=== PATIENT | female | born 1955 | race Caucasian/White ===

== ENCOUNTER 2016-04-05 05:42 | Day surgery (SDC) | payer OTHER ==
[2016-04-01 12:16] VITALS: BMI 16.2
[2016-04-05] MEDS ORDERED: KETAMINE HCL 500 MG/10 ML VIAL ONE (08:21)
[2016-04-05] MEDS ORDERED: LACTATED RINGERS SOLUTION 1,000 ML IV SCH (08:45)
[2016-04-05 09:28] VITALS: TEMP 98.8
[2016-04-05 10:01] VITALS: BP 121/76; PULSE 90
== END 2016-04-05 10:20 | disposition home or self-care (01) ==
LOC: FECT 05:42
PROVIDERS: ATTEND Psychiatry & Neurology Psychiatry
PROC: GZB4ZZZ Other Electroconvulsive Therapy (ICD-10-PCS; principal; 2016-04-05 08:30)
DX: F33.2 Major depressive disorder, recurrent severe without psychotic features (principal)
CPT/HCPCS: 90870; 94760

== ENCOUNTER 2016-04-08 05:47 | Day surgery (SDC) | payer OTHER ==
[2016-04-05 09:13] VITALS: BMI 16.2
[2016-04-08] MEDS ORDERED: LACTATED RINGERS SOLUTION 1,000 ML IV SCH (06:30)
[2016-04-08] MEDS ORDERED: KETAMINE HCL 500 MG/10 ML VIAL ONE (08:26)
[2016-04-08 09:40] VITALS: TEMP 98.2
[2016-04-08 10:22] VITALS: BP 116/78; PULSE 80
== END 2016-04-08 10:24 | disposition home or self-care (01) ==
LOC: FECT 05:47
PROVIDERS: ATTEND Psychiatry & Neurology Psychiatry
PROC: GZB4ZZZ Other Electroconvulsive Therapy (ICD-10-PCS; principal; 2016-04-08 08:15)
DX: F33.2 Major depressive disorder, recurrent severe without psychotic features (principal)
CPT/HCPCS: 90870; 94760

== ENCOUNTER 2016-04-12 05:36 | Day surgery (SDC) | payer OTHER ==
[2016-04-07 15:54] VITALS: BMI 16.2
[2016-04-12] MEDS ORDERED: LACTATED RINGERS SOLUTION 1,000 ML IV SCH (07:30)
[2016-04-12] MEDS ORDERED: KETAMINE HCL 500 MG/10 ML VIAL ONE (08:13)
[2016-04-12 09:52] VITALS: TEMP 98.2
[2016-04-12 10:06] VITALS: BP 127/82; PULSE 84
== END 2016-04-12 10:00 | disposition home or self-care (01) ==
LOC: FECT 05:36
PROVIDERS: ATTEND Psychiatry & Neurology Psychiatry
PROC: GZB4ZZZ Other Electroconvulsive Therapy (ICD-10-PCS; principal; 2016-04-12 07:00)
DX: F33.2 Major depressive disorder, recurrent severe without psychotic features (principal)
CPT/HCPCS: 90870; 94760

== ENCOUNTER 2016-04-15 05:44 | Day surgery (SDC) | payer OTHER ==
[2016-04-13 12:48] VITALS: BMI 16.2
[2016-04-15] MEDS ORDERED: KETAMINE HCL 500 MG/10 ML VIAL ONE (08:07)
[2016-04-15 10:00] VITALS: TEMP 97.8
[2016-04-15 10:01] VITALS: BP 101/61; PULSE 84
== END 2016-04-15 10:00 | disposition home or self-care (01) ==
LOC: FECT 05:44
PROVIDERS: ATTEND Psychiatry & Neurology Psychiatry
PROC: GZB4ZZZ Other Electroconvulsive Therapy (ICD-10-PCS; principal; 2016-04-15 07:45)
DX: F33.2 Major depressive disorder, recurrent severe without psychotic features (principal)
CPT/HCPCS: 90870; 94760

== ENCOUNTER 2016-04-18 05:46 | Day surgery (SDC) | payer OTHER ==
[2016-04-18] MEDS ORDERED: ACETAMINOPHEN 325 MG TABLET (FP) PO PRN (07:10)
[2016-04-18] MEDS ORDERED: SUCCINYLCHOLINE CHLORIDE 200 MG/10 ML VIAL ONE (07:21)
[2016-04-18] MEDS ORDERED: PROPOFOL 20 ML ONE (07:21)
[2016-04-18 07:29] VITALS: BMI 16.1
[2016-04-18] MEDS ORDERED: KETAMINE HCL 500 MG/10 ML VIAL ONE (08:17)
[2016-04-18 09:45] VITALS: TEMP 97.6
[2016-04-18 09:58] VITALS: BP 110/81; PULSE 81
== END 2016-04-18 10:35 | disposition home or self-care (01) ==
LOC: FECT 05:46
PROVIDERS: ATTEND Psychiatry & Neurology Psychiatry
PROC: GZB4ZZZ Other Electroconvulsive Therapy (ICD-10-PCS; principal; 2016-04-18 08:45)
DX: F33.2 Major depressive disorder, recurrent severe without psychotic features (principal)
CPT/HCPCS: 90870; 94760

== ENCOUNTER 2016-04-20 05:11 | Day surgery (SDC) | payer OTHER ==
[2016-04-15 16:05] VITALS: BMI 16.1
[2016-04-20] MEDS ORDERED: KETAMINE HCL 500 MG/10 ML VIAL ONE (08:13)
[2016-04-20] MEDS ORDERED: LACTATED RINGERS SOLUTION 1,000 ML IV SCH (08:45)
[2016-04-20 09:21] VITALS: TEMP 98.9
[2016-04-20 10:47] VITALS: BP 100/60; PULSE 80
== END 2016-04-20 10:40 | disposition home or self-care (01) ==
LOC: FECT 05:11
PROVIDERS: ATTEND Psychiatry & Neurology Psychiatry
PROC: GZB4ZZZ Other Electroconvulsive Therapy (ICD-10-PCS; principal; 2016-04-20 08:15)
DX: F33.2 Major depressive disorder, recurrent severe without psychotic features (principal)
CPT/HCPCS: 90870; 94760

== ENCOUNTER 2016-04-22 05:40 | Day surgery (SDC) | payer OTHER ==
[2016-04-18 15:08] VITALS: BMI 19.1
[2016-04-22 07:29] VITALS: TEMP 97.5
[2016-04-22] MEDS ORDERED: KETAMINE HCL 500 MG/10 ML VIAL ONE (09:00)
[2016-04-22 11:49] VITALS: BP 124/74; PULSE 85
[2016-04-22] MEDS ORDERED: LACTATED RINGERS SOLUTION 1,000 ML IV SCH (12:45)
[2016-04-22] MEDS ORDERED: ONDANSETRON 4 MG/2 ML VIAL IVPUSH PRN (13:11)
== END 2016-04-22 11:00 | disposition home or self-care (01) ==
LOC: FECT 05:40
PROVIDERS: ATTEND Psychiatry & Neurology Psychiatry
PROC: GZB4ZZZ Other Electroconvulsive Therapy (ICD-10-PCS; principal; 2016-04-22 08:15)
DX: F33.2 Major depressive disorder, recurrent severe without psychotic features (principal)
CPT/HCPCS: 90870; 94760

== ENCOUNTER → 2016-04-25 | Day surgery (SDC) | payer OTHER ==
[2016-04-19 10:45] VITALS: BMI 16.1
[~2016-04-25] MED LIST: KETAMINE HCL 500 MG/10 ML VIAL ONE
[2016-04-25 08:39] VITALS: TEMP 97.5
[2016-04-25 09:13] VITALS: BP 109/60; PULSE 92
== END | disposition home or self-care (01) ==
LOC: FECT 05:50
PROVIDERS: ATTEND Psychiatry & Neurology Psychiatry
PROC: GZB4ZZZ Other Electroconvulsive Therapy (ICD-10-PCS; principal; 2016-04-25 08:00)
DX: F33.2 Major depressive disorder, recurrent severe without psychotic features (principal)
CPT/HCPCS: 90870; 94760

== ENCOUNTER 2016-04-27 05:37 | Day surgery (SDC) | payer OTHER ==
[2016-04-25 08:46] VITALS: BMI 16.1
[2016-04-27] MEDS ORDERED: ONDANSETRON 4 MG/2 ML VIAL IVPUSH PRN (07:56)
[2016-04-27] MEDS ORDERED: LACTATED RINGERS SOLUTION 1,000 ML IV SCH (08:00)
[2016-04-27 09:10] VITALS: BP 122/82; PULSE 87; TEMP 97.8
== END 2016-04-27 09:30 | disposition home or self-care (01) ==
LOC: FECT 05:37
PROVIDERS: ATTEND Psychiatry & Neurology Psychiatry
PROC: GZB4ZZZ Other Electroconvulsive Therapy (ICD-10-PCS; principal; 2016-04-27 07:30)
DX: F33.2 Major depressive disorder, recurrent severe without psychotic features (principal)
CPT/HCPCS: 90870; 94760

== ENCOUNTER 2016-04-29 05:42 | Day surgery (SDC) | payer OTHER ==
[2016-04-26 12:10] VITALS: BMI 16.1
[2016-04-29] MEDS ORDERED: KETAMINE HCL 500 MG/10 ML VIAL ONE (08:16)
[2016-04-29 09:54] VITALS: TEMP 97.8
[2016-04-29 10:14] VITALS: BP 132/82; PULSE 87
== END 2016-04-29 10:15 | disposition home or self-care (01) ==
LOC: FECT 05:42
PROVIDERS: ATTEND Psychiatry & Neurology Psychiatry
PROC: GZB4ZZZ Other Electroconvulsive Therapy (ICD-10-PCS; principal; 2016-04-29 07:45)
DX: F33.2 Major depressive disorder, recurrent severe without psychotic features (principal)
CPT/HCPCS: 90870; 94760

== ENCOUNTER 2016-05-02 05:37 | Day surgery (SDC) | payer OTHER ==
[2016-04-26 12:13] VITALS: BMI 16.1
--- NOTE | 2016-05-02 07:08 | HP ---
Admitting History and Physical - Admission History of Present Illness: patient is a 60 y/o female, with a past medical history of severe depression and colitis. Patient presents for ECT, her last ECT was 04/29/16. patient reports feeling well. She does reports feeling an improvement in depressive symptoms since starting ECT. Patient denies any suicidal or homicidal ideation. She reports compliance with prescribed medication. 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) - Social History Usual Living Arrangement: Yes: With Child ADL: Independent History of Recent Travel: No Home Medications - Allergies Allergies/Adverse Reactions: Allergies Allergy/AdvReac Type Severity Reaction Status Date / Time No Known Drug Allergies Allergy Verified 04/25/16 06:57 - Home Medications Home Medications: Ambulatory Orders Diazepam 10 mg PO HS 03/30/16 Diazepam 20 mg PO BID 03/30/16 Diphenoxylate 2.5/Atropine.025 [Lomotil -] 0.5 tab PO DAILY 03/30/16 Levomilnacipran HCl [Fetzima] 60 mg PO BID 03/30/16 Loratadine [Claritin] 10 mg PO DAILY 03/30/16 Multivitamins [Multivit ([facility] Formul[facility])] 1 tab PO HS 03/30/16 Pantoprazole Sodium [Protonix] 40 mg PO Q2D 03/30/16 Potassium Citrate [Potassium Citrate ER] 1,080 mg PO HS 03/30/16 Topiramate 50 mg PO DAILY 03/30/16 Topiramate 100 mg PO HS 03/30/16 Ziprasidone [Geodon -] 60 mg PO BID 03/30/16 Bupropion HCl [Wellbutrin Xl -] 450 mg PO DAILY 04/18/16 Family Disease History - Family Disease History Family History: Unremarkable Review of Systems - Review of Systems Constitutional: reports: No Symptoms Eyes: reports: No Symptoms HENT: reports: No Symptoms Neck: reports: No Symptoms Cardiovascular: reports: No Symptoms Respiratory: reports: No Symptoms Gastrointestinal: reports: No Symptoms Genitourinary: reports: No Symptoms Breasts: reports: No Symptoms Reported Musculoskeletal: reports: No Symptoms Integumentary: reports: No Symptoms Neurological: reports: No Symptoms Endocrine: reports: No Symptoms Hematology/Lymphatic: reports: No Symptoms Psychiatric: reports: Depression. denies: Anxiety Physical Examination Constitutional: Yes: No Distress, Calm, Cachectic Eyes: Yes: WNL, Conjunctiva Clear, EOM Intact HENT: Yes: WNL, Atraumatic, Normocephalic Neck: Yes: WNL, Supple, Trachea Midline Cardiovascular: Yes: WNL, Regular Rate and Rhythm, S1, S3 Respiratory: Yes: WNL, Regular, CTA Bilaterally Gastrointestinal: Yes: WNL, Normal Bowel Sounds, Soft ...Rectal Exam: Yes: Deferred Renal/: Yes: WNL. No: CVA Tenderness - Left, CVA Tenderness - Right Breast(s): Yes: WNL Musculoskeletal: Yes: WNL Extremities: Yes: WNL Edema: No Peripheral Pulses WNL: Yes Peripheral Pulses: Left Radial: 4+, Right Radial: 4+, Left Doralis Pedis: 3+, Right Dorsalis Pedis: 3+, Left Femoral: 3+, Right Femoral: 3+ Integumentary: Yes: WNL Neurological: Yes: WNL, Alert, Oriented ...Motor Strength: WNL Psychiatric: Yes: WNL, Alert, Oriented Labs: reviewed 03/18 Imaging - Results EKG: Image Reviewed, Other (nsr) Assessment/Plan pt is a 60 y/o female that presents for ECT, she has received ect in the past and denies any adverse reaction to anesthesia. labs and ekg reviewed low risk for ect. informed consent, risks & benefits to be obtained by Dr Machuca
[2016-05-02] MEDS ORDERED: KETAMINE HCL 500 MG/10 ML VIAL ONE (08:14)
[2016-05-02 09:12] VITALS: TEMP 97.9
[2016-05-02 10:11] VITALS: BP 130/79; PULSE 88
== END 2016-05-02 10:25 | disposition home or self-care (01) ==
LOC: FECT 05:37
PROVIDERS: ATTEND Psychiatry & Neurology Psychiatry
PROC: GZB4ZZZ Other Electroconvulsive Therapy (ICD-10-PCS; principal; 2016-05-02 07:15)
DX: F33.2 Major depressive disorder, recurrent severe without psychotic features (principal)
CPT/HCPCS: 90870; 94760

== ENCOUNTER 2016-05-04 05:39 | Day surgery (SDC) | payer OTHER ==
[2016-05-02 12:03] VITALS: BMI 16.1
[2016-05-04] MEDS ORDERED: ONDANSETRON 4 MG/2 ML VIAL IVPUSH PRN (07:22)
[2016-05-04] MEDS ORDERED: ACETAMINOPHEN 325 MG TABLET (FP) PO PRN (07:22)
[2016-05-04] MEDS ORDERED: LACTATED RINGERS SOLUTION 1,000 ML IV SCH (07:30)
[2016-05-04] MEDS ORDERED: KETAMINE HCL 500 MG/10 ML VIAL ONE (07:42)
[2016-05-04 08:35] VITALS: BP 110/74; TEMP 97.6
[2016-05-04 09:08] VITALS: PULSE 98
== END 2016-05-04 09:10 | disposition home or self-care (01) ==
LOC: FECT 05:39
PROVIDERS: ATTEND Psychiatry & Neurology Psychiatry
PROC: GZB4ZZZ Other Electroconvulsive Therapy (ICD-10-PCS; principal; 2016-05-04 07:45)
DX: F33.2 Major depressive disorder, recurrent severe without psychotic features (principal)
CPT/HCPCS: 90870; 94760

== ENCOUNTER 2016-05-06 05:37 | Day surgery (SDC) | payer OTHER ==
[2016-05-04 11:13] VITALS: BMI 16.1
[2016-05-06] MEDS ORDERED: LACTATED RINGERS SOLUTION 1,000 ML IV SCH (08:45)
[2016-05-06] MEDS ORDERED: KETAMINE HCL 500 MG/10 ML VIAL ONE (09:08)
[2016-05-06] MEDS ORDERED: ONDANSETRON 4 MG/2 ML VIAL IVPUSH PRN (09:12)
[2016-05-06 10:00] VITALS: TEMP 98.8
[2016-05-09 10:21] VITALS: BP 118/70; PULSE 90
== END 2016-05-06 10:30 | disposition home or self-care (01) ==
LOC: FECT 05:37
PROVIDERS: ATTEND Psychiatry & Neurology Psychiatry
PROC: GZB4ZZZ Other Electroconvulsive Therapy (ICD-10-PCS; principal; 2016-05-06 07:30)
DX: F33.2 Major depressive disorder, recurrent severe without psychotic features (principal)
CPT/HCPCS: 90870; 94760

== ENCOUNTER 2016-05-09 05:48 | Day surgery (SDC) | payer OTHER ==
[2016-05-04 11:16] VITALS: BMI 17.0
[2016-05-09 07:26] VITALS: TEMP 97.8
[2016-05-09] MEDS ORDERED: KETAMINE HCL 500 MG/10 ML VIAL ONE (08:13)
[2016-05-09] MEDS ORDERED: LACTATED RINGERS SOLUTION 1,000 ML IV SCH (08:30)
[2016-05-09 09:44] VITALS: PULSE 89
[2016-05-09 09:57] VITALS: BP 110/74
== END 2016-05-09 10:20 | disposition home or self-care (01) ==
LOC: FECT 05:48
PROVIDERS: ATTEND Psychiatry & Neurology Psychiatry
PROC: GZB4ZZZ Other Electroconvulsive Therapy (ICD-10-PCS; principal; 2016-05-09 08:00)
DX: F33.2 Major depressive disorder, recurrent severe without psychotic features (principal)
CPT/HCPCS: 90870; 94760

== ENCOUNTER 2016-05-16 05:45 | Day surgery (SDC) | payer OTHER ==
[2016-05-06 17:00] VITALS: BMI 16.1
[2016-05-16] MEDS ORDERED: ONDANSETRON 4 MG/2 ML VIAL IVPUSH PRN (06:23)
[2016-05-16 07:24] VITALS: TEMP 97.8
[2016-05-16 10:32] VITALS: BP 106/71; PULSE 83
== END 2016-05-16 10:37 | disposition home or self-care (01) ==
LOC: FECT 05:45
PROVIDERS: ATTEND Psychiatry & Neurology Psychiatry
PROC: GZB4ZZZ Other Electroconvulsive Therapy (ICD-10-PCS; principal; 2016-05-16 08:00)
DX: F33.2 Major depressive disorder, recurrent severe without psychotic features (principal)
CPT/HCPCS: 90870; 94760

== ENCOUNTER 2016-05-19 05:27 | Day surgery (SDC) | payer OTHER ==
[2016-05-16 13:31] VITALS: BMI 17.0
[2016-05-19] MEDS ORDERED: KETAMINE HCL 500 MG/10 ML VIAL ONE (07:46)
[2016-05-19] MEDS ORDERED: ONDANSETRON 4 MG/2 ML VIAL IVPUSH PRN (08:36)
[2016-05-19 09:06] VITALS: TEMP 98
[2016-05-19 09:41] VITALS: BP 120/82; PULSE 82
== END 2016-05-19 09:30 | disposition home or self-care (01) ==
LOC: FECT 05:27
PROVIDERS: ATTEND Psychiatry & Neurology Psychiatry
PROC: GZB4ZZZ Other Electroconvulsive Therapy (ICD-10-PCS; principal; 2016-05-19 07:15)
DX: F33.2 Major depressive disorder, recurrent severe without psychotic features (principal)
CPT/HCPCS: 90870; 94760

== ENCOUNTER 2016-05-23 05:43 | Day surgery (SDC) | payer OTHER ==
[2016-05-16 17:10] VITALS: BMI 16.1
[2016-05-23 07:00] VITALS: TEMP 98
[2016-05-23 08:40] VITALS: BP 113/73; PULSE 94
== END 2016-05-23 09:00 | disposition home or self-care (01) ==
LOC: FECT 05:43
PROVIDERS: ATTEND Psychiatry & Neurology Psychiatry
PROC: GZB4ZZZ Other Electroconvulsive Therapy (ICD-10-PCS; principal; 2016-05-23 07:00)
DX: F33.2 Major depressive disorder, recurrent severe without psychotic features (principal)
CPT/HCPCS: 90870; 94760

== ENCOUNTER 2016-05-26 05:38 | Day surgery (SDC) | payer OTHER ==
[2016-05-17 11:08] VITALS: BMI 17.0
[2016-05-26] MEDS ORDERED: ONDANSETRON 4 MG/2 ML VIAL IVPUSH PRN (07:08)
[2016-05-26] MEDS ORDERED: LACTATED RINGERS SOLUTION 1,000 ML IV SCH (07:15)
[2016-05-26] MEDS ORDERED: KETAMINE HCL 500 MG/10 ML VIAL ONE (07:27)
[2016-05-26 08:32] VITALS: TEMP 97.7
[2016-05-26 09:33] VITALS: BP 104/74; PULSE 91
== END 2016-05-26 09:15 | disposition home or self-care (01) ==
LOC: FECT 05:38
PROVIDERS: ATTEND Psychiatry & Neurology Psychiatry
PROC: GZB4ZZZ Other Electroconvulsive Therapy (ICD-10-PCS; principal; 2016-05-26 07:00)
DX: F33.2 Major depressive disorder, recurrent severe without psychotic features (principal)
CPT/HCPCS: 90870; 94760

== ENCOUNTER 2016-05-30 05:35 | Day surgery (SDC) | payer OTHER ==
[2016-05-27 10:44] VITALS: BMI 17.0
[2016-05-30] MEDS ORDERED: ONDANSETRON 4 MG/2 ML VIAL IVPUSH PRN ×2 (07:05→07:53)
--- NOTE | 2016-05-30 07:10 | HP ---
Admitting History and Physical - Admission History of Present Illness: patient is a 60 y/o female with a past medical history of depression and colitis that presents for ect.. Her last ECT was 05/26/16. She reports feeling well and reports an improvement in depressive symptoms since starting ect. she denies any recent medication changes and denies any recent illness or hospitalizations. patient denies any suicidal or homicidal ideation, visual or auditory hallucination. 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) - Social History Usual Living Arrangement: Yes: With Child ADL: Independent History of Recent Travel: No Home Medications - Allergies Allergies/Adverse Reactions: Allergies Allergy/AdvReac Type Severity Reaction Status Date / Time No Known Drug Allergies Allergy Verified 05/02/16 07:32 - Home Medications Home Medications: Ambulatory Orders Diazepam 10 mg PO HS 03/30/16 Diazepam 20 mg PO BID 03/30/16 Diphenoxylate 2.5/Atropine.025 [Lomotil -] 0.5 tab PO TID 03/30/16 Levomilnacipran HCl [Fetzima] 60 mg PO BID 03/30/16 Loratadine [Claritin] 10 mg PO DAILY 03/30/16 Multivitamins [Multivit ([facility] Formul[facility])] 1 tab PO HS 03/30/16 Pantoprazole Sodium [Protonix] 40 mg PO Q2D 03/30/16 Potassium Citrate [Potassium Citrate ER] 1,080 mg PO HS 03/30/16 Topiramate 50 mg PO DAILY 03/30/16 Topiramate 100 mg PO HS 03/30/16 Ziprasidone [Geodon -] 60 mg PO BID 03/30/16 Bupropion HCl [Wellbutrin Xl -] 450 mg PO DAILY 04/18/16 Family Disease History - Family Disease History Family History: Unremarkable Review of Systems - Review of Systems Constitutional: reports: No Symptoms Eyes: reports: No Symptoms HENT: reports: No Symptoms Neck: reports: No Symptoms Cardiovascular: reports: No Symptoms Respiratory: reports: No Symptoms Gastrointestinal: reports: No Symptoms Genitourinary: reports: No Symptoms Musculoskeletal: reports: No Symptoms Integumentary: reports: No Symptoms Neurological: reports: No Symptoms Endocrine: reports: No Symptoms Hematology/Lymphatic: reports: No Symptoms Psychiatric: reports: No Symptoms Physical Examination Constitutional: Yes: Well Nourished, No Distress, Calm, Thin Eyes: Yes: WNL, Conjunctiva Clear, EOM Intact HENT: Yes: WNL, Atraumatic, Normocephalic Neck: Yes: WNL, Supple, Trachea Midline Cardiovascular: Yes: WNL, Regular Rate and Rhythm, S1, S2 Respiratory: Yes: WNL, Regular, CTA Bilaterally Gastrointestinal: Yes: WNL, Normal Bowel Sounds, Soft ...Rectal Exam: Yes: Deferred Renal/: Yes: WNL Breast(s): Yes: WNL Musculoskeletal: Yes: WNL Extremities: Yes: WNL Edema: No Peripheral Pulses WNL: Yes Peripheral Pulses: Left Radial: 4+, Right Radial: 4+, Left Doralis Pedis: 3+, Right Dorsalis Pedis: 3+, Left Femoral: 3+, Right Femoral: 3+ Integumentary: Yes: WNL Neurological: Yes: WNL, Alert, Oriented ...Motor Strength: WNL Psychiatric: Yes: WNL, Alert, Oriented Labs: reviewed 04/01/16 Imaging - Results EKG: Image Reviewed, Other (nsr no ischemic changes) Assessment/Plan pt is a 60 y/o female that presents for ect, pt has received ect in the past denies any adverse reaction to anesthesia labs and ekg reviewed pt is low risk for procedure informed consent, risks/benefits to be obtained by Dr Machuca
[2016-05-30] MEDS ORDERED: KETAMINE HCL 500 MG/10 ML VIAL ONE (07:41)
[2016-05-30] MEDS ORDERED: LACTATED RINGERS SOLUTION 1,000 ML IV SCH (08:00)
[2016-05-30 08:21] VITALS: PULSE 89
[2016-05-30 08:41] VITALS: TEMP 97.7
[2016-05-30] MEDS ORDERED: PROMETHAZINE HCL 25 MG/1 ML VIAL IVPUSH PRN (08:53)
[2016-05-30 08:56] VITALS: BP 95/68
== END 2016-05-30 09:40 | disposition home or self-care (01) ==
LOC: FECT 05:35
PROVIDERS: ATTEND Psychiatry & Neurology Psychiatry
PROC: GZB4ZZZ Other Electroconvulsive Therapy (ICD-10-PCS; principal; 2016-05-30 07:30)
DX: F33.2 Major depressive disorder, recurrent severe without psychotic features (principal)
CPT/HCPCS: 90870; 94760

== ENCOUNTER 2016-06-06 05:35 | Day surgery (SDC) | payer OTHER ==
[2016-05-30 16:52] VITALS: BMI 17.0
[2016-06-06] MEDS ORDERED: KETAMINE HCL 500 MG/10 ML VIAL ONE (07:23)
[2016-06-06 08:58] VITALS: TEMP 97.8
[2016-06-06 09:00] VITALS: BP 121/71; PULSE 66
== END 2016-06-06 09:30 | disposition home or self-care (01) ==
LOC: FECT 05:35
PROVIDERS: ATTEND Psychiatry & Neurology Psychiatry
PROC: GZB4ZZZ Other Electroconvulsive Therapy (ICD-10-PCS; principal; 2016-06-06 07:00)
DX: F33.2 Major depressive disorder, recurrent severe without psychotic features (principal)
CPT/HCPCS: 90870; 94760

== ENCOUNTER 2016-06-22 05:37 | Day surgery (SDC) | payer OTHER ==
[~2016-06-22 05:37] MED LIST changes: -KETAMINE HCL 500 MG/10 ML VIAL ONE; +LACTATED RINGERS SOLUTION 1,000 ML IV SCH
[2016-06-22 07:12] VITALS: BMI 16.0
[2016-06-22] MEDS ORDERED: KETAMINE HCL 500 MG/10 ML VIAL ONE (07:35)
[2016-06-22 15:24] VITALS: BP 132/77; PULSE 67; TEMP 97.9
== END 2016-06-22 09:10 | disposition home or self-care (01) ==
LOC: FECT 05:37
PROVIDERS: ATTEND Psychiatry & Neurology Psychiatry
PROC: GZB4ZZZ Other Electroconvulsive Therapy (ICD-10-PCS; principal; 2016-06-22 07:00)
DX: F33.2 Major depressive disorder, recurrent severe without psychotic features (principal)
CPT/HCPCS: 90870; 94760

== ENCOUNTER 2016-06-27 05:43 | Day surgery (SDC) | payer OTHER ==
[2016-06-24 09:08] VITALS: BMI 16.0
[2016-06-27] MEDS ORDERED: ONDANSETRON 4 MG/2 ML VIAL IVPUSH PRN (06:44)
--- NOTE | 2016-06-27 06:57 | HP ---
Admitting History and Physical - Admission History of Present Illness: patient is a 60 y/o female of depression and colitis that presents for ECT. Her last ECT was 06/22/16. Patient reports feeling well, she denies any recent illness or hospitalizations. Patient does reports an improvment in depressive symptoms since starting ECT. 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) - Social History Usual Living Arrangement: Yes: With Child ADL: Independent History of Recent Travel: No Home Medications - Allergies Allergies/Adverse Reactions: Allergies Allergy/AdvReac Type Severity Reaction Status Date / Time No Known Drug Allergies Allergy Verified 06/24/16 09:00 - Home Medications Home Medications: Ambulatory Orders Diazepam 10 mg PO HS 03/30/16 Diazepam 20 mg PO BID 03/30/16 Levomilnacipran HCl [Fetzima] 60 mg PO BID 03/30/16 Loratadine [Claritin] 10 mg PO DAILY 03/30/16 Multivitamins [Multivit ([facility] Form[facility])] 1 tab PO HS 03/30/16 Pantoprazole Sodium [Protonix] 40 mg PO Q2D 03/30/16 Potassium Citrate [Potassium Citrate ER] 1,080 mg PO HS 03/30/16 Topiramate 50 mg PO DAILY 03/30/16 Topiramate 100 mg PO HS 03/30/16 Ziprasidone [Geodon -] 60 mg PO BID 03/30/16 Bupropion HCl [Wellbutrin Xl -] 450 mg PO DAILY 04/18/16 Budesonide [Uceris (Nonformulary)] 9 mg PO DAILY 06/13/16 Amoxicillin - [Amoxicillin 875mg Tablet -] 875 mg PO BID 06/22/16 Ibuprofen 800 mg PO Q8H PRN 06/22/16 Family Disease History - Family Disease History Family History: Unremarkable Review of Systems - Review of Systems Constitutional: reports: No Symptoms Eyes: reports: No Symptoms HENT: reports: No Symptoms Neck: reports: No Symptoms Cardiovascular: reports: No Symptoms Respiratory: reports: No Symptoms Gastrointestinal: reports: No Symptoms Genitourinary: reports: No Symptoms Breasts: reports: No Symptoms Reported Musculoskeletal: reports: No Symptoms Integumentary: reports: No Symptoms Neurological: reports: No Symptoms Endocrine: reports: No Symptoms Hematology/Lymphatic: reports: No Symptoms Psychiatric: reports: No Symptoms Physical Examination Constitutional: Yes: Well Nourished, No Distress, Calm Eyes: Yes: WNL, Conjunctiva Clear, EOM Intact HENT: Yes: WNL, Atraumatic, Normocephalic Neck: Yes: WNL, Supple, Trachea Midline Cardiovascular: Yes: WNL, Regular Rate and Rhythm, S1, S2 Respiratory: Yes: WNL, Regular, CTA Bilaterally Gastrointestinal: Yes: WNL, Normal Bowel Sounds, Soft ...Rectal Exam: Yes: Deferred Renal/: Yes: WNL Musculoskeletal: Yes: WNL Extremities: Yes: WNL Edema: No Peripheral Pulses WNL: Yes Peripheral Pulses: Left Radial: 4+, Right Radial: 4+, Left Doralis Pedis: 3+, Right Dorsalis Pedis: 3+, Left Femoral: 3+, Right Femoral: 3+ Integumentary: Yes: WNL Neurological: Yes: WNL, Alert, Oriented ...Motor Strength: WNL Psychiatric: Yes: WNL, Alert, Oriented Labs: reviewed 04/01/16 Imaging - Results EKG: Report Reviewed, Image Reviewed, Other (nsr no ischemic changes) Assessment/Plan patient is a 60 y/o female that presents for ECT, pt has received ect in the past and denies any adverse reaction to anesthesia labs and ekg reviewed pt is low risk for procedure informed consent, risk/benefits to be obtained by Dr Machuca
[2016-06-27] MEDS ORDERED: KETAMINE HCL 500 MG/10 ML VIAL ONE (07:41)
[2016-06-27 11:23] VITALS: TEMP 98.2
[2016-06-27 11:26] VITALS: BP 95/65; PULSE 92
== END 2016-06-27 09:30 | disposition home or self-care (01) ==
LOC: FECT 05:43
PROVIDERS: ATTEND Psychiatry & Neurology Psychiatry
PROC: GZB4ZZZ Other Electroconvulsive Therapy (ICD-10-PCS; principal; 2016-06-27 07:30)
DX: F33.2 Major depressive disorder, recurrent severe without psychotic features (principal)
CPT/HCPCS: 90870; 94760

== ENCOUNTER 2016-07-06 05:47 | Day surgery (SDC) | payer OTHER ==
[2016-07-05 10:49] VITALS: BMI 16.0
[2016-07-06] MEDS ORDERED: KETAMINE HCL 500 MG/10 ML VIAL ONE (07:47)
[2016-07-06] MEDS ORDERED: ONDANSETRON 4 MG/2 ML VIAL IVPUSH PRN (08:50)
[2016-07-06 09:18] VITALS: TEMP 97.7
[2016-07-06 09:19] VITALS: BP 104/74; PULSE 79
== END 2016-07-06 09:20 | disposition home or self-care (01) ==
LOC: FECT 05:47
PROVIDERS: ATTEND Psychiatry & Neurology Psychiatry
PROC: GZB4ZZZ Other Electroconvulsive Therapy (ICD-10-PCS; principal; 2016-07-06 07:45)
DX: F33.2 Major depressive disorder, recurrent severe without psychotic features (principal)
CPT/HCPCS: 90870; 94760

== ENCOUNTER 2016-07-18 05:48 | Day surgery (SDC) | payer OTHER ==
[2016-07-12 10:34] VITALS: BMI 16.0
[2016-07-18] MEDS ORDERED: KETAMINE HCL 500 MG/10 ML VIAL ONE (08:55)
[2016-07-18] MEDS ORDERED: AMPICILLIN NA/SULBACTAM NA 1.5 GM VIAL ONE (09:53)
[2016-07-18] MEDS ORDERED: SODIUM CHLORIDE 0.9% P/F 10 ML VIAL IJ ONE (09:53)
[2016-07-18 11:07] VITALS: TEMP 97.7
[2016-07-18 11:11] VITALS: BP 104/74; PULSE 88
== END 2016-07-18 11:00 | disposition home or self-care (01) ==
LOC: FECT 05:48
PROVIDERS: ATTEND Psychiatry & Neurology Psychiatry
PROC: GZB4ZZZ Other Electroconvulsive Therapy (ICD-10-PCS; principal; 2016-07-18 08:30)
DX: F33.2 Major depressive disorder, recurrent severe without psychotic features (principal)
CPT/HCPCS: 90870; 94760

== ENCOUNTER 2016-07-29 05:43 | Day surgery (SDC) | payer OTHER ==
--- NOTE | 2016-07-29 07:16 | HP ---
Admitting History and Physical - Admission History of Present Illness: patient is a 60 y/o female with a past medical history of depression. patient presents for ECT, her last ECT was 07/23/16. patient reports feeling well, she reports an increase in [place]. She reports compliance with prescribed medications. She reports an improvement in depressive symptoms since starting ECT. She denies any suicidal or homicidal ideation or visual or auditory hallucinations. 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) - Social History Usual Living Arrangement: Yes: Other (with son) ADL: Independent History of Recent Travel: No Home Medications - Allergies Allergies/Adverse Reactions: Allergies Allergy/AdvReac Type Severity Reaction Status Date / Time No Known Drug Allergies Allergy Verified 06/24/16 09:00 - Home Medications Home Medications: Ambulatory Orders Diazepam 10 mg PO HS 03/30/16 Diazepam 20 mg PO BID 03/30/16 Levomilnacipran HCl [Fetzima] 60 mg PO BID 03/30/16 Loratadine [Claritin] 10 mg PO DAILY 03/30/16 Multivitamins [Multivit ([facility] Formul[facility])] 1 tab PO HS 03/30/16 Pantoprazole Sodium [Protonix] 40 mg PO Q2D 03/30/16 Potassium Citrate [Potassium Citrate ER] 1,080 mg PO HS 03/30/16 Topiramate 50 mg PO DAILY 03/30/16 Topiramate 100 mg PO HS 03/30/16 Ziprasidone [Geodon -] 60 mg PO BID 03/30/16 Bupropion HCl [Wellbutrin Xl -] 450 mg PO DAILY 04/18/16 Budesonide [Uceris (Nonformulary)] 9 mg PO DAILY 06/13/16 Ibuprofen 800 mg PO Q8H PRN 06/22/16 Family Disease History - Family Disease History Family History: Unremarkable Review of Systems - Review of Systems Constitutional: reports: No Symptoms Eyes: reports: No Symptoms HENT: reports: No Symptoms Neck: reports: No Symptoms Cardiovascular: reports: No Symptoms Respiratory: reports: No Symptoms Gastrointestinal: reports: No Symptoms Genitourinary: reports: No Symptoms Musculoskeletal: reports: No Symptoms Integumentary: reports: No Symptoms Neurological: reports: No Symptoms Endocrine: reports: No Symptoms Hematology/Lymphatic: reports: No Symptoms Psychiatric: reports: No Symptoms Physical Examination Constitutional: Yes: Well Nourished, No Distress, Calm, Thin Eyes: Yes: WNL, Conjunctiva Clear, EOM Intact HENT: Yes: WNL, Atraumatic, Normocephalic Neck: Yes: WNL, Supple, Trachea Midline Cardiovascular: Yes: WNL, Regular Rate and Rhythm Respiratory: Yes: WNL, Regular, CTA Bilaterally Gastrointestinal: Yes: WNL, Normal Bowel Sounds, Soft ...Rectal Exam: Yes: Deferred Renal/: Yes: WNL Breast(s): Yes: WNL Musculoskeletal: Yes: WNL Extremities: Yes: WNL Edema: No Peripheral Pulses WNL: Yes Peripheral Pulses: Left Radial: 4+, Right Radial: 4+, Left Doralis Pedis: 3+, Right Dorsalis Pedis: 3+, Left Femoral: 3+, Right Femoral: 3+ Integumentary: Yes: WNL Neurological: Yes: WNL, Alert, Oriented ...Motor Strength: WNL Psychiatric: Yes: WNL, Alert, Oriented Labs: reviewed 03/18 Imaging - Results EKG: Image Reviewed (nsr no ischemic changes) Assessment/Plan pt is 60 y/o female that presents for ECT pt has received ect in the past and denies any adverse reaction to anesthesia labs and ekg reviewed informed consent and risks/benefits to be obtained by Dr Machuca
[2016-07-29 07:24] VITALS: BMI 16.0
[2016-07-29] MEDS ORDERED: KETAMINE HCL 500 MG/10 ML VIAL ONE (08:14)
[2016-07-29] MEDS ORDERED: ONDANSETRON 4 MG/2 ML VIAL IVPUSH PRN (08:44)
[2016-07-29] MEDS ORDERED: LACTATED RINGERS SOLUTION 1,000 ML IV SCH (08:45)
[2016-07-29 10:50] VITALS: TEMP 98
[2016-07-29 10:52] VITALS: PULSE 87
[2016-07-29 10:59] VITALS: BP 102/66
== END 2016-07-29 10:00 | disposition home or self-care (01) ==
LOC: FECT 05:43
PROVIDERS: ATTEND Psychiatry & Neurology Psychiatry
PROC: GZB4ZZZ Other Electroconvulsive Therapy (ICD-10-PCS; principal; 2016-07-29 08:00)
DX: F33.2 Major depressive disorder, recurrent severe without psychotic features (principal)
CPT/HCPCS: 90870; 94760

== ENCOUNTER 2016-08-15 05:43 | Day surgery (SDC) | payer OTHER ==
[2016-08-09 11:10] VITALS: BMI 16.0
[2016-08-15] MEDS ORDERED: KETAMINE HCL 500 MG/10 ML VIAL ONE (08:25)
[2016-08-15 09:43] VITALS: TEMP 97.7
[2016-08-15 10:27] VITALS: BP 102/72; PULSE 66
== END 2016-08-15 10:55 | disposition home or self-care (01) ==
LOC: FECT 05:43
PROVIDERS: ATTEND Psychiatry & Neurology Psychiatry
PROC: GZB4ZZZ Other Electroconvulsive Therapy (ICD-10-PCS; principal; 2016-08-15 07:45)
DX: F33.2 Major depressive disorder, recurrent severe without psychotic features (principal)
CPT/HCPCS: 90870; 94760

== ENCOUNTER 2016-08-30 05:45 | Day surgery (SDC) | payer OTHER ==
--- NOTE | 2016-08-30 06:59 | HP ---
Admitting History and Physical - Admission History of Present Illness: patient is a 61 y/o female with a past medical history of depression, patient presents for ECT, her last ECT was 08/15/16. She reports feeling well. Patient reports an improvement in depressive symptoms since starting ect. Patient reports tapering her bud[place]ide. Patient denies any recent illness or hosptializations. She reports compliance with prescribed medications. . patient denies any suicidal or homicidal ideation, visual or auditory hallucinations. 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) - Social History Usual Living Arrangement: Yes: Other (with son) ADL: Independent History of Recent Travel: No Home Medications - Allergies Allergies/Adverse Reactions: Allergies Allergy/AdvReac Type Severity Reaction Status Date / Time No Known Drug Allergies Allergy Verified 08/15/16 07:52 - Home Medications Home Medications: Ambulatory Orders Diazepam 10 mg PO HS 03/30/16 Diazepam 20 mg PO BID 03/30/16 Levomilnacipran HCl [Fetzima] 60 mg PO BID 03/30/16 Loratadine [Claritin] 10 mg PO DAILY 03/30/16 Multivitamins [Multivit ([facility] Formul[facility])] 1 tab PO HS 03/30/16 Pantoprazole Sodium [Protonix] 40 mg PO Q2D 03/30/16 Potassium Citrate [Potassium Citrate ER] 1,080 mg PO HS 03/30/16 Topiramate 50 mg PO DAILY 03/30/16 Topiramate 100 mg PO HS 03/30/16 Ziprasidone [Geodon -] 80 mg PO BID 03/30/16 Bupropion HCl [Wellbutrin Xl -] 450 mg PO DAILY 04/18/16 Budesonide [Uceris (Nonformulary)] 9 mg PO DAILY 06/13/16 Family Disease History - Family Disease History Family History: Unremarkable Review of Systems - Review of Systems Constitutional: reports: No Symptoms Eyes: reports: No Symptoms HENT: reports: No Symptoms Neck: reports: No Symptoms Cardiovascular: reports: No Symptoms Respiratory: reports: No Symptoms Gastrointestinal: reports: No Symptoms Genitourinary: reports: No Symptoms Musculoskeletal: reports: No Symptoms Integumentary: reports: No Symptoms Neurological: reports: No Symptoms Endocrine: reports: No Symptoms Hematology/Lymphatic: reports: No Symptoms Psychiatric: reports: No Symptoms Physical Examination Constitutional: Yes: Well Nourished, No Distress, Calm Eyes: Yes: WNL, Conjunctiva Clear, EOM Intact HENT: Yes: WNL, Atraumatic, Normocephalic Neck: Yes: WNL, Supple, Trachea Midline Cardiovascular: Yes: WNL, Regular Rate and Rhythm, S1, S2 Respiratory: Yes: WNL, Regular, CTA Bilaterally Gastrointestinal: Yes: WNL, Normal Bowel Sounds, Soft ...Rectal Exam: Yes: Deferred Renal/: Yes: WNL Breast(s): Yes: WNL Musculoskeletal: Yes: WNL Extremities: Yes: WNL Edema: No Peripheral Pulses WNL: Yes Peripheral Pulses: Left Radial: 4+, Right Radial: 4+, Left Doralis Pedis: 3+, Right Dorsalis Pedis: 3+, Left Femoral: 3+, Right Femoral: 3+ Integumentary: Yes: WNL Neurological: Yes: WNL, Alert, Oriented ...Motor Strength: WNL Psychiatric: Yes: WNL, Alert, Oriented Labs: reviewed 03/18 Imaging - Results EKG: Image Reviewed, Other Assessment/Plan pt is a 61 y/o female that presents for ect, she has received ect in the past and denies any adverse reaction to anesthesia. labs and ekg reviewed pt is low risk for procedure informed consent, risks, benefits to be obtained by Dr Machuca
[2016-08-30 07:21] VITALS: BMI 16.0
[2016-08-30] MEDS ORDERED: ACETAMINOPHEN 325 MG TABLET (FP) PO PRN (07:51)
[2016-08-30] MEDS ORDERED: ONDANSETRON 4 MG/2 ML VIAL IVPUSH PRN (07:51)
[2016-08-30] MEDS ORDERED: KETAMINE HCL 500 MG/10 ML VIAL ONE (08:15)
[2016-08-30 09:27] VITALS: TEMP 98
[2016-08-30 09:42] VITALS: BP 108/73; PULSE 83
== END 2016-08-30 10:25 | disposition home or self-care (01) ==
LOC: FECT 05:45
PROVIDERS: ATTEND Psychiatry & Neurology Psychiatry
PROC: GZB4ZZZ Other Electroconvulsive Therapy (ICD-10-PCS; principal; 2016-08-30 08:00)
DX: F33.2 Major depressive disorder, recurrent severe without psychotic features (principal)
CPT/HCPCS: 90870; 94760

== ENCOUNTER 2016-09-12 05:36 | Day surgery (SDC) | payer OTHER ==
[2016-08-30 12:53] VITALS: BMI 16.0
[2016-09-12] MEDS ORDERED: LACTATED RINGERS SOLUTION 1,000 ML IV SCH (06:30)
[2016-09-12] MEDS ORDERED: KETAMINE HCL 500 MG/10 ML VIAL ONE (08:00)
[2016-09-12] MEDS ORDERED: ACETAMINOPHEN 1000 MG/100 ML VIAL (NON FORMULARY) IVPB PRN (08:24)
[2016-09-12 09:25] VITALS: TEMP 97.5
[2016-09-12 10:15] VITALS: BP 94/68; PULSE 86
== END 2016-09-12 10:30 | disposition home or self-care (01) ==
LOC: FECT 05:36
PROVIDERS: ATTEND Psychiatry & Neurology Psychiatry
PROC: GZB4ZZZ Other Electroconvulsive Therapy (ICD-10-PCS; principal; 2016-09-12 07:00)
DX: F33.2 Major depressive disorder, recurrent severe without psychotic features (principal)
CPT/HCPCS: 90870; 94760

== ENCOUNTER 2016-09-26 05:37 | Day surgery (SDC) | payer OTHER ==
[2016-09-26] MEDS ORDERED: KETAMINE HCL 500 MG/10 ML VIAL ONE (08:53)
[2016-09-26] MEDS ORDERED: LACTATED RINGERS SOLUTION 1,000 ML IV SCH (09:30)
[2016-09-26 10:37] VITALS: PULSE 84; TEMP 97.5
[2016-09-26 10:40] VITALS: BP 112/70
== END 2016-09-26 10:55 | disposition home or self-care (01) ==
LOC: FECT 05:37
PROVIDERS: ATTEND Psychiatry & Neurology Psychiatry
PROC: GZB4ZZZ Other Electroconvulsive Therapy (ICD-10-PCS; principal; 2016-09-26 07:00)
DX: F33.2 Major depressive disorder, recurrent severe without psychotic features (principal)
CPT/HCPCS: 90870; 94760

== ENCOUNTER 2016-10-10 05:40 | Day surgery (SDC) | payer OTHER ==
--- NOTE | 2016-10-10 06:58 | HP ---
Admitting History and Physical - Admission History of Present Illness: Patient is a 61 y/o female with a past medical history of depression and colitis. Patient presents for ect, her last ect was 09/28/16. Patient reports feeling well, she denies any changes in medications. Patient denies any recent illness or hospitalizations. She denies any suicidal or homicidal ideation, visual or auditory hallucinations. 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) - Social History Usual Living Arrangement: Yes: With Child ADL: Independent History of Recent Travel: No Home Medications - Allergies Allergies/Adverse Reactions: Allergies Allergy/AdvReac Type Severity Reaction Status Date / Time No Known Drug Allergies Allergy Verified 08/15/16 07:52 - Home Medications Home Medications: Ambulatory Orders Diazepam 10 mg PO HS 03/30/16 Diazepam 20 mg PO BID 03/30/16 Levomilnacipran HCl [Fetzima] 60 mg PO BID 03/30/16 Multivitamins [Multivit ([facility] Formul[facility])] 1 tab PO HS 03/30/16 Pantoprazole Sodium [Protonix] 40 mg PO Q2D 03/30/16 Potassium Citrate [Potassium Citrate ER] 1,080 mg PO HS 03/30/16 Topiramate 50 mg PO DAILY 03/30/16 Topiramate 100 mg PO HS 03/30/16 Ziprasidone [Geodon -] 80 mg PO BID 03/30/16 Bupropion HCl [Wellbutrin Xl -] 450 mg PO DAILY 04/18/16 Loratadine [Claritin] 10 mg PO DAILY 09/26/16 Family Disease History - Family Disease History Family History: Unremarkable Review of Systems - Review of Systems Constitutional: reports: No Symptoms Eyes: reports: No Symptoms HENT: reports: No Symptoms Neck: reports: No Symptoms Cardiovascular: reports: No Symptoms Respiratory: reports: No Symptoms Gastrointestinal: reports: No Symptoms Genitourinary: reports: No Symptoms Musculoskeletal: reports: No Symptoms Integumentary: reports: No Symptoms Neurological: reports: No Symptoms Endocrine: reports: No Symptoms Hematology/Lymphatic: reports: No Symptoms Psychiatric: reports: No Symptoms Physical Examination Constitutional: Yes: Well Nourished, No Distress, Calm Eyes: Yes: WNL, Conjunctiva Clear, EOM Intact HENT: Yes: WNL, Atraumatic, Normocephalic Neck: Yes: WNL, Supple, Trachea Midline Cardiovascular: Yes: WNL, Regular Rate and Rhythm, S1, S2 Respiratory: Yes: WNL, Regular, CTA Bilaterally Gastrointestinal: Yes: WNL, Normal Bowel Sounds, Soft ...Rectal Exam: Yes: Deferred Renal/: Yes: WNL Breast(s): Yes: WNL Musculoskeletal: Yes: WNL Extremities: Yes: WNL Edema: No Peripheral Pulses WNL: Yes Peripheral Pulses: Left Radial: 4+, Right Radial: 4+, Left Doralis Pedis: 3+, Right Dorsalis Pedis: 3+, Left Femoral: 3+, Right Femoral: 3+ Integumentary: Yes: WNL Neurological: Yes: WNL, Alert, Oriented ...Motor Strength: WNL Psychiatric: Yes: WNL, Alert, Oriented Labs: CBC WBC 6.7 K/mm3 (4.0-10.8) 10/10/16 07:18 RBC 4.25 M/mm3 (3.60-5.2) 10/10/16 07:18 Hgb 14.4 GM/dl (10.7-15.3) 10/10/16 07:18 Hct 41.9 % (32.4-45.2) 10/10/16 07:18 MCV 98.6 fl (80-96) H 10/10/16 07:18 MCH 34.0 pg (25.7-33.7) H 10/10/16 07:18 MCHC 34.4 g/dl (32.0-36.0) 10/10/16 07:18 RDW 12.4 % (11.6-15.6) 10/10/16 07:18 Plt Count 265 K/MM3 (134-434) 10/10/16 07:18 MPV 7.3 fl (7.5-11.1) L D 10/10/16 07:18 Neutrophils % 66.7 % (42.8-82.8) 10/10/16 07:18 Lymphocytes % 22.9 % (8-40) D 10/10/16 07:18 Monocytes % 7.9 % (3.8-10.2) 10/10/16 07:18 Eosinophils % 2.1 % (0-4.5) 10/10/16 07:18 Basophils % 0.4 % (0-2.0) 10/10/16 07:18 CMP Sodium 135 mmol/L (136-145) L 10/10/16 07:18 Potassium 4.3 mmol/L (3.5-5.1) 10/10/16 07:18 Chloride 105 mmol/L (98-107) 10/10/16 07:18 Carbon Dioxide 26 mmol/L (22-28) 10/10/16 07:18 Anion Gap 4 (8-16) L 10/10/16 07:18 BUN 40 mg/dl (7-18) H D 10/10/16 07:18 Creatinine 1.2 mg/dl (0.6-1.3) 10/10/16 07:18 Creat Clearance w eGFR 45.98 (>60) 10/10/16 07:18 Random Glucose 95 mg/dl (74-106) 10/10/16 07:18 Calcium 9.9 mg/dl (8.4-10.2) 10/10/16 07:18 AST 78 U/L (10-42) H D 10/10/16 07:18 ALT 144 U/L (10-40) H D 10/10/16 07:18 Alkaline Phosphatase 66 U/L (32-92) D 10/10/16 07:18 Total Protein 6.4 g/dl (6.4-8.3) 10/10/16 07:18 Albumin 4.4 g/dl (3.5-5.0) 10/10/16 07:18 Imaging - Results EKG: Image Reviewed, Other (nsr no ischemic changes) Problem List - Problems (1) Depression Code(s): F32.9 - MAJOR DEPRESSIVE DISORDER, SINGLE EPISODE, UNSPECIFIED Qualifiers: Depression Type: major depressive disorder (2) Colitis Code(s): K52.9 - NONINFECTIVE GASTROENTERITIS AND COLITIS, UNSPECIFIED Assessment/Plan patient is a 61 y/o female that presents for ect, pt has received ect in the past and denies any past adverse reaction to anesthesia lab and ekg reviewed pt is low risk for procedure.
[2016-10-10 07:32] VITALS: BMI 17.0
[2016-10-10] MEDS ORDERED: KETAMINE HCL 500 MG/10 ML VIAL ONE (08:25)
[2016-10-10 08:38] LABS: BASOPHIL 0.4 % (0-2.0); EOSINOPHIL 2.1 % (0-4.5); MCHC 34.4 g/dl (32.0-36.0); MEAN CELL VOLUME 98.6 fl (80-96); MEAN PLT VOLUME 7.3 fl (7.5-11.1); NEUTROPHILS 66.7 % (42.8-82.8); PLATELET COUNT 265 K/MM3 (134-434); RDW 12.4 % (11.6-15.6); WHITE BLOOD COUNT 6.7 K/mm3 (4.0-10.8)
[2016-10-10 09:13] LABS: ALBUMIN 4.4 g/dl (3.5-5.0); ALK PHOS 66 U/L (32-92); ANION GAP 4 (8-16); CALCIUM 9.9 mg/dl (8.4-10.2); CO2 26 mmol/L (22-28); CREATININE 1.2 mg/dl (0.6-1.3); GLUCOSE,RANDOM 95 mg/dl (74-106); SGOT/AST 78 U/L (10-42); SGPT/ALT 144 U/L (10-40); TOT PROT 6.4 g/dl (6.4-8.3)
[2016-10-10 09:27] LABS: BILIRUBIN,TOTAL 0.4 mg/dl (0.2-1.0)
[2016-10-10 09:48] VITALS: TEMP 97.6
[2016-10-10 09:50] VITALS: BP 110/77; PULSE 77
--- NOTE | 2016-10-10 18:21 | EKG ---
Test Reason : Blood Pressure : / mmHG Vent. Rate : 081 BPM Atrial Rate : 081 BPM P-R Int : 156 ms QRS Dur : 066 ms QT Int : 370 ms P-R-T Axes : 081 087 084 degrees QTc Int : 429 ms POOR DATA QUALITY, INTERPRETATION MAY BE ADVERSELY AFFECTED NORMAL SINUS RHYTHM SEPTAL INFARCT , AGE UNDETERMINED NO PREVIOUS ECGS AVAILABLE Confirmed by MD PEREA MARJORY ([id number]) on 10/10/2016 6:20:50 PM Referred By: Kieran Machuca Confirmed By:DULCE MARIA PEREA MD
== END 2016-10-10 10:00 | disposition home or self-care (01) ==
LOC: FECT 05:40
PROVIDERS: ATTEND Psychiatry & Neurology Psychiatry
PROC: GZB4ZZZ Other Electroconvulsive Therapy (ICD-10-PCS; principal; 2016-10-10 07:00)
DX: F33.2 Major depressive disorder, recurrent severe without psychotic features (principal)
CPT/HCPCS: 36415; 80053; 85025; 90870; 93005; 94760

== ENCOUNTER 2016-10-24 05:39 | Day surgery (SDC) | payer OTHER ==
[2016-10-24 07:12] VITALS: BMI 16.7
[2016-10-24] MEDS ORDERED: KETAMINE HCL 500 MG/10 ML VIAL ONE (07:32)
[2016-10-24] MEDS ORDERED: LACTATED RINGERS SOLUTION 1,000 ML IV SCH (07:45)
[2016-10-24] MEDS ORDERED: oxyCODONE HCL 5 MG TABLET PO PRN (08:42)
[2016-10-24] MEDS ORDERED: ONDANSETRON 4 MG/2 ML VIAL IVPUSH PRN (08:42)
[2016-10-24 09:28] VITALS: BP 110/71; PULSE 87; TEMP 97.4
== END 2016-10-24 09:30 | disposition home or self-care (01) ==
LOC: FECT 05:39
PROVIDERS: ATTEND Psychiatry & Neurology Psychiatry
PROC: GZB4ZZZ Other Electroconvulsive Therapy (ICD-10-PCS; principal; 2016-10-24 07:15)
DX: F33.2 Major depressive disorder, recurrent severe without psychotic features (principal)
CPT/HCPCS: 90870; 94760

== ENCOUNTER 2016-11-07 05:40 | Day surgery (SDC) | payer OTHER ==
[2016-11-02 07:50] VITALS: BMI 16.2
[2016-11-07 07:26] VITALS: TEMP 97.8
[2016-11-07] MEDS ORDERED: KETAMINE HCL 500 MG/10 ML VIAL ONE (08:08)
[2016-11-07] MEDS ORDERED: ONDANSETRON 4 MG/2 ML VIAL IVPUSH PRN (08:59)
[2016-11-07] MEDS ORDERED: ONDANSETRON *ODT* 4 MG TABLET ONE (09:47)
[2016-11-07 10:26] VITALS: BP 114/76; PULSE 84
== END 2016-11-07 10:20 | disposition home or self-care (01) ==
LOC: FECT 05:40
PROVIDERS: ATTEND Psychiatry & Neurology Psychiatry
PROC: GZB4ZZZ Other Electroconvulsive Therapy (ICD-10-PCS; principal; 2016-11-07 07:30)
DX: F33.2 Major depressive disorder, recurrent severe without psychotic features (principal)
CPT/HCPCS: 90870; 94760

== ENCOUNTER 2016-11-21 05:44 | Day surgery (SDC) | payer OTHER ==
--- NOTE | 2016-11-21 07:02 | CONSULT ---
Consultation: REQUESTING PROVIDER: Judith CONSULT REQUEST: We have been asked to medically evaluate this patient for medical clearance for electroconvulsive therapy. HISTORY OF PRESENT ILLNESS: This is a 61 yo woman with PMH of colitis, MDD, anxiety and ETOH abuse who presents /today for ECT treatment. Her last ECT treatment was 11/07/16. Pt states she has been feeling well and denies recent hospitalizations. She denies suicidal ideation, homicidal ideation, paranoid ideation, auditory, visual or tactile hallucinations since last treatment. Home Medications Medication Instructions Recorded Diazepam 10 mg PO HS 03/30/16 Diazepam 20 mg PO BID 03/30/16 Levomilnacipran HCl [Fetzima] 60 mg PO BID 03/30/16 Multivitamins [Multivit ([facility] 1 tab PO HS 03/30/16 Formulary)] Pantoprazole Sodium [Protonix] 40 mg PO Q2D 03/30/16 Potassium Citrate [Potassium 1,080 mg PO HS 03/30/16 Citrate ER] Topiramate 50 mg PO DAILY 03/30/16 Topiramate 100 mg PO HS 03/30/16 Ziprasidone [Geodon -] 80 mg PO BID 03/30/16 Bupropion HCl [Wellbutrin Xl -] 450 mg PO DAILY 04/18/16 REVIEW OF SYSTEMS: CONSTITUTIONAL: Absent: fever, chills, diaphoresis, generalized weakness, malaise, loss of appetite, weight change HEENT: Absent: rhinorrhea, nasal congestion, throat pain, throat swelling, difficulty swallowing, mouth swelling, ear pain, eye pain, visual changes CARDIOVASCULAR: Absent: chest pain, syncope, palpitations, irregular heart rate, lightheadedness , peripheral edema RESPIRATORY: Absent: cough, shortness of breath, dyspnea with exertion, orthopnea, wheezing, stridor, hemoptysis GASTROINTESTINAL: Absent: abdominal pain, abdominal distension, nausea, vomiting, diarrhea, constipation, melena, hematochezia GENITOURINARY: Absent: dysuria, frequency, urgency, hesitancy, hematuria, flank pain, genital pain MUSCULOSKELETAL: Absent: myalgia, arthralgia, joint swelling, back pain, neck pain SKIN: Absent: rash, itching, pallor HEMATOLOGIC/IMMUNOLOGIC: Absent: easy bleeding, easy bruising, lymphadenopathy, frequent infections ENDOCRINE: Absent: unexplained weight gain, unexplained weight loss, heat intolerance, cold intolerance NEUROLOGIC: Absent: headache, focal weakness or paresthesias, dizziness, unsteady gait, seizure, mental status changes, bladder or bowel incontinence PSYCHIATRIC: Absent: anxiety, depression, suicidal or homicidal ideation, hallucinations. PHYSICAL EXAMINATION Vital Signs Temperature Pulse Rate 83 11/21/16 06:59 Respiratory Rate 16 11/21/16 06:59 Blood Pressure 100/72 11/21/16 06:59 O2 Sat by Pulse Oximetry (%) 95 11/21/16 06:59 GENERAL: Awake, alert, and fully oriented, in no acute distress. HEAD: Normal with no signs of trauma. EYES: Pupils equal, round and reactive to light, extraocular movements intact, sclera anicteric, conjunctiva clear. No lid lag. EARS, NOSE, THROAT: Ears normal, nares patent, oropharynx clear without exudates. Moist mucous membranes. NECK: Normal range of motion, supple without lymphadenopathy, JVD, or masses. LUNGS: Breath sounds equal, clear to auscultation bilaterally. No wheezes, and no crackles. No accessory muscle use. HEART: Regular rate and rhythm, normal S1 and S2 without murmur, rub or gallop. ABDOMEN: Soft, nontender, not distended, normoactive bowel sounds, no guarding, no rebound, no masses. No hepatomegaly or splenomegaly. MUSCULOSKELETAL: Normal range of motion at all joints. No bony deformities or tenderness. No CVA tenderness. UPPER EXTREMITIES: 2+ pulses, warm, well-perfused. No cyanosis. No clubbing. Cap refill <2 seconds. No peripheral edema. LOWER EXTREMITIES: 2+ pulses, warm, well-perfused. No calf tenderness. No peripheral edema. NEUROLOGICAL: Cranial nerves II-XII intact. Normal speech. Normal gait. PSYCHIATRIC: Cooperative. Good eye contact. Appropriate mood and affect. SKIN: Warm, dry, normal turgor, no rashes or lesions noted. EKG- SR without ectopy. ASSESSMENT/PLAN: A: 61 yo woman with no contraindications for ECT who has tolerated procedure is the past and has never had adverse reaction to anesthesia. Medical stable for treatment. Dispo: We will continue to follow the patient. Thank you for this consultative opportunity. Visit type - Emergency Visit Emergency Visit: No - New Patient This patient is new to me today: Yes Date on this admission: 11/21/16 - Critical Care Critical Care patient: No
[2016-11-21 07:20] VITALS: TEMP 97.5
[2016-11-21] MEDS ORDERED: KETAMINE HCL 500 MG/10 ML VIAL ONE (07:46)
[2016-11-21 08:49] VITALS: BP 121/78; PULSE 78
== END 2016-11-21 10:05 | disposition home or self-care (01) ==
LOC: FECT 05:44
PROVIDERS: ATTEND Psychiatry & Neurology Psychiatry
PROC: GZB4ZZZ Other Electroconvulsive Therapy (ICD-10-PCS; principal; 2016-11-21 08:00)
DX: F33.2 Major depressive disorder, recurrent severe without psychotic features (principal)
CPT/HCPCS: 90870; 94760

== ENCOUNTER 2016-12-02 05:43 | Day surgery (SDC) | payer OTHER ==
[2016-12-02 08:14] VITALS: BMI 16.7
[2016-12-02] MEDS ORDERED: KETAMINE HCL 500 MG/10 ML VIAL ONE (08:45)
[2016-12-02 10:16] VITALS: TEMP 97.7
[2016-12-02 10:59] VITALS: BP 101/81; PULSE 88
== END 2016-12-02 11:05 | disposition home or self-care (01) ==
LOC: FECT 05:43
PROVIDERS: ATTEND Psychiatry & Neurology Psychiatry
PROC: GZB4ZZZ Other Electroconvulsive Therapy (ICD-10-PCS; principal; 2016-12-02 07:30)
DX: F33.2 Major depressive disorder, recurrent severe without psychotic features (principal)
CPT/HCPCS: 90870; 94760

== ENCOUNTER 2016-12-19 05:38 | Day surgery (SDC) | payer OTHER ==
[2016-12-13 07:52] VITALS: BMI 16.7
[2016-12-19] MEDS ORDERED: LACTATED RINGERS SOLUTION 1,000 ML IV SCH (08:00)
[2016-12-19] MEDS ORDERED: KETAMINE HCL 500 MG/10 ML VIAL ONE (08:39)
[2016-12-19 10:35] VITALS: TEMP 97.8
[2016-12-19 10:37] VITALS: BP 111/77; PULSE 69
== END 2016-12-19 11:00 | disposition home or self-care (01) ==
LOC: FECT 05:38
PROVIDERS: ATTEND Psychiatry & Neurology Psychiatry
PROC: GZB4ZZZ Other Electroconvulsive Therapy (ICD-10-PCS; principal; 2016-12-19 07:30)
DX: F33.2 Major depressive disorder, recurrent severe without psychotic features (principal)
CPT/HCPCS: 90870; 94760

== ENCOUNTER 2017-01-02 05:37 | Day surgery (SDC) | payer OTHER ==
[2017-01-02 07:16] VITALS: TEMP 97.5; BMI 16.2
--- NOTE | 2017-01-02 07:35 | HP ---
CHIEF COMPLAINT: PCP: HISTORY OF PRESENT ILLNESS: 61 year-old woman with a PMH of colitis, MDD, anxiety and ETOH abuse who presents today for ECT treatment. Her last ECT treatment was on 12/19/16. HOME MEDICATIONS: Home Medications Medication Instructions Recorded Diazepam 10 mg PO HS 03/30/16 Diazepam 20 mg PO BID 03/30/16 Multivitamins [Multivit ([facility] 1 tab PO HS 03/30/16 Formulary)] Pantoprazole Sodium [Protonix] 40 mg PO Q2D 03/30/16 Potassium Citrate [Potassium 1,080 mg PO HS 03/30/16 Citrate ER] Topiramate 50 mg PO DAILY 03/30/16 Topiramate 100 mg PO HS 03/30/16 Ziprasidone [Geodon -] 80 mg PO BID 03/30/16 Bupropion HCl [Wellbutrin Xl -] 450 mg PO DAILY 04/18/16 Vortioxetine Hydrobromide 20 mg PO DAILY 12/02/16 [Trintellix] REVIEW OF SYSTEMS CONSTITUTIONAL: Absent: fever, chills, diaphoresis, generalized weakness, malaise, loss of appetite, weight change HEENT: Absent: rhinorrhea, nasal congestion, throat pain, throat swelling, difficulty swallowing, mouth swelling, ear pain, eye pain, visual changes CARDIOVASCULAR: Absent: chest pain, syncope, palpitations, irregular heart rate, lightheadedness , peripheral edema RESPIRATORY: Absent: cough, shortness of breath, dyspnea with exertion, orthopnea, wheezing, stridor, hemoptysis GASTROINTESTINAL: Absent: abdominal pain, abdominal distension, nausea, vomiting, diarrhea, constipation, melena, hematochezia GENITOURINARY: Absent: dysuria, frequency, urgency, hesitancy, hematuria, flank pain, genital pain MUSCULOSKELETAL: Absent: myalgia, arthralgia, joint swelling, back pain, neck pain SKIN: Absent: rash, itching, pallor HEMATOLOGIC/IMMUNOLOGIC: Absent: easy bleeding, easy bruising, lymphadenopathy, frequent infections ENDOCRINE: Absent: unexplained weight gain, unexplained weight loss, heat intolerance, cold intolerance NEUROLOGIC: Absent: headache, focal weakness or paresthesias, dizziness, unsteady gait, seizure, mental status changes, bladder or bowel incontinence PSYCHIATRIC: Absent: anxiety, depression, suicidal or homicidal ideation, hallucinations. PHYSICAL EXAMINATION Vital Signs - 24 hr 10/02/17 06:56 Temperature 97.5 F L Pulse Rate 81 Respiratory 18 Rate Blood Pressure 90/65 O2 Sat by Pulse 100 Oximetry (%) GENERAL: Awake, alert, and fully oriented, in no acute distress. HEAD: Normal with no signs of trauma. EYES: Pupils equal, round and reactive to light, extraocular movements intact, sclera anicteric, conjunctiva clear. No lid lag. EARS, NOSE, THROAT: Ears normal, nares patent, oropharynx clear without exudates. Moist mucous membranes. NECK: Normal range of motion, supple without lymphadenopathy, JVD, or masses. LUNGS: Breath sounds equal, clear to auscultation bilaterally. No wheezes, and no crackles. No accessory muscle use. HEART: Regular rate and rhythm, normal S1 and S2 without murmur, rub or gallop. ABDOMEN: Soft, nontender, not distended, normoactive bowel sounds, no guarding, no rebound, no masses. No hepatomegaly or splenomegaly. MUSCULOSKELETAL: Normal range of motion at all joints. No bony deformities or tenderness. No CVA tenderness. UPPER EXTREMITIES: 2+ pulses, warm, well-perfused. No cyanosis. No clubbing. No peripheral edema. LOWER EXTREMITIES: 2+ pulses, warm, well-perfused. No calf tenderness. No peripheral edema. NEUROLOGICAL: Cranial nerves II-XII intact. Normal speech. Normal gait. PSYCHIATRIC: Cooperative. Good eye contact. Appropriate mood and affect. SKIN: Warm, dry, normal turgor, no rashes or lesions noted, normal capillary refill. ASSESSMENT/PLAN: 61 year-old female with a PMH significant for colitis, MDD, anxiety and ETOH abuse who presents today for ECT treatment. Her last ECT treatment was on . She has tolerated the procedure well. She is medically stable for treatment. Visit type - Emergency Visit Emergency Visit: No - New Patient This patient is new to me today: Yes Date on this admission: 01/02/17 - Critical Care Critical Care patient: No
[2017-01-02] MEDS ORDERED: KETAMINE HCL 500 MG/10 ML VIAL ONE (07:54)
[2017-01-02 09:21] VITALS: PULSE 80
[2017-01-02 10:25] VITALS: BP 96/67
== END 2017-01-02 10:10 | disposition home or self-care (01) ==
LOC: FECT 05:37
PROVIDERS: ATTEND Psychiatry & Neurology Psychiatry
PROC: GZB4ZZZ Other Electroconvulsive Therapy (ICD-10-PCS; principal; 2017-01-02 07:00)
DX: F33.2 Major depressive disorder, recurrent severe without psychotic features (principal)
CPT/HCPCS: 90870; 94760

== ENCOUNTER 2017-01-16 05:41 | Day surgery (SDC) | payer OTHER ==
[2017-01-16] MEDS ORDERED: KETAMINE HCL 500 MG/10 ML VIAL ONE (08:18)
[2017-01-16 09:56] VITALS: TEMP 97.6
[2017-01-16 11:10] VITALS: BP 114/76; PULSE 78
== END 2017-01-16 10:45 | disposition home or self-care (01) ==
LOC: FECT 05:41
PROVIDERS: ATTEND Psychiatry & Neurology Psychiatry
PROC: GZB4ZZZ Other Electroconvulsive Therapy (ICD-10-PCS; principal; 2017-01-16 07:15)
DX: F33.2 Major depressive disorder, recurrent severe without psychotic features (principal)
CPT/HCPCS: 90870; 94760

== ENCOUNTER 2017-01-30 05:41 | Day surgery (SDC) | payer OTHER ==
[2017-01-30 06:56] VITALS: TEMP 97.5; BMI 16.4
[2017-01-30] MEDS ORDERED: KETAMINE HCL 500 MG/10 ML VIAL ONE (07:34)
[2017-01-30 08:51] VITALS: PULSE 73
[2017-01-30 10:06] VITALS: BP 104/70
== END 2017-01-30 09:45 | disposition home or self-care (01) ==
LOC: FECT 05:41
PROVIDERS: ATTEND Psychiatry & Neurology Psychiatry
PROC: GZB4ZZZ Other Electroconvulsive Therapy (ICD-10-PCS; principal; 2017-01-30 07:00)
DX: F33.2 Major depressive disorder, recurrent severe without psychotic features (principal)
CPT/HCPCS: 90870; 94760

== ENCOUNTER 2017-02-14 05:37 | Day surgery (SDC) | payer OTHER ==
[2017-02-08 17:54] VITALS: BMI 16.4
--- NOTE | 2017-02-14 07:16 | HP ---
Admitting History and Physical - Admission History of Present Illness: patient is a 61 y/o female with a past medical history of anxiety, depression, collits, mdd, and etoh abuse. Patient presents for ect, her last ect was . Patient reports feeling well, she denies any recent illnesses or hospitalizations within the past month. She denies any recent changes in medications. patient denies any suicidal or homicidal ideation, visual or auditory hallucinations. 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) History of Substance Use: reports: None - Social History Usual Living Arrangement: Yes: Other (with son) ADL: Independent History of Recent Travel: No Home Medications - Allergies Allergies/Adverse Reactions: Allergies Allergy/AdvReac Type Severity Reaction Status Date / Time No Known Drug Allergies Allergy Verified 12/19/16 07:44 - Home Medications Home Medications: Ambulatory Orders Diazepam 10 mg PO HS 03/30/16 Diazepam 20 mg PO BID 03/30/16 Multivitamins [Multivit ([facility] Formulary)] 1 tab PO HS 03/30/16 Pantoprazole Sodium [Protonix] 40 mg PO Q2D 03/30/16 Potassium Citrate [Potassium Citrate ER] 1,080 mg PO HS 03/30/16 Topiramate 50 mg PO DAILY 03/30/16 Topiramate 100 mg PO HS 03/30/16 Ziprasidone [Geodon -] 80 mg PO BID 03/30/16 Bupropion HCl [Wellbutrin Xl -] 450 mg PO DAILY 04/18/16 Vortioxetine Hydrobromide [Trintellix] 20 mg PO DAILY 12/02/16 Loratadine [Claritin] 10 mg PO DAILY 01/30/17 Family Disease History - Family Disease History Family History: Denies Review of Systems - Review of Systems Constitutional: reports: No Symptoms Eyes: reports: No Symptoms HENT: reports: No Symptoms Neck: reports: No Symptoms Cardiovascular: reports: No Symptoms Respiratory: reports: No Symptoms Gastrointestinal: reports: No Symptoms Genitourinary: reports: No Symptoms Musculoskeletal: reports: No Symptoms Integumentary: reports: No Symptoms Neurological: reports: No Symptoms Endocrine: reports: No Symptoms Hematology/Lymphatic: reports: No Symptoms Psychiatric: reports: No Symptoms Physical Examination Constitutional: Yes: Well Nourished, No Distress, Calm Eyes: Yes: WNL, Conjunctiva Clear, EOM Intact HENT: Yes: WNL, Atraumatic, Normocephalic Neck: Yes: WNL, Supple, Trachea Midline Cardiovascular: Yes: WNL, Regular Rate and Rhythm, S1, S2 Respiratory: Yes: WNL, Regular, CTA Bilaterally Gastrointestinal: Yes: WNL, Normal Bowel Sounds, Soft ...Rectal Exam: Yes: Deferred Renal/: Yes: WNL Breast(s): Yes: WNL Musculoskeletal: Yes: WNL Extremities: Yes: WNL Edema: No Peripheral Pulses WNL: Yes Peripheral Pulses: Left Radial: 4+, Right Radial: 4+, Left Doralis Pedis: 3+, Right Dorsalis Pedis: 3+, Left Femoral: 3+, Right Femoral: 3+ Integumentary: Yes: WNL Neurological: Yes: WNL, Alert, Oriented ...Motor Strength: WNL Psychiatric: Yes: WNL, Alert, Oriented Labs: labs reviewed 10/17 Imaging - Results EKG: Other (nsr) Assessment/Plan patient is a 61 y/o female that presents for ect, labs and ekg reviewed patient is medically optimized for procedure informed consent, risks/benefits to be obtained by Dr Machuca
[2017-02-14] MEDS ORDERED: KETAMINE HCL 500 MG/10 ML VIAL ONE (08:36)
[2017-02-14 09:45] VITALS: TEMP 97.8
[2017-02-14 09:55] VITALS: BP 101/74; PULSE 79
== END 2017-02-14 10:15 | disposition home or self-care (01) ==
LOC: FECT 05:37
PROVIDERS: ATTEND Psychiatry & Neurology Psychiatry
PROC: GZB4ZZZ Other Electroconvulsive Therapy (ICD-10-PCS; principal; 2017-02-14 07:15)
DX: F33.2 Major depressive disorder, recurrent severe without psychotic features (principal)
CPT/HCPCS: 90870; 94760

== ENCOUNTER 2017-02-28 05:40 | Day surgery (SDC) | payer OTHER ==
[2017-02-28 07:48] VITALS: BMI 16.7
[2017-02-28] MEDS ORDERED: KETAMINE HCL 500 MG/10 ML VIAL ONE (08:48)
[2017-02-28 10:46] VITALS: TEMP 98
[2017-02-28 11:31] VITALS: BP 107/68; PULSE 80
== END 2017-02-28 11:25 | disposition home or self-care (01) ==
LOC: FECT 05:40
PROVIDERS: ATTEND Psychiatry & Neurology Psychiatry
PROC: GZB4ZZZ Other Electroconvulsive Therapy (ICD-10-PCS; principal; 2017-02-28 07:00)
DX: F33.2 Major depressive disorder, recurrent severe without psychotic features (principal)
CPT/HCPCS: 90870; 94760

== ENCOUNTER 2017-03-13 06:28 | Day surgery (SDC) | payer OTHER ==
[2017-03-13 07:34] VITALS: BMI 16.7
[2017-03-13] MEDS ORDERED: KETAMINE HCL 500 MG/10 ML VIAL ONE (08:17)
[2017-03-13 09:35] VITALS: TEMP 97.7
[2017-03-13] MEDS ORDERED: ONDANSETRON 4 MG/2 ML VIAL IVPUSH PRN (09:45)
[2017-03-13 09:49] VITALS: BP 108/68; PULSE 74
== END 2017-03-13 10:15 | disposition home or self-care (01) ==
LOC: FECT 06:28
PROVIDERS: ATTEND Psychiatry & Neurology Psychiatry
PROC: GZB4ZZZ Other Electroconvulsive Therapy (ICD-10-PCS; principal; 2017-03-13 07:30)
DX: F33.2 Major depressive disorder, recurrent severe without psychotic features (principal)
CPT/HCPCS: 90870; 94760

== ENCOUNTER 2017-03-22 06:55 | Day surgery (SDC) | payer OTHER ==
--- NOTE | 2017-03-22 06:59 | HP ---
Admitting History and Physical - Admission History of Present Illness: patient is a 61 y/o female with a past medical history of anxiety, depression, colitis, and etoh abuse. Patient presents for ect, her last ect was 03/13/17. patient reports feeling well, she reports an improvement in depressive symptom since starting ECT. She denies any recent changes to medications. She denies any recent illnesses or hospitalizations. patient denies any suicidal or homicidal ideation, visual or auditory hallucinations. 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) History of Substance Use: reports: None - Social History Usual Living Arrangement: Yes: With Child ADL: Independent History of Recent Travel: No Home Medications - Allergies Allergies/Adverse Reactions: Allergies Allergy/AdvReac Type Severity Reaction Status Date / Time No Known Drug Allergies Allergy Verified 12/19/16 07:44 - Home Medications Home Medications: Ambulatory Orders Diazepam 10 mg PO HS 03/30/16 Diazepam 20 mg PO BID 03/30/16 Multivitamins [Multivit ([facility] Formulary)] 1 tab PO HS 03/30/16 Pantoprazole Sodium [Protonix] 40 mg PO Q2D 03/30/16 Potassium Citrate [Potassium Citrate ER] 1,080 mg PO HS 03/30/16 Topiramate 50 mg PO DAILY 03/30/16 Topiramate 100 mg PO HS 03/30/16 Ziprasidone [Geodon -] 80 mg PO BID 03/30/16 Bupropion HCl [Wellbutrin Xl -] 450 mg PO DAILY 04/18/16 Vortioxetine Hydrobromide [Trintellix] 20 mg PO HS 12/02/16 Loratadine [Claritin] 10 mg PO DAILY 01/30/17 Family Disease History - Family Disease History Family History: Denies Review of Systems - Review of Systems Constitutional: reports: No Symptoms Eyes: reports: No Symptoms HENT: reports: No Symptoms Neck: reports: No Symptoms Cardiovascular: reports: No Symptoms Respiratory: reports: No Symptoms Gastrointestinal: reports: No Symptoms Genitourinary: reports: No Symptoms Musculoskeletal: reports: No Symptoms Integumentary: reports: No Symptoms Neurological: reports: No Symptoms Endocrine: reports: No Symptoms Hematology/Lymphatic: reports: No Symptoms Psychiatric: reports: No Symptoms Physical Examination Constitutional: Yes: Well Nourished, No Distress, Calm, Thin Eyes: Yes: WNL, Conjunctiva Clear, EOM Intact HENT: Yes: WNL, Atraumatic, Normocephalic Neck: Yes: WNL, Supple, Trachea Midline Cardiovascular: Yes: WNL, Regular Rate and Rhythm, S1, S2 Respiratory: Yes: WNL, Regular, CTA Bilaterally Gastrointestinal: Yes: WNL, Normal Bowel Sounds, Soft ...Rectal Exam: Yes: Deferred Renal/: Yes: WNL Breast(s): Yes: WNL Musculoskeletal: Yes: WNL Extremities: Yes: WNL Edema: No Peripheral Pulses WNL: Yes Peripheral Pulses: Left Radial: 4+, Right Radial: 4+, Left Doralis Pedis: 3+, Right Dorsalis Pedis: 3+, Left Femoral: 3+, Right Femoral: 3+ Integumentary: Yes: WNL Neurological: Yes: WNL, Alert, Oriented ...Motor Strength: WNL Psychiatric: Yes: WNL, Alert, Oriented Labs: reviewed 10/17 Imaging - Results EKG: Report Reviewed, Image Reviewed, Other (nsr) Assessment/Plan patient is a 61 y/o female that presents for ect, labs and ekg reviewed, patient is medically optimized for procedure informed consent, risks/benefits to be obtained by Dr Machuca
[2017-03-22 07:18] VITALS: BMI 16.2
[2017-03-22] MEDS ORDERED: KETAMINE HCL 500 MG/10 ML VIAL ONE (07:30)
[2017-03-22] MEDS ORDERED: LACTATED RINGERS SOLUTION 1,000 ML IV SCH (08:00)
[2017-03-22 08:37] VITALS: TEMP 97.4
[2017-03-22 10:00] VITALS: BP 101/64; PULSE 77
== END 2017-03-22 09:40 | disposition home or self-care (01) ==
LOC: FECT 06:55
PROVIDERS: ATTEND Psychiatry & Neurology Psychiatry
PROC: GZB4ZZZ Other Electroconvulsive Therapy (ICD-10-PCS; principal; 2017-03-22 07:45)
DX: F33.2 Major depressive disorder, recurrent severe without psychotic features (principal)
CPT/HCPCS: 90870; 94760

== ENCOUNTER 2017-04-12 05:45 | Day surgery (SDC) | payer OTHER ==
[2017-04-12 07:09] VITALS: BMI 16.2
[2017-04-12] MEDS ORDERED: KETAMINE HCL 500 MG/10 ML VIAL ONE (07:27)
[2017-04-12 08:43] VITALS: TEMP 97.6
[2017-04-12 09:16] VITALS: BP 120/70; PULSE 70
== END 2017-04-12 09:50 | disposition home or self-care (01) ==
LOC: FECT 05:45
PROVIDERS: ATTEND Psychiatry & Neurology Psychiatry
PROC: GZB4ZZZ Other Electroconvulsive Therapy (ICD-10-PCS; principal; 2017-04-12 08:00)
DX: F33.2 Major depressive disorder, recurrent severe without psychotic features (principal)
CPT/HCPCS: 90870; 94760

== ENCOUNTER 2017-04-24 05:44 | Day surgery (SDC) | payer OTHER ==
--- NOTE | 2017-04-24 07:15 | HP ---
Admitting History and Physical - Admission History of Present Illness: patient is s 61 y/o female with a past medical history of anxiety, depression, colitis, and etoh abuse. patient presents for ect, her last ect was 04/12/17. Patient reports no significant change in depressive symptoms since starting ect. She denies any changes in medications, recent illnesses or hospitalizations. Patient denies any suicidal or homicidal ideation, visual or auditory hallucinations. 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) History of Substance Use: reports: None - Social History Usual Living Arrangement: Yes: With Child ADL: Independent History of Recent Travel: No Home Medications - Allergies Allergies/Adverse Reactions: Allergies Allergy/AdvReac Type Severity Reaction Status Date / Time No Known Drug Allergies Allergy Verified 12/19/16 07:44 - Home Medications Home Medications: Ambulatory Orders Diazepam 10 mg PO HS 03/30/16 Diazepam 20 mg PO BID 03/30/16 Multivitamins [Multivit ([facility] Formulary)] 1 tab PO HS 03/30/16 Pantoprazole Sodium [Protonix] 40 mg PO Q2D 03/30/16 Potassium Citrate [Potassium Citrate ER] 1,080 mg PO HS 03/30/16 Topiramate 50 mg PO DAILY 03/30/16 Topiramate 100 mg PO HS 03/30/16 Ziprasidone [Geodon -] 80 mg PO BID 03/30/16 Bupropion HCl [Wellbutrin Xl -] 450 mg PO DAILY 04/18/16 Vortioxetine Hydrobromide [Trintellix] 20 mg PO HS 12/02/16 Loratadine [Claritin] 10 mg PO DAILY 01/30/17 Family Disease History - Family Disease History Family History: Denies Review of Systems - Review of Systems Constitutional: reports: No Symptoms Eyes: reports: No Symptoms HENT: reports: No Symptoms Neck: reports: No Symptoms Cardiovascular: reports: No Symptoms Respiratory: reports: No Symptoms Gastrointestinal: reports: No Symptoms Genitourinary: reports: No Symptoms Musculoskeletal: reports: No Symptoms Integumentary: reports: No Symptoms Neurological: reports: No Symptoms Endocrine: reports: No Symptoms Hematology/Lymphatic: reports: No Symptoms Psychiatric: reports: Depression Physical Examination Vital Signs: Vital Signs 04/24/17 07:37 Temperature 98.5 F Pulse Rate 72 Respiratory 18 Rate Blood Pressure 100/68 O2 Sat by Pulse 97 Oximetry (%) Constitutional: Yes: Well Nourished, No Distress, Calm, Cachectic, Thin Eyes: Yes: WNL, Conjunctiva Clear, EOM Intact HENT: Yes: WNL, Atraumatic, Normocephalic Neck: Yes: WNL, Supple, Trachea Midline Cardiovascular: Yes: WNL, Regular Rate and Rhythm, S1, S2 Respiratory: Yes: WNL, Regular, CTA Bilaterally Gastrointestinal: Yes: WNL, Normal Bowel Sounds, Soft ...Rectal Exam: Yes: Deferred Renal/: Yes: WNL Musculoskeletal: Yes: WNL Extremities: Yes: WNL Edema: No Peripheral Pulses WNL: Yes Peripheral Pulses: Left Radial: 4+, Right Radial: 4+, Left Doralis Pedis: 3+, Right Dorsalis Pedis: 3+, Left Femoral: 3+, Right Femoral: 3+ Integumentary: Yes: WNL Neurological: Yes: WNL, Alert, Oriented ...Motor Strength: WNL Psychiatric: Yes: WNL, Alert, Oriented Labs: CBC WBC 5.4 K/mm3 (4.0-10.8) 04/24/17 07:00 RBC 4.41 M/mm3 (3.60-5.2) 04/24/17 07:00 Hgb 14.5 GM/dl (10.7-15.3) 04/24/17 07:00 Hct 43.8 % (32.4-45.2) 04/24/17 07:00 MCV 99.4 fl (80-96) H 04/24/17 07:00 MCH 32.9 pg (25.7-33.7) 04/24/17 07:00 MCHC 33.1 g/dl (32.0-36.0) 04/24/17 07:00 RDW 12.1 % (11.6-15.6) 04/24/17 07:00 Plt Count 260 K/MM3 (134-434) 04/24/17 07:00 MPV 8.0 fl (7.5-11.1) 04/24/17 07:00
[2017-04-24 07:49] VITALS: BMI 16.4
[2017-04-24] MEDS ORDERED: KETAMINE HCL 500 MG/10 ML VIAL ONE (08:08)
[2017-04-24 08:17] LABS: HEMATOCRIT 43.8 % (32.4-45.2); HEMOGLOBIN 14.5 GM/dl (10.7-15.3); MCH 32.9 pg (25.7-33.7); MCHC 33.1 g/dl (32.0-36.0); MEAN CELL VOLUME 99.4 fl (80-96); PLATELET COUNT 260 K/MM3 (134-434); RBC 4.41 M/mm3 (3.60-5.2); RDW 12.1 % (11.6-15.6); WHITE BLOOD COUNT 5.4 K/mm3 (4.0-10.8)
[2017-04-24 08:47] LABS: ALBUMIN 4.2 g/dl (3.5-5.0); ALK PHOS 57 U/L (32-92); ANION GAP 8 (8-16); BLOOD UREA NITROGEN 21 mg/dl (7-18); CALCIUM 9.6 mg/dl (8.4-10.2); CHLORIDE 102 mmol/L (98-107); CO2 28 mmol/L (22-28); CREATININE 1.3 mg/dl (0.6-1.3); GLUCOSE,RANDOM 97 mg/dl (74-106); POTASSIUM 3.8 mmol/L (3.5-5.1); SGOT/AST 37 U/L (10-42); SGPT/ALT 50 U/L (10-40); SODIUM 138 mmol/L (136-145); TOT PROT 6.3 g/dl (6.4-8.3)
[2017-04-24 08:57] LABS: BILIRUBIN,TOTAL 0.3 mg/dl (0.2-1.0)
[2017-04-24 09:56] VITALS: TEMP 97.5
[2017-04-24 13:57] VITALS: BP 120/72; PULSE 76
--- NOTE | 2017-04-24 16:58 | EKG ---
Test Reason : Blood Pressure : / mmHG Vent. Rate : 077 BPM Atrial Rate : 077 BPM P-R Int : 162 ms QRS Dur : 078 ms QT Int : 382 ms P-R-T Axes : 078 082 083 degrees QTc Int : 432 ms NORMAL SINUS RHYTHM NORMAL ECG WHEN COMPARED WITH ECG OF 10-OCT-2016 07:38, NO SIGNIFICANT CHANGE WAS FOUND Confirmed by RISSA SIERRA MD ([id number]) on 04/24/2017 4:57:59 PM Referred By: Kieran Machuca Confirmed By:RISSA SIERRA MD
== END 2017-04-24 10:30 | disposition home or self-care (01) ==
LOC: FECT 05:44
PROVIDERS: ATTEND Psychiatry & Neurology Psychiatry
PROC: GZB4ZZZ Other Electroconvulsive Therapy (ICD-10-PCS; principal; 2017-04-24 07:15)
DX: F33.2 Major depressive disorder, recurrent severe without psychotic features (principal)
CPT/HCPCS: 36415; 80053; 85027; 90870; 93005; 94760

== ENCOUNTER 2017-05-08 05:46 | Day surgery (SDC) | payer OTHER ==
[2017-05-08 07:35] VITALS: BMI 16.2
[2017-05-08] MEDS ORDERED: ONDANSETRON 4 MG/2 ML VIAL IVPUSH PRN (08:04)
[2017-05-08] MEDS ORDERED: KETAMINE HCL 500 MG/10 ML VIAL ONE (08:04)
[2017-05-08] MEDS ORDERED: oxyCODONE HCL 5 MG TABLET PO PRN (08:04)
[2017-05-08] MEDS ORDERED: LACTATED RINGERS SOLUTION 1,000 ML IV SCH (08:15)
[2017-05-08 09:32] VITALS: PULSE 82; TEMP 98.6
[2017-05-08 10:50] VITALS: BP 112/74
== END 2017-05-08 10:52 | disposition home or self-care (01) ==
LOC: FECT 05:46
PROVIDERS: ATTEND Psychiatry & Neurology Psychiatry
PROC: GZB4ZZZ Other Electroconvulsive Therapy (ICD-10-PCS; principal; 2017-05-08 07:45)
DX: F33.2 Major depressive disorder, recurrent severe without psychotic features (principal)
CPT/HCPCS: 90870; 94760

== ENCOUNTER 2017-05-22 05:44 | Day surgery (SDC) | payer OTHER ==
[2017-05-22 07:48] VITALS: BMI 16.2
[2017-05-22] MEDS ORDERED: KETAMINE HCL 500 MG/10 ML VIAL ONE (08:35)
[2017-05-22] MEDS ORDERED: oxyCODONE HCL 5 MG TABLET PO PRN (09:50)
[2017-05-22] MEDS ORDERED: ONDANSETRON 4 MG/2 ML VIAL IVPUSH PRN (09:50)
[2017-05-22] MEDS ORDERED: LACTATED RINGERS SOLUTION 1,000 ML IV SCH (10:00)
[2017-05-22 11:34] VITALS: BP 103/74; PULSE 96; TEMP 97.8
== END 2017-05-22 11:34 | disposition home or self-care (01) ==
LOC: FECT 05:44
PROVIDERS: ATTEND Psychiatry & Neurology Psychiatry
PROC: GZB4ZZZ Other Electroconvulsive Therapy (ICD-10-PCS; principal; 2017-05-22 07:15)
DX: F33.2 Major depressive disorder, recurrent severe without psychotic features (principal)

== ENCOUNTER 2017-06-09 05:40 | Day surgery (SDC) | payer OTHER ==
[2017-06-06 14:29] VITALS: BMI 16.2
--- NOTE | 2017-06-09 07:52 | HP ---
Admitting History and Physical - Admission History of Present Illness: Patient is a 61 y/o female with a past medical history of anxiety, depression, colitis and etoh abuse. Patient presents for ect, her last ect was 06/05/17. Patient reports feeling well, she denies any recent illnesses or hosptializations. Patient denies any changes to medication. Patient denies any suicidal or homicidal ideation, visual or auditory hallucinations. 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) History of Substance Use: reports: None - Social History Usual Living Arrangement: Yes: With Child ADL: Independent History of Recent Travel: No Home Medications - Allergies Allergies/Adverse Reactions: Allergies Allergy/AdvReac Type Severity Reaction Status Date / Time No Known Drug Allergies Allergy Verified 12/19/16 07:44 - Home Medications Home Medications: Ambulatory Orders Diazepam 10 mg PO HS 03/30/16 Diazepam 20 mg PO BID 03/30/16 Multivitamins [Multivit ([facility] Formulary)] 1 tab PO HS 03/30/16 Pantoprazole Sodium [Protonix] 40 mg PO Q2D 03/30/16 Potassium Citrate [Potassium Citrate ER] 1,080 mg PO HS 03/30/16 Topiramate 50 mg PO DAILY 03/30/16 Topiramate 100 mg PO HS 03/30/16 Ziprasidone [Geodon -] 80 mg PO BID 03/30/16 Bupropion HCl [Wellbutrin Xl -] 450 mg PO DAILY 04/18/16 Vortioxetine Hydrobromide [Trintellix] 20 mg PO HS 12/02/16 Loratadine [Claritin] 10 mg PO DAILY 01/30/17 Family Disease History - Family Disease History Family History: Denies Review of Systems - Review of Systems Constitutional: reports: No Symptoms Eyes: reports: No Symptoms HENT: reports: No Symptoms Neck: reports: No Symptoms Cardiovascular: reports: No Symptoms Respiratory: reports: No Symptoms Gastrointestinal: reports: No Symptoms Genitourinary: reports: No Symptoms Musculoskeletal: reports: No Symptoms Integumentary: reports: No Symptoms Neurological: reports: No Symptoms Endocrine: reports: No Symptoms Hematology/Lymphatic: reports: No Symptoms Psychiatric: reports: No Symptoms Physical Examination Constitutional: Yes: Calm, Cachectic Eyes: Yes: WNL, Conjunctiva Clear, EOM Intact HENT: Yes: WNL, Atraumatic, Normocephalic Neck: Yes: WNL, Supple, Trachea Midline Cardiovascular: Yes: WNL, Regular Rate and Rhythm, S1, S2 Respiratory: Yes: WNL, Regular, CTA Bilaterally Gastrointestinal: Yes: WNL, Normal Bowel Sounds, Soft ...Rectal Exam: Yes: Deferred Renal/: Yes: WNL Breast(s): Yes: WNL Musculoskeletal: Yes: WNL Extremities: Yes: WNL Edema: No Peripheral Pulses WNL: Yes Peripheral Pulses: Left Radial: 4+, Right Radial: 4+, Left Doralis Pedis: 3+, Right Dorsalis Pedis: 3+, Left Femoral: 3+, Right Femoral: 3+ Integumentary: Yes: WNL Neurological: Yes: WNL, Alert, Oriented ...Motor Strength: WNL Psychiatric: Yes: WNL, Alert, Oriented Labs: reviewed 04/24/17 Imaging - Results EKG: Report Reviewed, Image Reviewed, Other (nsr) Assessment/Plan Patient is a 61 y/o female that presents for ect, labs and ekg reviewed patient is medically optimized for procedure informed consent, risks/benefits to be obtained by Dr Machuca
[2017-06-09] MEDS ORDERED: KETAMINE HCL 500 MG/10 ML VIAL ONE (08:34)
[2017-06-09 10:11] VITALS: TEMP 98.1
[2017-06-09 10:44] VITALS: BP 110/66; PULSE 84
[2017-06-09] MEDS ORDERED: ONDANSETRON 4 MG/2 ML VIAL IVPUSH PRN (11:59)
[2017-06-09] MEDS ORDERED: LACTATED RINGERS SOLUTION 1,000 ML IV SCH (12:00)
== END 2017-06-09 10:50 | disposition home or self-care (01) ==
LOC: FECT 05:40
PROVIDERS: ATTEND Psychiatry & Neurology Psychiatry
PROC: GZB4ZZZ Other Electroconvulsive Therapy (ICD-10-PCS; principal; 2017-06-09 08:00)
DX: F33.2 Major depressive disorder, recurrent severe without psychotic features (principal)
CPT/HCPCS: 90870; 94760

== ENCOUNTER 2017-07-03 05:45 | Day surgery (SDC) | payer OTHER ==
[2017-07-03 07:33] VITALS: BMI 15.6
[2017-07-03] MEDS ORDERED: KETAMINE HCL 500 MG/10 ML VIAL ONE (07:47)
[2017-07-03 09:37] VITALS: TEMP 97.7
[2017-07-03 10:08] VITALS: BP 100/62; PULSE 84
== END 2017-07-03 10:27 | disposition home or self-care (01) ==
LOC: FECT 05:45
PROVIDERS: ATTEND Psychiatry & Neurology Psychiatry
PROC: GZB4ZZZ Other Electroconvulsive Therapy (ICD-10-PCS; principal; 2017-07-03 07:15)
DX: F33.2 Major depressive disorder, recurrent severe without psychotic features (principal)
CPT/HCPCS: 90870; 94760

== ENCOUNTER 2017-07-31 07:35 | Day surgery (SDC) | payer OTHER ==
[2017-07-31 08:13] VITALS: BMI 16.0
[2017-07-31] MEDS ORDERED: KETAMINE HCL 500 MG/10 ML VIAL ONE (08:29)
[2017-07-31 10:48] VITALS: TEMP 97.8
[2017-07-31 11:51] VITALS: BP 110/70; PULSE 81
== END 2017-07-31 11:30 | disposition home or self-care (01) ==
LOC: FECT 07:35
PROVIDERS: ATTEND Psychiatry & Neurology Psychiatry
PROC: GZB4ZZZ Other Electroconvulsive Therapy (ICD-10-PCS; principal; 2017-07-31 07:45)
DX: F33.2 Major depressive disorder, recurrent severe without psychotic features (principal)
CPT/HCPCS: 90870; 94760

== ENCOUNTER 2017-08-14 05:44 | Day surgery (SDC) | payer OTHER ==
[2017-08-14] MEDS ORDERED: ONDANSETRON 4 MG/2 ML VIAL IVPUSH PRN (07:40)
[2017-08-14] MEDS ORDERED: ACETAMINOPHEN 325 MG TABLET (FP) PO PRN (07:40)
[2017-08-14 07:41] VITALS: TEMP 97.6; BMI 16.6
[2017-08-14] MEDS ORDERED: KETAMINE HCL 500 MG/10 ML VIAL ONE (08:06)
[2017-08-14 10:17] VITALS: PULSE 78
[2017-08-14 11:32] VITALS: BP 102/66
== END 2017-08-14 11:15 | disposition home or self-care (01) ==
LOC: FECT 05:44
PROVIDERS: ATTEND Psychiatry & Neurology Psychiatry
PROC: GZB4ZZZ Other Electroconvulsive Therapy (ICD-10-PCS; principal; 2017-08-14 07:45)
DX: F33.2 Major depressive disorder, recurrent severe without psychotic features (principal)
CPT/HCPCS: 90870; 94760

== ENCOUNTER 2017-08-29 05:42 | Day surgery (SDC) | payer OTHER ==
[2017-08-16 12:46] VITALS: BMI 16.5
--- NOTE | 2017-08-29 07:40 | HP ---
Admitting History and Physical - Admission History of Present Illness: Patient is a 62 y/o female with a past medical history of anxiety, depression, colitis and etoh abuse. Patient presents for ect, her last ect was 08/14/17. patient reports minimal improvement of her depressive symptoms since starting ect. patient denies any changes to her medications. She reports compliance with her prescribed medications. patient denies any illnesses or hospitalizations. Patient denies any suicidal or homicidal ideation, visual or auditory hallucinations. 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) History of Substance Use: reports: None - Social History Usual Living Arrangement: Yes: With Child ADL: Independent History of Recent Travel: No Home Medications - Allergies Allergies/Adverse Reactions: Allergies Allergy/AdvReac Type Severity Reaction Status Date / Time No Known Drug Allergies Allergy Verified 12/19/16 07:44 - Home Medications Home Medications: Ambulatory Orders Diazepam 10 mg PO HS 03/30/16 Diazepam 20 mg PO BID 03/30/16 Multivitamins [Multivit ([facility] Formulary)] 1 tab PO HS 03/30/16 Pantoprazole Sodium [Protonix] 40 mg PO Q2D 03/30/16 Potassium Citrate [Potassium Citrate ER] 1,080 mg PO HS 03/30/16 Topiramate 50 mg PO DAILY 03/30/16 Topiramate 100 mg PO HS 03/30/16 Ziprasidone [Geodon -] 80 mg PO BID 03/30/16 Bupropion HCl [Wellbutrin Xl -] 450 mg PO DAILY 04/18/16 Vortioxetine Hydrobromide [Trintellix] 20 mg PO HS 12/02/16 Loratadine [Claritin] 10 mg PO DAILY 01/30/17 Family Disease History - Family Disease History Family History: Denies Review of Systems - Review of Systems Constitutional: reports: No Symptoms Eyes: reports: No Symptoms HENT: reports: No Symptoms Neck: reports: No Symptoms Cardiovascular: reports: No Symptoms Respiratory: reports: No Symptoms Gastrointestinal: reports: No Symptoms Genitourinary: reports: No Symptoms Musculoskeletal: reports: No Symptoms Integumentary: reports: No Symptoms Neurological: reports: No Symptoms Endocrine: reports: No Symptoms Hematology/Lymphatic: reports: No Symptoms Psychiatric: reports: No Symptoms Physical Examination Constitutional: Yes: Well Nourished, No Distress, Cachectic Eyes: Yes: WNL, Conjunctiva Clear, EOM Intact HENT: Yes: WNL, Atraumatic, Normocephalic Neck: Yes: WNL, Supple, Trachea Midline Cardiovascular: Yes: WNL, Regular Rate and Rhythm, S1, S2 Respiratory: Yes: WNL, Regular Gastrointestinal: Yes: WNL, Normal Bowel Sounds, Soft ...Rectal Exam: Yes: Deferred Renal/: Yes: WNL Breast(s): Yes: WNL Musculoskeletal: Yes: WNL Extremities: Yes: WNL Edema: No Peripheral Pulses WNL: Yes Peripheral Pulses: Left Radial: 4+, Right Radial: 4+, Left Doralis Pedis: 3+, Right Dorsalis Pedis: 3+, Left Femoral: 3+, Right Femoral: 3+ Integumentary: Yes: WNL Neurological: Yes: WNL, Alert, Oriented ...Motor Strength: WNL Psychiatric: Yes: WNL, Alert, Oriented Labs: reviewed 04/20 Imaging - Results EKG: Image Reviewed, Other (nsr, normal axis) Assessment/Plan Patient is a 62 y/o female that presents for ect, labs and ekg reviewed patient is medically optimized for procedure informed consent, risks/benefits to be obtained by Dr Machuca
[2017-08-29 08:04] VITALS: TEMP 97.8
[2017-08-29] MEDS ORDERED: KETAMINE HCL 500 MG/10 ML VIAL ONE (08:40)
[2017-08-29 12:45] VITALS: BP 120/78; PULSE 76
== END 2017-08-29 11:45 | disposition home or self-care (01) ==
LOC: FECT 05:42
PROVIDERS: ATTEND Psychiatry & Neurology Psychiatry
PROC: GZB4ZZZ Other Electroconvulsive Therapy (ICD-10-PCS; principal; 2017-08-29 07:15)
DX: F33.2 Major depressive disorder, recurrent severe without psychotic features (principal)
CPT/HCPCS: 90870; 94760

== ENCOUNTER 2017-09-21 05:40 | Day surgery (SDC) | payer OTHER ==
[2017-09-21] MEDS ORDERED: ACETAMINOPHEN 325 MG TABLET (FP) PO PRN (07:46)
[2017-09-21 07:48] VITALS: BMI 16.5
[2017-09-21] MEDS ORDERED: KETAMINE HCL 500 MG/10 ML VIAL ONE (07:57)
[2017-09-21] MEDS ORDERED: ONDANSETRON 4 MG/2 ML VIAL ONE (09:12)
[2017-09-21] MEDS ORDERED: ONDANSETRON 4 MG/2 ML VIAL IVPUSH ONE (09:15)
[2017-09-21] MEDS ORDERED: FAMOTIDINE 20 MG/50 ML IVPB 20 MG/50 ML MG IVPB ONE (09:24)
[2017-09-21] MEDS ORDERED: FAMOTIDINE 20 MG PREMIXED IVPB IVPB ONE (09:29)
[2017-09-21 11:27] VITALS: BP 100/77; PULSE 64; TEMP 98
== END 2017-09-21 11:20 | disposition home or self-care (01) ==
LOC: FECT 05:40
PROVIDERS: ATTEND Psychiatry & Neurology Psychiatry
PROC: GZB4ZZZ Other Electroconvulsive Therapy (ICD-10-PCS; principal; 2017-09-21 07:45)
DX: F33.2 Major depressive disorder, recurrent severe without psychotic features (principal)
CPT/HCPCS: 90870; 94760

== ENCOUNTER 2017-11-06 05:37 | Day surgery (SDC) | payer OTHER ==
[2017-11-06 06:59] VITALS: TEMP 97.8; BMI 15.7
[2017-11-06] MEDS ORDERED: KETAMINE HCL 500 MG/10 ML VIAL ONE (07:18)
[2017-11-06 09:36] VITALS: BP 115/76; PULSE 77
== END 2017-11-06 10:20 | disposition home or self-care (01) ==
LOC: FECT 05:37
PROVIDERS: ATTEND Psychiatry & Neurology Psychiatry
PROC: GZB4ZZZ Other Electroconvulsive Therapy (ICD-10-PCS; principal; 2017-11-06 07:30)
DX: F33.2 Major depressive disorder, recurrent severe without psychotic features (principal)
CPT/HCPCS: 90870; 94760

== ENCOUNTER 2017-11-20 05:42 | Day surgery (SDC) | payer OTHER ==
--- NOTE | 2017-11-20 07:05 | HP ---
Admitting History and Physical - Admission History of Present Illness: Patient is a 62 year old female with a past medical history of anxiety, depression, colitis and ETOH abuse. Patient presents to [facility] for a scheduled ECT. She has been undergoing ECTs since 2017. Her last ECT was on 11/06/2017. She reports feeling well, reports some improvement in depressive symptoms since starting ECTs. She reports compliance with prescribed medications. She denies any changes to medications. Patient denies any recent illnesses or hospitalizations. Patient denies any suicidal or homicidal ideation, visual or auditory hallucinations. She denies chest pain or shortness of breath. Patient reports a mechanical fall over 1.5 weeks ago where she slipped and fell on a rug and landed on her left side. She has intermittent left thigh pain and discomfort which she takes Tylenol 500mg prn for. Last dose of Tylenol was yesterday at 11:30 p.m. No bruising noted on left thigh. Patient ambulatory, denies severe pain. Patient has a recent EKG dated 10/23/2017 a as a routine follow up and was found to have possible atrial enlargement and anteroseptal infarct on EKG. She was seen by her digital project coordinator at [facility] (Dr. Marco Yost MD) on for this reported EKG change and was cleared for continuation of ECT therapy. As per cardiology note, change in EKG was likely secondary to abnormal lead placements. History Source: Patient, Family Member Limitations to Obtaining History: No Limitations - Past Medical History Pulmonary: Yes: Other Gastrointestinal: Yes: Other (colitis) ...: No Psych: Yes: Anxiety, Depression - Past Surgical History Past Surgical History: Yes: None - Smoking History Smoking history: Current every day smoker Have you smoked in the past 12 months: Yes Aproximately how many cigarettes per day: 20 - Alcohol/Substance Use Hx Alcohol Use: No (RECOVERING ALCOHOLIC,SOBER 35 YRS) History of Substance Use: reports: None - Social History Usual Living Arrangement: Yes: With Child ADL: Independent History of Recent Travel: No Home Medications - Allergies Allergies/Adverse Reactions: Allergies Allergy/AdvReac Type Severity Reaction Status Date / Time No Known Drug Allergies Allergy Verified 11/20/17 07:34 - Home Medications Home Medications: Ambulatory Orders Diazepam 10 mg PO HS 03/30/16 Diazepam 20 mg PO BID 03/30/16 Multivitamins [Multivit ([facility] Formulary)] 1 tab PO HS 03/30/16 Pantoprazole Sodium [Protonix] 40 mg PO Q2D 03/30/16 Potassium Citrate [Potassium Citrate ER] 1,080 mg PO HS 03/30/16 Topiramate 50 mg PO DAILY 03/30/16 Topiramate 100 mg PO HS 03/30/16 Ziprasidone [Geodon -] 80 mg PO BID 03/30/16 Bupropion HCl [Wellbutrin Xl -] 450 mg PO DAILY 04/18/16 Vortioxetine Hydrobromide [Trintellix] 20 mg PO HS 12/02/16 Loratadine [Claritin] 10 mg PO DAILY 01/30/17 Review of Systems - Review of Systems Constitutional: reports: No Symptoms Eyes: reports: No Symptoms HENT: reports: No Symptoms Neck: reports: No Symptoms Cardiovascular: reports: No Symptoms Respiratory: reports: No Symptoms Gastrointestinal: reports: No Symptoms Genitourinary: reports: No Symptoms Breasts: reports: No Symptoms Reported Musculoskeletal: reports: Muscle Pain, Other Integumentary: reports: No Symptoms Neurological: reports: No Symptoms Endocrine: reports: No Symptoms Hematology/Lymphatic: reports: No Symptoms Psychiatric: reports: No Symptoms (pt reports mechanical fall 1.5 week ago with a bruise to her left thigh, no difficulty with amubulation, takes tylenol for muscular pain) Physical Examination Constitutional: Yes: Calm, Cachectic Eyes: Yes: WNL HENT: Yes: WNL Neck: Yes: WNL Cardiovascular: Yes: WNL Respiratory: Yes: Diminished Gastrointestinal: Yes: WNL ...Rectal Exam: Yes: Deferred Renal/: Yes: WNL Breast(s): Yes: WNL Musculoskeletal: Yes: Muscle Pain Extremities: Yes: WNL Integumentary: Yes: WNL Neurological: Yes: WNL ...Motor Strength: WNL Imaging - Results EKG: Report Reviewed Assessment/Plan Patient is a 62 year old female that presents today for scheduled ECT. Her labs , ekg reviewed. Patient is medically optimized for procedure and her recent EKG changes have been reviewed and cleared by her digital project coordinator. Informed consent, risk, benefits of scheduled ECT to be obtained by Dr. Machuca
[2017-11-20 07:41] VITALS: BMI 15.5
[2017-11-20 10:11] VITALS: TEMP 97.9
[2017-11-20] MEDS ORDERED: ONDANSETRON *ODT* 4 MG TABLET ONE (11:36)
[2017-11-20 11:43] VITALS: BP 111/72; PULSE 76
[2017-11-20] MEDS ORDERED: ONDANSETRON *ODT* 4 MG TABLET SL ONE (12:24)
== END 2017-11-20 11:56 | disposition home or self-care (01) ==
LOC: FECT 05:42
PROVIDERS: ATTEND Psychiatry & Neurology Psychiatry
PROC: GZB4ZZZ Other Electroconvulsive Therapy (ICD-10-PCS; principal; 2017-11-20 07:00)
DX: F33.2 Major depressive disorder, recurrent severe without psychotic features (principal)
CPT/HCPCS: 90870; 94760; Q0162

== ENCOUNTER 2017-12-05 05:38 | Day surgery (SDC) | payer OTHER ==
[2017-12-05 07:40] VITALS: BMI 15.6
[2017-12-05] MEDS ORDERED: ONDANSETRON *ODT* 4 MG TABLET SL ONE ×2 (12:00→19:15)
[2017-12-05 12:23] VITALS: BP 102/70; PULSE 74; TEMP 97.6
== END 2017-12-05 12:46 | disposition home or self-care (01) ==
LOC: FECT 05:38
PROVIDERS: ATTEND Psychiatry & Neurology Psychiatry
PROC: GZB4ZZZ Other Electroconvulsive Therapy (ICD-10-PCS; principal; 2017-12-05 07:15)
DX: F33.2 Major depressive disorder, recurrent severe without psychotic features (principal)
CPT/HCPCS: 90870; 94760; Q0162

== ENCOUNTER 2017-12-18 06:40 | Day surgery (SDC) | payer OTHER ==
[2017-12-18 07:25] VITALS: TEMP 97.5; BMI 15.6
[2017-12-18] MEDS ORDERED: ACETAMINOPHEN 325 MG TABLET (FP) PO PRN (08:15)
[2017-12-18 10:17] VITALS: BP 108/77; PULSE 64
== END 2017-12-18 10:20 | disposition home or self-care (01) ==
LOC: FECT 06:40
PROVIDERS: ATTEND Psychiatry & Neurology Psychiatry
PROC: GZB4ZZZ Other Electroconvulsive Therapy (ICD-10-PCS; principal; 2017-12-18 07:00)
DX: F33.2 Major depressive disorder, recurrent severe without psychotic features (principal)
CPT/HCPCS: 90870; 94760

== ENCOUNTER 2018-01-01 05:38 | Day surgery (SDC) | payer OTHER ==
[2018-01-01 07:16] VITALS: BMI 15.9
--- NOTE | 2018-01-01 07:21 | HP ---
Admitting History and Physical - Admission History of Present Illness: Patient is a 62-year-old female, with a past medical history of anxiety, depression, colitis, and EtOH abuse. Patient presents for ECT patient has been undergoing ECT since 2017. Last ECT was 12/18/2017 patient reports feeling well. Patient recently started Chantix 12/02/2017. She reports no adverse reaction to the medication and her last cigarette was 12/12/2017. Patient denies any suicidal or homicidal ideation, visual or auditory hallucinations. History Source: Patient Limitations to Obtaining History: No Limitations - Past Medical History Pulmonary: Yes: Other Gastrointestinal: Yes: Other (colitis) Psych: Yes: Anxiety, Depression - Past Surgical History Past Surgical History: Yes: None - Smoking History Smoking history: Current every day smoker Have you smoked in the past 12 months: Yes Aproximately how many cigarettes per day: 20 - Alcohol/Substance Use Hx Alcohol Use: No (RECOVERING ALCOHOLIC,SOBER 35 YRS) History of Substance Use: reports: None - Social History Usual Living Arrangement: Yes: With Child ADL: Independent History of Recent Travel: No Home Medications - Allergies Allergies/Adverse Reactions: Allergies Allergy/AdvReac Type Severity Reaction Status Date / Time No Known Drug Allergies Allergy Verified 12/18/17 07:26 - Home Medications Home Medications: Ambulatory Orders Diazepam 10 mg PO HS 03/30/16 Diazepam 20 mg PO BID 03/30/16 Multivitamins [Multivit ([facility] Formulary)] 1 tab PO HS 03/30/16 Pantoprazole Sodium [Protonix] 40 mg PO Q2D 03/30/16 Potassium Citrate [Potassium Citrate ER] 1,080 mg PO HS 03/30/16 Topiramate 50 mg PO DAILY 03/30/16 Topiramate 100 mg PO HS 03/30/16 Ziprasidone [Geodon -] 80 mg PO BID 03/30/16 Bupropion HCl [Wellbutrin Xl -] 450 mg PO DAILY 04/18/16 Vortioxetine Hydrobromide [Trintellix] 20 mg PO HS 12/02/16 Loratadine [Claritin] 10 mg PO DAILY 01/30/17 Varenicline Tartrate [Chantix] 1 mg PO BID 12/05/17 Amoxicillin - [Amoxicillin 500mg Capsule -] 500 mg PO QID 12/18/17 Family Disease History - Family Disease History Family History: Denies Review of Systems - Review of Systems Constitutional: reports: No Symptoms Eyes: reports: No Symptoms HENT: reports: No Symptoms Neck: reports: No Symptoms Cardiovascular: reports: No Symptoms Respiratory: reports: No Symptoms Gastrointestinal: reports: No Symptoms Genitourinary: reports: No Symptoms Musculoskeletal: reports: No Symptoms Integumentary: reports: No Symptoms Neurological: reports: No Symptoms Endocrine: reports: No Symptoms Hematology/Lymphatic: reports: No Symptoms Psychiatric: reports: No Symptoms Physical Examination Constitutional: Yes: No Distress, Calm, Cachectic, Thin Eyes: Yes: WNL, Conjunctiva Clear, EOM Intact HENT: Yes: WNL, Atraumatic, Normocephalic Neck: Yes: WNL, Supple, Trachea Midline Cardiovascular: Yes: WNL, Regular Rate and Rhythm, S1, S2 Respiratory: Yes: WNL, Regular, CTA Bilaterally Gastrointestinal: Yes: WNL, Normal Bowel Sounds, Soft ...Rectal Exam: Yes: Deferred Renal/: Yes: WNL Musculoskeletal: Yes: WNL Extremities: Yes: WNL Edema: No Peripheral Pulses WNL: Yes Peripheral Pulses: Left Radial: 4+, Right Radial: 4+, Left Doralis Pedis: 3+, Right Dorsalis Pedis: 3+, Left Femoral: 3+, Right Femoral: 3+ Integumentary: Yes: WNL Neurological: Yes: WNL, Alert, Oriented ...Motor Strength: WNL Psychiatric: Yes: WNL, Alert, Oriented Labs: reviewed 10/23/17 Imaging - Results EKG: Other (nsr, anterior septal infarct) Assessment/Plan Patient is 62 y/o female that presents for ECT, labs and EKG reviewed Patient is medically optimized for procedure. informed consent, risks/benefits to be obtained by Dr Luna
[2018-01-01 09:29] VITALS: TEMP 97.6
[2018-01-01 11:09] VITALS: BP 100/62; PULSE 71
== END 2018-01-01 11:00 | disposition home or self-care (01) ==
LOC: FECT 05:38
PROVIDERS: ATTEND Psychiatry & Neurology Psychiatry
PROC: GZB4ZZZ Other Electroconvulsive Therapy (ICD-10-PCS; principal; 2018-01-01 07:00)
DX: F33.2 Major depressive disorder, recurrent severe without psychotic features (principal)
CPT/HCPCS: 90870; 94760

== ENCOUNTER 2018-01-15 05:40 | Day surgery (SDC) | payer OTHER ==
[2018-01-05 10:23] VITALS: BMI 15.7
[2018-01-15 07:57] VITALS: TEMP 97.8
[2018-01-15 10:31] VITALS: BP 105/75; PULSE 72
== END 2018-01-15 10:55 | disposition home or self-care (01) ==
LOC: FECT 05:40
PROVIDERS: ATTEND Psychiatry & Neurology Psychiatry
PROC: GZB4ZZZ Other Electroconvulsive Therapy (ICD-10-PCS; principal; 2018-01-15 07:15)
DX: F33.2 Major depressive disorder, recurrent severe without psychotic features (principal)
CPT/HCPCS: 90870; 94760

== ENCOUNTER 2018-01-29 05:46 | Day surgery (SDC) | payer OTHER ==
[2018-01-29 08:17] VITALS: BMI 16.1
[2018-01-29] MEDS ORDERED: KETAMINE HCL 500 MG/10 ML VIAL ONE (08:46)
[2018-01-29 10:01] VITALS: TEMP 98.1
[2018-01-29 10:22] VITALS: BP 104/65; PULSE 71
== END 2018-01-29 10:45 | disposition home or self-care (01) ==
LOC: FECT 05:46
PROVIDERS: ATTEND Psychiatry & Neurology Psychiatry
PROC: GZB4ZZZ Other Electroconvulsive Therapy (ICD-10-PCS; principal; 2018-01-29 07:30)
DX: F33.2 Major depressive disorder, recurrent severe without psychotic features (principal)
CPT/HCPCS: 90870; 94760

== ENCOUNTER 2018-02-12 05:50 | Day surgery (SDC) | payer OTHER ==
[2018-02-12 08:03] VITALS: BMI 16.0
--- NOTE | 2018-02-12 08:25 | HP ---
PCP: None Primary Psychiatrist: Dr. Stewart ECT Psychiatrist: Dr. Wong HISTORY OF PRESENT ILLNESS: 62 year-old female with a PMH significant for major depressive disorder, began ECT in 2016. She presents today for ECT. Notable 30 day events * started Chantix, last cigarette 12/11/17 * no change in meds * no recent illnesses PAST MEDICAL HISTORY: Major depressive disorder Collagenous colitis (in remission since October 2016) ETOH abuse (sober 35 years) PAST SURGICAL HISTORY: None reported Social History: Smoking: quit 12/11/17, on Chantix Alcohol: denies Drugs: denies Family History: Allergies No Known Drug Allergies Allergy (Verified 12/18/17 07:26) HOME MEDICATIONS: Home Medications Medication Instructions Recorded Diazepam 10 mg PO HS 03/30/16 Diazepam 20 mg PO BID 03/30/16 Multivitamins [Multivit ([facility] 1 tab PO HS 03/30/16 Formulary)] Pantoprazole Sodium [Protonix] 40 mg PO Q2D 03/30/16 Potassium Citrate [Potassium 1,080 mg PO HS 03/30/16 Citrate ER] Topiramate 50 mg PO DAILY 03/30/16 Topiramate 100 mg PO HS 03/30/16 Ziprasidone [Geodon -] 80 mg PO BID 03/30/16 Bupropion HCl [Wellbutrin Xl -] 450 mg PO DAILY 04/18/16 Vortioxetine Hydrobromide 10 mg PO HS 12/02/16 [Trintellix] Loratadine [Claritin] 10 mg PO DAILY 01/30/17 Varenicline Tartrate [Chantix] 1 mg PO BID 12/05/17 Fluoxetine HCl [Prozac -] 10 mg PO DAILY 02/12/18 REVIEW OF SYSTEMS CONSTITUTIONAL: Absent: fever, chills, diaphoresis, generalized weakness, malaise, loss of appetite, weight change HEENT: Absent: rhinorrhea, nasal congestion, throat pain, throat swelling, difficulty swallowing, mouth swelling, ear pain, eye pain, visual changes CARDIOVASCULAR: Absent: chest pain, syncope, palpitations, irregular heart rate, lightheadedness , peripheral edema RESPIRATORY: Absent: cough, shortness of breath, dyspnea with exertion, orthopnea, wheezing, stridor, hemoptysis GASTROINTESTINAL: Absent: abdominal pain, abdominal distension, nausea, vomiting, diarrhea, constipation, melena, hematochezia GENITOURINARY: Absent: dysuria, frequency, urgency, hesitancy, hematuria, flank pain, genital pain MUSCULOSKELETAL: Absent: myalgia, arthralgia, joint swelling, back pain, neck pain SKIN: Absent: rash, itching, pallor HEMATOLOGIC/IMMUNOLOGIC: Absent: easy bleeding, easy bruising, lymphadenopathy, frequent infections ENDOCRINE: Absent: unexplained weight gain, unexplained weight loss, heat intolerance, cold intolerance NEUROLOGIC: Absent: headache, focal weakness or paresthesias, dizziness, unsteady gait, seizure, mental status changes, bladder or bowel incontinence PSYCHIATRIC: Absent: anxiety, depression, suicidal or homicidal ideation, hallucinations. PHYSICAL EXAMINATION Vital Signs - 24 hr 02/12/18 07:57 Temperature 97.4 F L Pulse Rate 80 Respiratory 18 Rate Blood Pressure 103/65 O2 Sat by Pulse 100 Oximetry (%) GENERAL: Awake, alert, and fully oriented, in no acute distress. HEAD: Normal with no signs of trauma. EYES: Pupils equal, round and reactive to light, extraocular movements intact, sclera anicteric, conjunctiva clear. No lid lag. EARS, NOSE, THROAT: Ears normal, nares patent, oropharynx clear without exudates. Moist mucous membranes. NECK: Normal range of motion, supple without lymphadenopathy, JVD, or masses. LUNGS: Breath sounds equal, clear to auscultation bilaterally. No wheezes, and no crackles. No accessory muscle use. HEART: Regular rate and rhythm, normal S1 and S2 without murmur, rub or gallop. ABDOMEN: Soft, nontender, not distended, normoactive bowel sounds, no guarding, no rebound, no masses. No hepatomegaly or splenomegaly. MUSCULOSKELETAL: Normal range of motion at all joints. No bony deformities or tenderness. No CVA tenderness. UPPER EXTREMITIES: 2+ pulses, warm, well-perfused. No cyanosis. No clubbing. No peripheral edema. LOWER EXTREMITIES: 2+ pulses, warm, well-perfused. No calf tenderness. No peripheral edema. NEUROLOGICAL: Cranial nerves II-XII intact. Normal speech. ASSESSMENT/PLAN: 62 year-old female with a PMH significant for major depressive disorder. Patient has no history of cardiac problems. She has had no reported difficulties with anesthesia and has tolerated ECT well in the past. ECT is a low-risk procedure. The relative benefits outweigh the relative risks for this patient. Patient to proceed to PACU for ECT. Visit type - Emergency Visit Emergency Visit: No - New Patient This patient is new to me today: Yes Date on this admission: 02/12/18 - Critical Care Critical Care patient: No
[2018-02-12] MEDS ORDERED: KETAMINE HCL 500 MG/10 ML VIAL ONE (08:39)
[2018-02-12 10:09] VITALS: TEMP 98.2
[2018-02-12 10:49] VITALS: BP 142/86; PULSE 68
== END 2018-02-12 10:51 | disposition home or self-care (01) ==
LOC: FECT 05:50
PROVIDERS: ATTEND Psychiatry & Neurology Psychiatry
PROC: GZB4ZZZ Other Electroconvulsive Therapy (ICD-10-PCS; principal; 2018-02-12 08:15)
DX: F33.2 Major depressive disorder, recurrent severe without psychotic features (principal)
CPT/HCPCS: 90870; 94760

== ENCOUNTER 2018-02-26 05:47 | Day surgery (SDC) | payer OTHER ==
[2018-02-26 08:11] VITALS: BMI 15.9
[2018-02-26] MEDS ORDERED: KETAMINE HCL 500 MG/10 ML VIAL ONE (08:30)
[2018-02-26 09:52] VITALS: TEMP 98.1
[2018-02-26 10:19] VITALS: BP 94/60; PULSE 69
== END 2018-02-26 10:30 | disposition home or self-care (01) ==
LOC: FECT 05:47
PROVIDERS: ATTEND Psychiatry & Neurology Psychiatry
PROC: GZB4ZZZ Other Electroconvulsive Therapy (ICD-10-PCS; principal; 2018-02-26 07:30)
DX: F33.2 Major depressive disorder, recurrent severe without psychotic features (principal)
CPT/HCPCS: 90870; 94760

== ENCOUNTER 2018-03-12 05:43 | Day surgery (SDC) | payer OTHER ==
[2018-03-12 08:01] VITALS: BMI 16.2
[2018-03-12] MEDS ORDERED: KETAMINE HCL 500 MG/10 ML VIAL ONE (08:14)
[2018-03-12 09:35] VITALS: TEMP 98.3
[2018-03-12 11:32] VITALS: BP 122/74; PULSE 76
== END 2018-03-12 10:45 | disposition home or self-care (01) ==
LOC: FECT 05:43
PROVIDERS: ATTEND Psychiatry & Neurology Psychiatry
PROC: GZB4ZZZ Other Electroconvulsive Therapy (ICD-10-PCS; principal; 2018-03-12 07:30)
DX: F33.2 Major depressive disorder, recurrent severe without psychotic features (principal)
CPT/HCPCS: 90870; 94760

== ENCOUNTER 2018-03-26 05:41 | Day surgery (SDC) | payer OTHER ==
--- NOTE | 2018-03-26 07:34 | HP ---
CHIEF COMPLAINT: Major depressive disorder PCP: None [facility] [place] HISTORY OF PRESENT ILLNESS: 62 year-old female with a PMH significant for major depressive disorder, began ECT in 2016. She presents today for ECT. Recent Events: * Trintellex dc'd * Prozac increased 50mg daily PAST MEDICAL HISTORY: Major depressive disorder Collagenous colitis (in remission since October 2016) ETOH abuse (sober 35 years) PAST SURGICAL HISTORY: None reported Social History: Smoking: quit 12/11/17, on Chantix Alcohol: denies Allergies No Known Drug Allergies Allergy (Verified 12/18/17 07:26) HOME MEDICATIONS: Home Medications Medication Instructions Recorded Diazepam 10 mg PO HS 03/30/16 Diazepam 20 mg PO BID 03/30/16 Multivitamins [Multivit ([facility] 1 tab PO HS 03/30/16 Formulary)] Pantoprazole Sodium [Protonix] 40 mg PO Q2D 03/30/16 Potassium Citrate [Potassium 1,080 mg PO HS 03/30/16 Citrate ER] Topiramate 50 mg PO DAILY 03/30/16 Topiramate 100 mg PO HS 03/30/16 Ziprasidone [Geodon -] 80 mg PO BID 03/30/16 Bupropion HCl [Wellbutrin Xl -] 450 mg PO DAILY 04/18/16 Loratadine [Claritin] 10 mg PO DAILY 01/30/17 Varenicline Tartrate [Chantix] 1 mg PO BID 12/05/17 Fluoxetine HCl [Prozac -] 40 mg PO DAILY 02/12/18 REVIEW OF SYSTEMS CONSTITUTIONAL: Absent: fever, chills, diaphoresis, generalized weakness, malaise, loss of appetite, weight change HEENT: Absent: rhinorrhea, nasal congestion, throat pain, throat swelling, difficulty swallowing, mouth swelling, ear pain, eye pain, visual changes CARDIOVASCULAR: Absent: chest pain, syncope, palpitations, irregular heart rate, lightheadedness , peripheral edema RESPIRATORY: Absent: cough, shortness of breath, dyspnea with exertion, orthopnea, wheezing, stridor, hemoptysis GASTROINTESTINAL: Absent: abdominal pain, abdominal distension, nausea, vomiting, diarrhea, constipation, melena, hematochezia GENITOURINARY: Absent: dysuria, frequency, urgency, hesitancy, hematuria, flank pain, genital pain MUSCULOSKELETAL: Absent: myalgia, arthralgia, joint swelling, back pain, neck pain SKIN: Absent: rash, itching, pallor HEMATOLOGIC/IMMUNOLOGIC: Absent: easy bleeding, easy bruising, lymphadenopathy, frequent infections ENDOCRINE: Absent: unexplained weight gain, unexplained weight loss, heat intolerance, cold intolerance NEUROLOGIC: Absent: headache, focal weakness or paresthesias, dizziness, unsteady gait, seizure, mental status changes, bladder or bowel incontinence PHYSICAL EXAMINATION GENERAL: Awake, alert, and fully oriented, in no acute distress. HEAD: Normal with no signs of trauma. EYES: Pupils equal, round and reactive to light, sclera anicteric, conjunctiva clear. LUNGS: Breath sounds equal, clear to auscultation bilaterally. No wheezes, and no crackles. No accessory muscle use. HEART: Regular rate and rhythm, normal S1 and S2 ABDOMEN: Soft, nontender, not distended MUSCULOSKELETAL: Normal range of motion at all joints. No bony deformities or tenderness. No CVA tenderness. UPPER EXTREMITIES: 2+ pulses, warm, well-perfused. No cyanosis. No clubbing. No peripheral edema. LOWER EXTREMITIES: 2+ pulses, warm, well-perfused. No calf tenderness. No peripheral edema. NEUROLOGICAL: Cranial nerves II-XII intact. Normal speech. ASSESSMENT/PLAN: Cardiac --no cardiac history --Revised Cardiac Risk Index for Pre-Operative Risk: 0 points, 0.4% risk of major cardiac event Pulmonary --no pulmonary history Neurological --no neurological or neurosurgical history; no history of trauma Anesthesia --no reported problems with anesthesia ECT is a low risk procedure. The relative benefits of the planned procedure outweigh the relative risks for this patient at this time. Visit type - Emergency Visit Emergency Visit: No - New Patient This patient is new to me today: Yes Date on this admission: 03/26/18 - Critical Care Critical Care patient: No
[2018-03-26 07:38] VITALS: BMI 16.4
[2018-03-26] MEDS ORDERED: KETAMINE HCL 500 MG/10 ML VIAL ONE (08:44)
[2018-03-26 10:12] VITALS: TEMP 98.6
[2018-03-26 11:48] VITALS: BP 105/62; PULSE 64
== END 2018-03-26 11:35 | disposition home or self-care (01) ==
LOC: FECT 05:41
PROVIDERS: ATTEND Psychiatry & Neurology Psychiatry
PROC: GZB4ZZZ Other Electroconvulsive Therapy (ICD-10-PCS; principal; 2018-03-26 07:00)
DX: F33.2 Major depressive disorder, recurrent severe without psychotic features (principal)
CPT/HCPCS: 90870; 94760

== ENCOUNTER 2018-04-09 05:42 | Day surgery (SDC) | payer OTHER ==
[2018-04-09 08:24] VITALS: TEMP 97.8; BMI 16.4
[2018-04-09] MEDS ORDERED: KETAMINE HCL 500 MG/10 ML VIAL ONE (09:28)
[2018-04-09] MEDS ORDERED: ACETAMINOPHEN 325 MG TABLET (FP) PO PRN (10:16)
[2018-04-09] MEDS ORDERED: ONDANSETRON 4 MG/2 ML VIAL IVPUSH PRN (10:16)
[2018-04-09] MEDS ORDERED: LACTATED RINGERS SOLUTION 1,000 ML IV SCH (10:30)
[2018-04-09 11:33] VITALS: BP 121/71; PULSE 72
== END 2018-04-09 12:03 | disposition home or self-care (01) ==
LOC: FECT 05:42
PROVIDERS: ATTEND Psychiatry & Neurology Psychiatry
PROC: GZB4ZZZ Other Electroconvulsive Therapy (ICD-10-PCS; principal; 2018-04-09 07:15)
DX: F33.2 Major depressive disorder, recurrent severe without psychotic features (principal)
CPT/HCPCS: 90870; 94760

== ENCOUNTER 2018-04-25 05:43 | Day surgery (SDC) | payer OTHER ==
[2018-04-25 07:04] VITALS: BMI 16.7
[2018-04-25] MEDS ORDERED: KETAMINE HCL SYRINGES 150 MG/3 ML VIAL ONE (07:27)
[2018-04-25] MEDS ORDERED: ACETAMINOPHEN 325 MG TABLET (FP) PO PRN (07:56)
[2018-04-25] MEDS ORDERED: PROMETHAZINE HCL 25 MG/1 ML VIAL IVPUSH PRN (07:56)
[2018-04-25] MEDS ORDERED: LACTATED RINGERS SOLUTION 1,000 ML IV SCH (08:00)
[2018-04-25 09:37] VITALS: TEMP 97.9
[2018-04-25 09:50] VITALS: BP 115/73; PULSE 73
== END 2018-04-25 10:33 | disposition home or self-care (01) ==
LOC: FECT 05:43
PROVIDERS: ATTEND Psychiatry & Neurology Psychiatry
PROC: GZB4ZZZ Other Electroconvulsive Therapy (ICD-10-PCS; principal; 2018-04-25 07:15)
DX: F33.2 Major depressive disorder, recurrent severe without psychotic features (principal)
CPT/HCPCS: 90870; 94760

== ENCOUNTER 2018-05-07 05:41 | Day surgery (SDC) | payer OTHER | END 2018-05-07 10:30 | disposition home or self-care (01) | LOC: FECT 05:41 ==

== ENCOUNTER 2018-05-22 05:44 | Day surgery (SDC) | payer OTHER ==
[2018-05-22 07:20] VITALS: BMI 16.4
[2018-05-22] MEDS ORDERED: PROMETHAZINE HCL 25 MG/1 ML VIAL IVPUSH PRN (07:23)
[2018-05-22] MEDS ORDERED: ACETAMINOPHEN 325 MG TABLET (FP) PO PRN (07:23)
[2018-05-22] MEDS ORDERED: LACTATED RINGERS SOLUTION 1,000 ML IV SCH (07:30)
[2018-05-22] MEDS ORDERED: KETAMINE HCL SYRINGES 150 MG/3 ML ONE (07:46)
[2018-05-22 09:30] VITALS: TEMP 98
[2018-05-22 09:51] VITALS: BP 127/70; PULSE 73
== END 2018-05-22 10:21 | disposition home or self-care (01) ==
LOC: FECT 05:44
PROVIDERS: ATTEND Psychiatry & Neurology Psychiatry
PROC: GZB4ZZZ Other Electroconvulsive Therapy (ICD-10-PCS; principal; 2018-05-22 07:15)
DX: F32.9 Major depressive disorder, single episode, unspecified (principal)
CPT/HCPCS: 90870; 94760

== ENCOUNTER 2018-06-05 05:44 | Day surgery (SDC) | payer OTHER ==
--- NOTE | 2018-06-05 06:49 | HP ---
CHIEF COMPLAINT: Major depressive disorder PCP: None [facility] HISTORY OF PRESENT ILLNESS: 62 year-old female with a PMH significant for major depressive disorder, began ECT in 2016. She presents today for ECT. Recent Events: * Trintellex 15mg QHS resumed * Prozac has been titrated, presently 10mg QAM PAST MEDICAL HISTORY: Major depressive disorder Collagenous colitis (in remission since October 2016) ETOH abuse (sober 35 years) PAST SURGICAL HISTORY: None reported Social History: Smoking: quit 12/11/17, on Chantix Alcohol: denies Allergies No Known Drug Allergies Allergy (Verified 03/26/18 07:39) HOME MEDICATIONS: Medication Instructions Recorded Diazepam 10 mg PO HS 03/30/16 Diazepam 20 mg PO BID 03/30/16 Multivitamins [Multivit ([facility] 1 tab PO HS 03/30/16 Formulary)] Pantoprazole Sodium [Protonix] 40 mg PO DAILY 03/30/16 Potassium Citrate [Potassium 1,080 mg PO HS 03/30/16 Citrate ER] Topiramate 50 mg PO DAILY 03/30/16 Topiramate 100 mg PO HS 03/30/16 Ziprasidone [Geodon -] 80 mg PO BID 03/30/16 Bupropion HCl [Wellbutrin Xl -] 450 mg PO DAILY 04/18/16 Loratadine [Claritin] 10 mg PO DAILY 01/30/17 Varenicline Tartrate [Chantix] 1 mg PO BID 12/05/17 Fluoxetine HCl [Prozac] 30 mg PO DAILY 05/07/18 Vortioxetine Hydrobromide 10 mg PO HS 05/07/18 [Trintellix] REVIEW OF SYSTEMS CONSTITUTIONAL: Absent: fever, chills, diaphoresis, generalized weakness, malaise, loss of appetite, weight change HEENT: Absent: rhinorrhea, nasal congestion, throat pain, throat swelling, difficulty swallowing, mouth swelling, ear pain, eye pain, visual changes CARDIOVASCULAR: Absent: chest pain, syncope, palpitations, irregular heart rate, lightheadedness , peripheral edema RESPIRATORY: Absent: cough, shortness of breath, dyspnea with exertion, orthopnea, wheezing, stridor, hemoptysis GASTROINTESTINAL: Absent: abdominal pain, abdominal distension, nausea, vomiting, diarrhea, constipation, melena, hematochezia GENITOURINARY: Absent: dysuria, frequency, urgency, hesitancy, hematuria, flank pain, genital pain MUSCULOSKELETAL: Absent: myalgia, arthralgia, joint swelling, back pain, neck pain SKIN: Absent: rash, itching, pallor HEMATOLOGIC/IMMUNOLOGIC: Absent: easy bleeding, easy bruising, lymphadenopathy, frequent infections ENDOCRINE: Absent: unexplained weight gain, unexplained weight loss, heat intolerance, cold intolerance NEUROLOGIC: Absent: headache, focal weakness or paresthesias, dizziness, unsteady gait, seizure, mental status changes, bladder or bowel incontinence PHYSICAL EXAMINATION GENERAL: Awake, alert, and fully oriented, in no acute distress. HEAD: Normal with no signs of trauma. EYES: Pupils equal, round and reactive to light, sclera anicteric, conjunctiva clear. LUNGS: Breath sounds equal, clear to auscultation bilaterally. No wheezes, and no crackles. No accessory muscle use. HEART: Regular rate and rhythm, normal S1 and S2 ABDOMEN: Soft, nontender, not distended MUSCULOSKELETAL: Normal range of motion at all joints. No bony deformities or tenderness. No CVA tenderness. UPPER EXTREMITIES: 2+ pulses, warm, well-perfused. No cyanosis. No clubbing. No peripheral edema. LOWER EXTREMITIES: 2+ pulses, warm, well-perfused. No calf tenderness. No peripheral edema. NEUROLOGICAL: Cranial nerves II-XII intact. Normal speech. ASSESSMENT/PLAN: 62 year-old female with a PMH significant for major depressive disorder. She presents today for ECT. Cardiac --no cardiac history --Revised Cardiac Risk Index for Pre-Operative Risk: 0 points, 0.4% risk of major cardiac event Pulmonary --no pulmonary history Neurological --no neurological or neurosurgical history; no history of trauma Anesthesia --no reported problems with anesthesia ECT is a low risk procedure. The relative benefits of the planned procedure outweigh the relative risks for this patient at this time. Visit type - Emergency Visit Emergency Visit: No - New Patient This patient is new to me today: Yes Date on this admission: 06/05/18 - Critical Care Critical Care patient: No
[2018-06-05 07:19] VITALS: TEMP 97.8; BMI 16.4
[2018-06-05] MEDS ORDERED: KETAMINE HCL SYRINGES 150 MG/3 ML ONE (08:04)
[2018-06-05 10:08] VITALS: BP 125/75; PULSE 73
[2018-06-05] MEDS ORDERED: LACTATED RINGERS SOLUTION 1,000 ML IV SCH (11:45)
== END 2018-06-05 10:15 | disposition home or self-care (01) ==
LOC: FECT 05:44
PROVIDERS: ATTEND Psychiatry & Neurology Psychiatry
PROC: GZB4ZZZ Other Electroconvulsive Therapy (ICD-10-PCS; principal; 2018-06-05 08:00)
DX: F32.9 Major depressive disorder, single episode, unspecified (principal)
CPT/HCPCS: 90870; 94760

== ENCOUNTER 2018-06-18 05:42 | Day surgery (SDC) | payer OTHER ==
[2018-06-11 15:25] VITALS: BMI 16.4
[2018-06-18 07:24] VITALS: TEMP 97.7
[2018-06-18] MEDS ORDERED: KETAMINE HCL 500 MG/10 ML VIAL ONE (07:43)
[2018-06-18 09:50] VITALS: BP 108/78; PULSE 76
== END 2018-06-18 10:00 | disposition home or self-care (01) ==
LOC: FECT 05:42
PROVIDERS: ATTEND Psychiatry & Neurology Psychiatry
PROC: GZB4ZZZ Other Electroconvulsive Therapy (ICD-10-PCS; principal; 2018-06-18 07:00)
DX: F33.2 Major depressive disorder, recurrent severe without psychotic features (principal)
CPT/HCPCS: 90870; 94760

== ENCOUNTER 2018-07-03 05:41 | Day surgery (SDC) | payer OTHER ==
[2018-07-03 07:05] VITALS: BMI 16.9
[2018-07-03] MEDS ORDERED: KETAMINE HCL SYRINGES 150 MG/3 ML ONE (07:33)
[2018-07-03 09:24] VITALS: BP 101/66; PULSE 76; TEMP 97.9
== END 2018-07-03 09:45 | disposition home or self-care (01) ==
LOC: FECT 05:41
PROVIDERS: ATTEND Psychiatry & Neurology Psychiatry
PROC: GZB4ZZZ Other Electroconvulsive Therapy (ICD-10-PCS; principal; 2018-07-03 07:30)
DX: F32.9 Major depressive disorder, single episode, unspecified (principal)
CPT/HCPCS: 90870; 94760

== ENCOUNTER 2018-07-16 05:44 | Day surgery (SDC) | payer OTHER ==
[2018-07-16 07:08] VITALS: BMI 16.8
[2018-07-16] MEDS ORDERED: KETAMINE HCL 500 MG/10 ML VIAL ONE (07:55)
[2018-07-16 09:05] VITALS: TEMP 97.9
[2018-07-16] MEDS ORDERED: ONDANSETRON *ODT* 4 MG TABLET ONE (10:22)
[2018-07-16 11:12] VITALS: PULSE 71
[2018-07-16 11:18] VITALS: BP 108/73
== END 2018-07-16 10:45 | disposition home or self-care (01) ==
LOC: FECT 05:44
PROVIDERS: ATTEND Psychiatry & Neurology Psychiatry
PROC: GZB4ZZZ Other Electroconvulsive Therapy (ICD-10-PCS; principal; 2018-07-16 07:00)
DX: F33.2 Major depressive disorder, recurrent severe without psychotic features (principal)
CPT/HCPCS: 90870; 94760; Q0162

== ENCOUNTER 2018-07-30 05:40 | Day surgery (SDC) | payer OTHER ==
[2018-07-30 06:52] VITALS: BMI 16.7
[2018-07-30] MEDS ORDERED: KETAMINE HCL 500 MG/10 ML VIAL ONE (07:23)
[2018-07-30] MEDS ORDERED: ONDANSETRON 4 MG/2 ML VIAL IVPUSH PRN (07:58)
[2018-07-30] MEDS ORDERED: LACTATED RINGERS SOLUTION 1,000 ML IV SCH (08:00)
[2018-07-30 08:39] VITALS: PULSE 66; TEMP 97.6
[2018-07-30 09:38] VITALS: BP 113/69
== END 2018-07-30 09:45 | disposition home or self-care (01) ==
LOC: FECT 05:40
PROVIDERS: ATTEND Psychiatry & Neurology Psychiatry
PROC: GZB4ZZZ Other Electroconvulsive Therapy (ICD-10-PCS; principal; 2018-07-30 07:00)
DX: F33.2 Major depressive disorder, recurrent severe without psychotic features (principal)
CPT/HCPCS: 90870; 94760

== ENCOUNTER 2018-08-13 05:38 | Day surgery (SDC) | payer OTHER ==
[2018-08-08 17:10] VITALS: BMI 16.7
[2018-08-13 07:19] VITALS: TEMP 97.5
[2018-08-13] MEDS ORDERED: KETAMINE HCL 500 MG/10 ML VIAL ONE ×2 (07:47→08:01)
[2018-08-13] MEDS ORDERED: ONDANSETRON 4 MG/2 ML VIAL IVPUSH PRN (10:20)
[2018-08-13 11:10] VITALS: BP 101/70; PULSE 76
== END 2018-08-13 10:55 | disposition home or self-care (01) ==
LOC: FECT 05:38
PROVIDERS: ATTEND Psychiatry & Neurology Psychiatry
PROC: GZB4ZZZ Other Electroconvulsive Therapy (ICD-10-PCS; principal; 2018-08-13 07:30)
DX: F32.9 Major depressive disorder, single episode, unspecified (principal)
CPT/HCPCS: 90870; 94760

== ENCOUNTER 2018-08-28 05:56 | Day surgery (SDC) | payer OTHER ==
--- NOTE | 2018-08-28 07:11 | HP ---
CHIEF COMPLAINT: Major depressive disorder PCP: None [facility] HISTORY OF PRESENT ILLNESS: 63 year-old female with a PMH significant for major depressive disorder, began ECT in 2016. She presents today for ECT. Recent Events: * started budesonide ER 9mg QAM PAST MEDICAL HISTORY: Major depressive disorder Collagenous colitis (in remission since October 2016) ETOH abuse (sober 36 years) PAST SURGICAL HISTORY: None reported Social History: Smoking: quit 12/11/17, on Chantix Alcohol: denies Allergies No Known Drug Allergies Allergy (Verified 03/26/18 07:39) Home Medications Medication Instructions Recorded Diazepam 10 mg PO HS 03/30/16 Diazepam 20 mg PO BID 03/30/16 Multivitamins [Multivit ([facility] 1 tab PO HS 03/30/16 Formulary)] Pantoprazole Sodium [Protonix] 40 mg PO DAILY 03/30/16 Potassium Citrate [Potassium 1,080 mg PO HS 03/30/16 Citrate ER] Topiramate 50 mg PO DAILY 03/30/16 Topiramate 100 mg PO HS 03/30/16 Ziprasidone [Geodon -] 80 mg PO BID 03/30/16 Bupropion HCl [Wellbutrin Xl -] 450 mg PO DAILY 04/18/16 Loratadine [Claritin] 10 mg PO DAILY 01/30/17 Vortioxetine Hydrobromide 20 mg PO HS 05/07/18 [Trintellix] Budesonide [Budesonide ER] 9 mg PO DAILY 07/16/18 REVIEW OF SYSTEMS CONSTITUTIONAL: Absent: fever, chills, diaphoresis, generalized weakness, malaise, loss of appetite, weight change HEENT: Absent: rhinorrhea, nasal congestion, throat pain, throat swelling, difficulty swallowing, mouth swelling, ear pain, eye pain, visual changes CARDIOVASCULAR: Absent: chest pain, syncope, palpitations, irregular heart rate, lightheadedness , peripheral edema RESPIRATORY: Absent: cough, shortness of breath, dyspnea with exertion, orthopnea, wheezing, stridor, hemoptysis GASTROINTESTINAL: Absent: abdominal pain, abdominal distension, nausea, vomiting, diarrhea, constipation, melena, hematochezia GENITOURINARY: Absent: dysuria, frequency, urgency, hesitancy, hematuria, flank pain, genital pain MUSCULOSKELETAL: Absent: myalgia, arthralgia, joint swelling, back pain, neck pain SKIN: Absent: rash, itching, pallor HEMATOLOGIC/IMMUNOLOGIC: Absent: easy bleeding, easy bruising, lymphadenopathy, frequent infections ENDOCRINE: Absent: unexplained weight gain, unexplained weight loss, heat intolerance, cold intolerance NEUROLOGIC: Absent: headache, focal weakness or paresthesias, dizziness, unsteady gait, seizure, mental status changes, bladder or bowel incontinence PHYSICAL EXAMINATION GENERAL: Awake, alert, and fully oriented, in no acute distress. HEAD: Normal with no signs of trauma. EYES: Pupils equal, round and reactive to light, sclera anicteric, conjunctiva clear. LUNGS: Breath sounds equal, clear to auscultation bilaterally. No wheezes, and no crackles. No accessory muscle use. HEART: Regular rate and rhythm, normal S1 and S2 ABDOMEN: Soft, nontender, not distended MUSCULOSKELETAL: Normal range of motion at all joints. No bony deformities or tenderness. No CVA tenderness. UPPER EXTREMITIES: 2+ pulses, warm, well-perfused. No cyanosis. No clubbing. No peripheral edema. LOWER EXTREMITIES: 2+ pulses, warm, well-perfused. No calf tenderness. No peripheral edema. NEUROLOGICAL: Cranial nerves II-XII intact. Normal speech. ASSESSMENT/PLAN: 62 year-old female with a PMH significant for major depressive disorder. She presents today for ECT. Cardiac --no cardiac history --Revised Cardiac Risk Index for Pre-Operative Risk: 0 points, 0.4% risk of major cardiac event Pulmonary --no pulmonary history Neurological --no neurological or neurosurgical history; no history of trauma Anesthesia --no reported problems with anesthesia ECT is a low risk procedure. The relative benefits of the planned procedure outweigh the relative risks for this patient at this time. Visit type - Emergency Visit Emergency Visit: No - New Patient This patient is new to me today: Yes Date on this admission: 08/28/18 - Critical Care Critical Care patient: No
[2018-08-28] MEDS ORDERED: ONDANSETRON 4 MG/2 ML VIAL IVPUSH PRN (07:45)
[2018-08-28] MEDS ORDERED: ACETAMINOPHEN 325 MG TABLET (FP) PO PRN (07:45)
[2018-08-28 08:32] VITALS: BMI 17.0
[2018-08-28] MEDS ORDERED: KETAMINE HCL 500 MG/10 ML VIAL ONE (09:20)
[2018-08-28 11:02] VITALS: TEMP 98
[2018-08-28 11:03] VITALS: BP 115/66; PULSE 71
== END 2018-08-28 11:20 | disposition home or self-care (01) ==
LOC: FECT 05:56
PROVIDERS: ATTEND Psychiatry & Neurology Psychiatry
PROC: GZB4ZZZ Other Electroconvulsive Therapy (ICD-10-PCS; principal; 2018-08-28 07:15)
DX: F32.9 Major depressive disorder, single episode, unspecified (principal)
CPT/HCPCS: 90870; 94760

== ENCOUNTER 2018-09-10 05:46 | Day surgery (SDC) | payer OTHER | END 2018-09-10 10:20 | disposition home or self-care (01) | LOC: FECT 05:46 ==

== ENCOUNTER 2018-09-24 05:42 | Day surgery (SDC) | payer OTHER ==
[2018-09-18 14:50] VITALS: BMI 17.0
[2018-09-24] MEDS ORDERED: KETAMINE HCL 500 MG/10 ML VIAL ONE (07:27)
[2018-09-24 09:01] VITALS: TEMP 97.8
[2018-09-24 09:29] VITALS: BP 117/77; PULSE 66
== END 2018-09-24 09:45 | disposition home or self-care (01) ==
LOC: FECT 05:42
PROVIDERS: ATTEND Psychiatry & Neurology Psychiatry
PROC: GZB4ZZZ Other Electroconvulsive Therapy (ICD-10-PCS; principal; 2018-09-24 07:00)
DX: F33.2 Major depressive disorder, recurrent severe without psychotic features (principal)
CPT/HCPCS: 90870; 94760

== ENCOUNTER 2018-10-08 05:42 | Day surgery (SDC) | payer OTHER ==
[2018-09-26 17:13] VITALS: BMI 17.0
[2018-10-08] MEDS ORDERED: LACTATED RINGERS SOLUTION 1,000 ML IV SCH (07:15)
[2018-10-08] MEDS ORDERED: KETAMINE HCL 500 MG/10 ML VIAL ONE (08:03)
[2018-10-08 09:45] VITALS: TEMP 97.6
[2018-10-08 09:51] VITALS: BP 104/64; PULSE 69
[2018-10-08 09:54] LABS: BASO % 0.6 % (0-2.0); EOS % 3.1 % (0-4.5); HEMATOCRIT 38.2 % (32.4-45.2); HEMOGLOBIN 12.3 GM/dl (10.7-15.3); LYMPH % 34.5 % (8-40); MCH 31.9 pg (25.7-33.7); MCHC 32.1 g/dl (32.0-36.0); MEAN CELL VOLUME 99.4 fl (80-96); MONO % 10.4 % (3.8-10.2); NEUT % 51.4 % (42.8-82.8); PLATELET COUNT 193 K/MM3 (134-434); RBC 3.84 M/mm3 (3.60-5.2); RDW 12.4 % (11.6-15.6); WHITE BLOOD COUNT 3.5 K/mm3 (4.0-10.8)
--- NOTE | 2018-10-08 10:00 | HP ---
CHIEF COMPLAINT: Major depressive disorder PCP: None Primary Psychiatrist: Dr. Stewart [place] HISTORY OF PRESENT ILLNESS: 63 year old F with h/o MDD on Geodon/wellbutrin/trintellix and topamax presents for scheduled ECT. She has no complaints post-op Recent Events: d/fredis [facility] PAST MEDICAL HISTORY: Major depressive disorder Collagenous colitis (in remission since October 2016) ETOH abuse (sober 36 years) PAST SURGICAL HISTORY: Left humerus fracture x 1 ectopic x 2 Social History: Smoking:d/fredis tobacco use 12/2017 Alcohol:denies Drugs: denies Allergies: No Known Drug Allergies Allergy (Verified 09/26/18 17:10) HOME MEDICATIONS: Home Medications Medication Instructions Recorded Diazepam 10 mg PO HS 03/30/16 Diazepam 20 mg PO BID 03/30/16 Multivitamins [Multivit ([facility] 1 tab PO HS 03/30/16 Formulary)] Pantoprazole Sodium [Protonix] 40 mg PO DAILY 03/30/16 Potassium Citrate [Potassium 1,080 mg PO HS 03/30/16 Citrate ER] Topiramate 50 mg PO DAILY 03/30/16 Topiramate 100 mg PO HS 03/30/16 Ziprasidone [Geodon -] 80 mg PO BID 03/30/16 Bupropion HCl [Wellbutrin Xl -] 450 mg PO DAILY 04/18/16 Loratadine [Claritin] 10 mg PO DAILY 01/30/17 Vortioxetine Hydrobromide 20 mg PO HS 05/07/18 [Trintellix] REVIEW OF SYSTEMS CONSTITUTIONAL: Absent: fever, chills, diaphoresis, generalized weakness, malaise, loss of appetite, weight change HEENT: Absent: rhinorrhea, nasal congestion, throat pain, throat swelling, difficulty swallowing, mouth swelling, ear pain, eye pain, visual changes CARDIOVASCULAR: Absent: chest pain, syncope, palpitations, irregular heart rate , lightheadedness, peripheral edema RESPIRATORY: Absent: cough, shortness of breath, dyspnea with exertion, orthopnea, wheezing, stridor, hemoptysis GASTROINTESTINAL: Absent: abdominal pain, abdominal distension, nausea, vomiting , diarrhea, constipation, melena, hematochezia GENITOURINARY: Absent: dysuria, frequency, urgency, hesitancy, hematuria, flank pain, genital pain MUSCULOSKELETAL: Absent: myalgia, arthralgia, joint swelling, back pain, neck pain SKIN: Absent: rash, itching, pallor HEMATOLOGIC/IMMUNOLOGIC: Absent: easy bleeding, easy bruising, lymphadenopathy, frequent infections ENDOCRINE:Absent: unexplained weight gain, unexplained weight loss, heat intolerance, cold intolerance NEUROLOGIC: Absent: headache, focal weakness or paresthesias, dizziness, unsteady gait, seizure, mental status changes, bladder or bowel incontinence PHYSICAL EXAMINATION Vital Signs - 24 hr 10/08/18 10/08/18 10/08/18 07:25 08:24 08:30 Temperature 97.5 F L Pulse Rate 69 76 76 Respiratory 18 14 14 Rate Blood Pressure 101/57 L 128/69 104/72 O2 Sat by Pulse 100 100 100 Oximetry (%) 10/08/18 10/08/18 10/08/18 08:35 08:40 08:55 Temperature Pulse Rate 76 76 76 Respiratory 12 12 13 Rate Blood Pressure 111/73 112/70 100/56 L O2 Sat by Pulse 100 100 100 Oximetry (%) 10/08/18 10/08/18 10/08/18 09:03 09:20 09:50 Temperature 97.6 F 97.6 F Pulse Rate 74 66 69 Respiratory 16 18 18 Rate Blood Pressure 92/57 L 105/61 104/64 O2 Sat by Pulse 100 98 99 Oximetry (%) LABS: routine labs drawn today 10/08 reviewed with patient. WBC =3.5 (advised to repeat in 1-2 weeks to observe trend) GENERAL: Awake, lethargic but fully oriented, in no acute distress. HEAD: Normal with no signs of trauma. EYES: Pupils equal, round and reactive to light, sclera anicteric, conjunctiva clear. droopy eyelids LUNGS: Breath sounds equal, clear to auscultation bilaterally. No wheezes, and no crackles. No accessory muscle use. HEART: Regular rate and rhythm, normal S1 and S2 ABDOMEN: Soft, nontender, not distended MUSCULOSKELETAL: Normal range of motion at all joints. No bony deformities or tenderness. No CVA tenderness. UPPER EXTREMITIES: 2+ pulses, warm, well-perfused. No cyanosis. No clubbing. No peripheral edema. LOWER EXTREMITIES: 2+ pulses, warm, well-perfused. No calf tenderness. No peripheral edema. NEUROLOGICAL: laying bed, no neuro deficits, slow pressured speech, normal muscle strength and tone. ASSESSMENT/PLAN: 63 year old F with MDD s/p uneventful ECT and deemed medically stable for discharge home Cardiac --no cardiac history --Revised Cardiac Risk Index for Pre-Operative Risk: 0 points, 0.4% risk of major cardiac event Pulmonary no active issues Neurological --no neurological or neurosurgical history; Anesthesia --no reported problems with anesthesia ECT is a low risk procedure. The relative benefits of the planned procedure outweigh the relative risks for this patient at this time. Problem List - Problem (1) MDD (major depressive disorder) Code(s): F32.9 - MAJOR DEPRESSIVE DISORDER, SINGLE EPISODE, UNSPECIFIED (2) Status post electroconvulsive therapy Code(s): Z98.890 - OTHER SPECIFIED POSTPROCEDURAL STATES Visit type - Emergency Visit Emergency Visit: No - New Patient This patient is new to me today: Yes Date on this admission: 10/08/18 - Critical Care Critical Care patient: No
[2018-10-08 10:02] LABS: ALBUMIN 3.6 g/dl (3.4-5.0); BILIRUBIN,TOTAL 0.4 mg/dl (0.2-1); CALCIUM 8.9 mg/dl (8.5-10); CREATININE 1.2 mg/dl (0.55-1.3); POTASSIUM 4.1 mmol/L (3.5-5.1); TOT PROT 5.4 g/dl (6.4-8.2)
== END 2018-10-08 10:20 | disposition home or self-care (01) ==
LOC: FECT 05:42
PROVIDERS: ATTEND Psychiatry & Neurology Psychiatry
PROC: GZB4ZZZ Other Electroconvulsive Therapy (ICD-10-PCS; principal; 2018-10-08 07:00)
DX: F32.9 Major depressive disorder, single episode, unspecified (principal)
CPT/HCPCS: 36415; 80053; 83735; 85025; 90870; 94760

== ENCOUNTER 2018-10-22 05:43 | Day surgery (SDC) | payer OTHER ==
[2018-10-22] MEDS ORDERED: LACTATED RINGERS SOLUTION 1,000 ML IV SCH (07:00)
[2018-10-22 07:22] VITALS: BMI 17.0
[2018-10-22] MEDS ORDERED: KETAMINE HCL 500 MG/10 ML VIAL ONE (07:40)
[2018-10-22 09:54] VITALS: TEMP 97.6
[2018-10-22 10:00] VITALS: BP 104/61; PULSE 69
== END 2018-10-22 10:00 | disposition home or self-care (01) ==
LOC: FECT 05:43
PROVIDERS: ATTEND Psychiatry & Neurology Psychiatry
PROC: GZB4ZZZ Other Electroconvulsive Therapy (ICD-10-PCS; principal; 2018-10-22 07:15)
DX: F33.2 Major depressive disorder, recurrent severe without psychotic features (principal)
CPT/HCPCS: 90870; 94760

== ENCOUNTER 2018-11-06 05:36 | Day surgery (SDC) | payer OTHER ==
[2018-10-30 14:49] VITALS: BMI 17.0
[2018-11-06] MEDS ORDERED: KETAMINE HCL 500 MG/10 ML VIAL ONE (07:47)
[2018-11-06 10:13] VITALS: TEMP 98.2
[2018-11-06 10:15] VITALS: BP 108/78; PULSE 69
== END 2018-11-06 10:30 | disposition home or self-care (01) ==
LOC: FECT 05:36
PROVIDERS: ATTEND Psychiatry & Neurology Psychiatry
PROC: GZB4ZZZ Other Electroconvulsive Therapy (ICD-10-PCS; principal; 2018-11-06 07:15)
DX: F32.9 Major depressive disorder, single episode, unspecified (principal)
CPT/HCPCS: 90870; 94760

== ENCOUNTER 2018-11-19 05:44 | Day surgery (SDC) | payer OTHER ==
[2018-11-19 07:22] VITALS: TEMP 97.6; BMI 16.7
[2018-11-19] MEDS ORDERED: KETAMINE HCL 500 MG/10 ML VIAL ONE (07:51)
[2018-11-19 11:11] VITALS: BP 112/70; PULSE 66
--- NOTE | 2018-11-19 18:17 | HP ---
CHIEF COMPLAINT: Major depressive disorder PCP: None [facility] HISTORY OF PRESENT ILLNESS: 63 year-old female with a PMH significant for major depressive disorder, began ECT in 2016. She presents today for ECT. Recent Events: * none reported PAST MEDICAL HISTORY: Major depressive disorder Collagenous colitis (in remission since October 2016) ETOH abuse (sober 36 years) PAST SURGICAL HISTORY: Left humerus fracture x 1 ectopic x 2 Family history: non-contributory Social History: lives with son Smoking:d/fredis tobacco use 12/2017 Alcohol:denies Drugs: denies Allergies No Known Drug Allergies Allergy (Verified 11/14/18 07:20) HOME MEDICATIONS: Home Medications Medication Instructions Recorded Diazepam 10 mg PO HS 03/30/16 Diazepam 20 mg PO BID 03/30/16 Multivitamins [Multivit ([facility] 1 tab PO HS 03/30/16 Formulary)] Pantoprazole Sodium [Protonix] 40 mg PO DAILY 03/30/16 Potassium Citrate [Potassium 1,080 mg PO HS 03/30/16 Citrate ER] Topiramate 50 mg PO DAILY 03/30/16 Topiramate 100 mg PO HS 03/30/16 Ziprasidone [Geodon -] 80 mg PO BID 03/30/16 Bupropion HCl [Wellbutrin Xl -] 450 mg PO DAILY 04/18/16 Loratadine [Claritin] 10 mg PO DAILY 01/30/17 Vortioxetine Hydrobromide 20 mg PO HS 11/06/18 [Trintellix] REVIEW OF SYSTEMS CONSTITUTIONAL: Absent: fever, chills, diaphoresis, generalized weakness, malaise, loss of appetite, weight change HEENT: Absent: rhinorrhea, nasal congestion, throat pain, throat swelling, difficulty swallowing, mouth swelling, ear pain, eye pain, visual changes CARDIOVASCULAR: Absent: chest pain, syncope, palpitations, irregular heart rate, lightheadedness , peripheral edema RESPIRATORY: Absent: cough, shortness of breath, dyspnea with exertion, orthopnea, wheezing, stridor, hemoptysis GASTROINTESTINAL: Absent: abdominal pain, abdominal distension, nausea, vomiting, diarrhea, constipation, melena, hematochezia GENITOURINARY: Absent: dysuria, frequency, urgency, hesitancy, hematuria, flank pain, genital pain MUSCULOSKELETAL: Absent: myalgia, arthralgia, joint swelling, back pain, neck pain SKIN: Absent: rash, itching, pallor HEMATOLOGIC/IMMUNOLOGIC: Absent: easy bleeding, easy bruising, lymphadenopathy, frequent infections ENDOCRINE: Absent: unexplained weight gain, unexplained weight loss, heat intolerance, cold intolerance NEUROLOGIC: Absent: headache, focal weakness or paresthesias, dizziness, unsteady gait, seizure, mental status changes, bladder or bowel incontinence PHYSICAL EXAMINATION Vital Signs - 24 hr 11/19/18 11/19/18 11/19/18 07:18 08:23 08:28 Temperature 97.6 F Pulse Rate 66 76 74 Respiratory 18 17 15 Rate Blood Pressure 123/76 105/73 97/67 O2 Sat by Pulse 99 100 100 Oximetry (%) 11/19/18 11/19/18 11/19/18 08:33 08:38 08:45 Temperature Pulse Rate 70 75 72 Respiratory 12 14 19 Rate Blood Pressure 97/73 103/68 104/70 O2 Sat by Pulse 100 100 100 Oximetry (%) 11/19/18 11/19/18 11/19/18 09:00 09:05 09:35 Temperature 97.6 F 97.6 F Pulse Rate 73 68 66 Respiratory 18 18 18 Rate Blood Pressure 101/73 110/72 112/70 O2 Sat by Pulse 99 98 98 Oximetry (%) 11/19/18 10:15 Temperature 97.6 F Pulse Rate 66 Respiratory 18 Rate Blood Pressure 112/70 O2 Sat by Pulse Oximetry (%) GENERAL: Awake, alert, and fully oriented, in no acute distress. HEAD: Normal with no signs of trauma. EYES: Pupils equal, round and reactive to light, sclera anicteric, conjunctiva clear. LUNGS: Breath sounds equal, clear to auscultation bilaterally. No wheezes, and no crackles. No accessory muscle use. HEART: Regular rate and rhythm, normal S1 and S2 ABDOMEN: Soft, nontender, not distended MUSCULOSKELETAL: Normal range of motion at all joints. No bony deformities or tenderness. No CVA tenderness. UPPER EXTREMITIES: 2+ pulses, warm, well-perfused. No cyanosis. No clubbing. No peripheral edema. LOWER EXTREMITIES: 2+ pulses, warm, well-perfused. No calf tenderness. No peripheral edema. NEUROLOGICAL: Cranial nerves II-XII intact. Normal speech. ASSESSMENT/PLAN: 62 year-old female with a PMH significant for major depressive disorder. She presents today for ECT. Cardiac --no cardiac history --Revised Cardiac Risk Index for Pre-Operative Risk: 0 points, 0.4% risk of major cardiac event Pulmonary --no pulmonary history Neurological --no neurological or neurosurgical history; no history of trauma Anesthesia --no reported problems with anesthesia ECT is a low risk procedure. The relative benefits of the planned procedure outweigh the relative risks for this patient at this time. Visit type - Emergency Visit Emergency Visit: No - New Patient This patient is new to me today: Yes Date on this admission: 11/19/18 - Critical Care Critical Care patient: No
== END 2018-11-19 10:15 | disposition home or self-care (01) ==
LOC: FECT 05:44
PROVIDERS: ATTEND Psychiatry & Neurology Psychiatry
PROC: GZB4ZZZ Other Electroconvulsive Therapy (ICD-10-PCS; principal; 2018-11-19 07:15)
DX: F33.2 Major depressive disorder, recurrent severe without psychotic features (principal)
CPT/HCPCS: 90870; 94760

== ENCOUNTER 2018-12-04 05:57 | Day surgery (SDC) | payer OTHER ==
[2018-12-04 07:44] VITALS: BMI 17.6
[2018-12-04] MEDS ORDERED: KETAMINE HCL 500 MG/10 ML VIAL ONE (08:22)
[2018-12-04 09:43] VITALS: TEMP 97.6
[2018-12-04] MEDS ORDERED: ONDANSETRON 4 MG/2 ML VIAL IVPUSH PRN (09:49)
[2018-12-04] MEDS ORDERED: LACTATED RINGERS SOLUTION 1,000 ML IV SCH (10:00)
[2018-12-04 10:32] VITALS: BP 105/65; PULSE 71
== END 2018-12-04 10:45 | disposition home or self-care (01) ==
LOC: FECT 05:57
PROVIDERS: ATTEND Psychiatry & Neurology Psychiatry
PROC: GZB4ZZZ Other Electroconvulsive Therapy (ICD-10-PCS; principal; 2018-12-04 07:15)
DX: F32.9 Major depressive disorder, single episode, unspecified (principal)
CPT/HCPCS: 90870; 94760

== ENCOUNTER 2018-12-17 05:35 | Day surgery (SDC) | payer OTHER | END 2018-12-17 10:35 | disposition home or self-care (01) | LOC: FECT 05:35 ==

== ENCOUNTER 2018-12-31 05:43 | Day surgery (SDC) | payer OTHER ==
[2018-12-31 07:29] VITALS: BMI 18.0
--- NOTE | 2018-12-31 07:47 | HP ---
CHIEF COMPLAINT: Major depressive disorder PCP: None [facility] HISTORY OF PRESENT ILLNESS: 63 year-old female with a PMH significant for major depressive disorder, began ECT in 2016. She presents today for ECT. Recent Events: * none reported PAST MEDICAL HISTORY: Major depressive disorder Collagenous colitis (in remission since October 2016) ETOH abuse (sober 36 years) PAST SURGICAL HISTORY: Left humerus fracture x 1 ectopic x 2 Family history: non-contributory Social History: lives with son Smoking:d/fredis tobacco use 12/2017 Alcohol:denies Drugs: denies Allergies No Known Drug Allergies Allergy (Verified 11/14/18 07:20) HOME MEDICATIONS: Home Medications Medication Instructions Recorded Diazepam 10 mg PO HS 03/30/16 Diazepam 20 mg PO BID 03/30/16 Multivitamins [Multivit ([facility] 1 tab PO HS 03/30/16 Formulary)] Pantoprazole Sodium [Protonix] 40 mg PO DAILY 03/30/16 Potassium Citrate [Potassium 1,080 mg PO HS 03/30/16 Citrate ER] Topiramate 50 mg PO DAILY 03/30/16 Topiramate 100 mg PO HS 03/30/16 Ziprasidone [Geodon -] 80 mg PO BID 03/30/16 Bupropion HCl [Wellbutrin Xl -] 450 mg PO DAILY 04/18/16 Loratadine [Claritin] 10 mg PO DAILY 01/30/17 Vortioxetine Hydrobromide 20 mg PO HS 11/06/18 [Trintellix] REVIEW OF SYSTEMS CONSTITUTIONAL: Absent: fever, chills, diaphoresis, generalized weakness, malaise, loss of appetite, weight change HEENT: Absent: rhinorrhea, nasal congestion, throat pain, throat swelling, difficulty swallowing, mouth swelling, ear pain, eye pain, visual changes CARDIOVASCULAR: Absent: chest pain, syncope, palpitations, irregular heart rate, lightheadedness , peripheral edema RESPIRATORY: Absent: cough, shortness of breath, dyspnea with exertion, orthopnea, wheezing, stridor, hemoptysis GASTROINTESTINAL: Absent: abdominal pain, abdominal distension, nausea, vomiting, diarrhea, constipation, melena, hematochezia GENITOURINARY: Absent: dysuria, frequency, urgency, hesitancy, hematuria, flank pain, genital pain MUSCULOSKELETAL: Absent: myalgia, arthralgia, joint swelling, back pain, neck pain SKIN: Absent: rash, itching, pallor HEMATOLOGIC/IMMUNOLOGIC: Absent: easy bleeding, easy bruising, lymphadenopathy, frequent infections ENDOCRINE: Absent: unexplained weight gain, unexplained weight loss, heat intolerance, cold intolerance NEUROLOGIC: Absent: headache, focal weakness or paresthesias, dizziness, unsteady gait, seizure, mental status changes, bladder or bowel incontinence PHYSICAL EXAMINATION Vital Signs - 24 hr 12/31/18 07:27 Temperature 97.4 F L Pulse Rate 75 Respiratory 18 Rate Blood Pressure 119/72 O2 Sat by Pulse 98 Oximetry (%) GENERAL: Awake, alert, and fully oriented, in no acute distress. HEAD: Normal with no signs of trauma. EYES: Pupils equal, round and reactive to light, sclera anicteric, conjunctiva clear. LUNGS: Breath sounds equal, clear to auscultation bilaterally. No wheezes, and no crackles. No accessory muscle use. HEART: Regular rate and rhythm, normal S1 and S2 ABDOMEN: Soft, nontender, not distended MUSCULOSKELETAL: Normal range of motion at all joints. No bony deformities or tenderness. No CVA tenderness. UPPER EXTREMITIES: 2+ pulses, warm, well-perfused. No cyanosis. No clubbing. No peripheral edema. LOWER EXTREMITIES: 2+ pulses, warm, well-perfused. No calf tenderness. No peripheral edema. NEUROLOGICAL: Cranial nerves II-XII intact. Normal speech. ASSESSMENT/PLAN: 62 year-old female with a PMH significant for major depressive disorder. She presents today for ECT. Cardiac --no cardiac history --Revised Cardiac Risk Index for Pre-Operative Risk: 0 points, 0.4% risk of major cardiac event Pulmonary --no pulmonary history Neurological --no neurological or neurosurgical history; no history of trauma Anesthesia --no reported problems with anesthesia ECT is a low risk procedure. The relative benefits of the planned procedure outweigh the relative risks for this patient at this time. Visit type - Emergency Visit Emergency Visit: No - New Patient This patient is new to me today: Yes Date on this admission: 12/31/18 - Critical Care Critical Care patient: No
[2018-12-31] MEDS ORDERED: KETAMINE HCL 500 MG/10 ML VIAL ONE (08:06)
[2018-12-31 09:17] VITALS: TEMP 97.8
[2018-12-31 10:41] VITALS: BP 110/72; PULSE 78
== END 2018-12-31 10:30 | disposition home or self-care (01) ==
LOC: FECT 05:43
PROVIDERS: ATTEND Psychiatry & Neurology Psychiatry
PROC: GZB4ZZZ Other Electroconvulsive Therapy (ICD-10-PCS; principal; 2018-12-31 07:15)
DX: F33.2 Major depressive disorder, recurrent severe without psychotic features (principal)
CPT/HCPCS: 90870; 94760

== ENCOUNTER 2019-01-14 05:39 | Day surgery (SDC) | payer OTHER ==
[2019-01-14 07:04] VITALS: BMI 18.2
[2019-01-14] MEDS ORDERED: KETAMINE HCL 500 MG/10 ML VIAL ONE (07:36)
[2019-01-14 08:54] VITALS: TEMP 97.7
[2019-01-14 09:41] VITALS: BP 109/73; PULSE 74
== END 2019-01-14 09:45 | disposition home or self-care (01) ==
LOC: FECT 05:39
PROVIDERS: ATTEND Psychiatry & Neurology Psychiatry
PROC: GZB4ZZZ Other Electroconvulsive Therapy (ICD-10-PCS; principal; 2019-01-14 07:00)
DX: F33.2 Major depressive disorder, recurrent severe without psychotic features (principal)
CPT/HCPCS: 90870; 94760

== ENCOUNTER 2019-01-28 05:46 | Day surgery (SDC) | payer OTHER ==
[2019-01-28 07:08] VITALS: TEMP 97.6; BMI 18.4
[2019-01-28] MEDS ORDERED: KETAMINE HCL 500 MG/10 ML VIAL ONE (07:54)
[2019-01-28 10:27] VITALS: BP 124/72; PULSE 82
== END 2019-01-28 10:00 | disposition home or self-care (01) ==
LOC: FECT 05:46
PROVIDERS: ATTEND Psychiatry & Neurology Psychiatry
PROC: GZB4ZZZ Other Electroconvulsive Therapy (ICD-10-PCS; principal; 2019-01-28 07:30)
DX: F33.2 Major depressive disorder, recurrent severe without psychotic features (principal)
CPT/HCPCS: 90870; 94760

== ENCOUNTER 2019-02-11 06:44 | Day surgery (SDC) | payer OTHER ==
--- NOTE | 2019-02-11 07:16 | HP ---
CHIEF COMPLAINT: Major depressive disorder PCP: None [facility] [place] HISTORY OF PRESENT ILLNESS: 63 year-old female with a PMH significant for major depressive disorder, began ECT in 2016. She presents today for ECT. Recent Events: * none reported PAST MEDICAL HISTORY: Major depressive disorder Collagenous colitis (in remission since October 2016) ETOH abuse (sober 36 years) PAST SURGICAL HISTORY: Left humerus fracture x 1 ectopic x 2 Family history: non-contributory Social History: lives with son Smoking:d/fredis tobacco use 12/2017 Alcohol:denies Drugs: denies Allergies No Known Drug Allergies Allergy (Verified 11/14/18 07:20) HOME MEDICATIONS: Home Medications Medication Instructions Recorded Diazepam 10 mg PO HS 03/30/16 Diazepam 20 mg PO BID 03/30/16 Multivitamins [Multivit ([facility] 1 tab PO HS 03/30/16 Formulary)] Pantoprazole Sodium [Protonix] 40 mg PO DAILY 03/30/16 Potassium Citrate [Potassium 1,080 mg PO HS 03/30/16 Citrate ER] Topiramate 50 mg PO DAILY 03/30/16 Topiramate 100 mg PO HS 03/30/16 Ziprasidone [Geodon -] 80 mg PO BID 03/30/16 Bupropion HCl [Wellbutrin Xl -] 450 mg PO DAILY 04/18/16 Loratadine [Claritin] 10 mg PO DAILY 01/30/17 Vortioxetine Hydrobromide 20 mg PO HS 11/06/18 [Trintellix] Desloratadine/Pseudoephedrine 1 each PO ONCE 02/11/19 [Clarinex-D 12 Hour Tablet] REVIEW OF SYSTEMS CONSTITUTIONAL: Absent: fever, chills, diaphoresis, generalized weakness, malaise, loss of appetite, weight change HEENT: Absent: rhinorrhea, nasal congestion, throat pain, throat swelling, difficulty swallowing, mouth swelling, ear pain, eye pain, visual changes CARDIOVASCULAR: Absent: chest pain, syncope, palpitations, irregular heart rate, lightheadedness , peripheral edema RESPIRATORY: Absent: cough, shortness of breath, dyspnea with exertion, orthopnea, wheezing, stridor, hemoptysis GASTROINTESTINAL: Absent: abdominal pain, abdominal distension, nausea, vomiting, diarrhea, constipation, melena, hematochezia GENITOURINARY: Absent: dysuria, frequency, urgency, hesitancy, hematuria, flank pain, genital pain MUSCULOSKELETAL: Absent: myalgia, arthralgia, joint swelling, back pain, neck pain SKIN: Absent: rash, itching, pallor HEMATOLOGIC/IMMUNOLOGIC: Absent: easy bleeding, easy bruising, lymphadenopathy, frequent infections ENDOCRINE: Absent: unexplained weight gain, unexplained weight loss, heat intolerance, cold intolerance NEUROLOGIC: Absent: headache, focal weakness or paresthesias, dizziness, unsteady gait, seizure, mental status changes, bladder or bowel incontinence PHYSICAL EXAMINATION Vital Signs Temperature 97.9 F 02/11/19 09:50 Pulse Rate 75 02/11/19 09:50 Respiratory Rate 18 02/11/19 09:50 Blood Pressure 102/71 02/11/19 09:50 O2 Sat by Pulse Oximetry (%) 99 02/11/19 09:30 GENERAL: Awake, alert, and fully oriented, in no acute distress. HEAD: Normal with no signs of trauma. EYES: Pupils equal, round and reactive to light, sclera anicteric, conjunctiva clear. LUNGS: Breath sounds equal, clear to auscultation bilaterally. No wheezes, and no crackles. No accessory muscle use. HEART: Regular rate and rhythm, normal S1 and S2 ABDOMEN: Soft, nontender, not distended MUSCULOSKELETAL: Normal range of motion at all joints. No bony deformities or tenderness. No CVA tenderness. UPPER EXTREMITIES: 2+ pulses, warm, well-perfused. No cyanosis. No clubbing. No peripheral edema. LOWER EXTREMITIES: 2+ pulses, warm, well-perfused. No calf tenderness. No peripheral edema. NEUROLOGICAL: Cranial nerves II-XII intact. Normal speech. ASSESSMENT/PLAN: 62 year-old female with a PMH significant for major depressive disorder. She presents today for ECT. Cardiac --no cardiac history --Revised Cardiac Risk Index for Pre-Operative Risk: 0 points, 0.4% risk of major cardiac event Pulmonary --no pulmonary history Neurological --no neurological or neurosurgical history; no history of trauma Anesthesia --no reported problems with anesthesia ECT is a low risk procedure. The relative benefits of the planned procedure outweigh the relative risks for this patient at this time. Visit type - Emergency Visit Emergency Visit: No - New Patient This patient is new to me today: Yes Date on this admission: 02/11/19 - Critical Care Critical Care patient: No
[2019-02-11 07:21] VITALS: BMI 18.4
[2019-02-11] MEDS ORDERED: KETAMINE HCL 500 MG/10 ML VIAL ONE (07:58)
[2019-02-11 09:08] VITALS: TEMP 97.9
[2019-02-11 09:38] VITALS: BP 102/71; PULSE 75
== END 2019-02-11 09:50 | disposition home or self-care (01) ==
LOC: FECT 06:44
PROVIDERS: ATTEND Psychiatry & Neurology Psychiatry
PROC: GZB4ZZZ Other Electroconvulsive Therapy (ICD-10-PCS; principal; 2019-02-11 07:00)
DX: F33.2 Major depressive disorder, recurrent severe without psychotic features (principal)
CPT/HCPCS: 90870; 94760

== ENCOUNTER 2019-02-25 05:48 | Day surgery (SDC) | payer OTHER ==
[2019-02-25 07:44] VITALS: BMI 17.9
[2019-02-25 09:34] VITALS: TEMP 97.8
[2019-02-25 10:05] VITALS: BP 112/70; PULSE 77
== END 2019-02-25 10:30 | disposition home or self-care (01) ==
LOC: FECT 05:48
PROVIDERS: ATTEND Psychiatry & Neurology Psychiatry
PROC: GZB4ZZZ Other Electroconvulsive Therapy (ICD-10-PCS; principal; 2019-02-25 07:30)
DX: F33.2 Major depressive disorder, recurrent severe without psychotic features (principal)
CPT/HCPCS: 90870; 94760

== ENCOUNTER 2019-03-11 07:14 | Day surgery (SDC) | payer OTHER ==
[2019-03-11 07:46] VITALS: BMI 17.8
[2019-03-11] MEDS ORDERED: ONDANSETRON 4 MG/2 ML VIAL IVPUSH PRN (07:51)
[2019-03-11] MEDS ORDERED: KETAMINE HCL 500 MG/10 ML VIAL ONE (07:55)
[2019-03-11] MEDS ORDERED: LACTATED RINGERS SOLUTION 1,000 ML IV SCH (08:00)
[2019-03-11 10:07] VITALS: TEMP 97.8
[2019-03-11 10:08] VITALS: BP 115/77; PULSE 64
== END 2019-03-11 10:20 | disposition home or self-care (01) ==
LOC: FECT 07:14
PROVIDERS: ATTEND Psychiatry & Neurology Psychiatry
PROC: GZB4ZZZ Other Electroconvulsive Therapy (ICD-10-PCS; principal; 2019-03-11 07:45)
DX: F32.9 Major depressive disorder, single episode, unspecified (principal)
CPT/HCPCS: 90870; 94760

== ENCOUNTER 2019-03-25 05:43 | Day surgery (SDC) | payer OTHER ==
[2019-03-25] MEDS ORDERED: LACTATED RINGERS SOLUTION 1,000 ML IV SCH (07:00)
[2019-03-25 08:20] VITALS: BMI 17.8
[2019-03-25] MEDS ORDERED: KETAMINE HCL 500 MG/10 ML VIAL ONE (09:34)
[2019-03-25 11:44] VITALS: BP 121/61; PULSE 80; TEMP 98
--- NOTE | 2019-04-02 17:17 | HP ---
CHIEF COMPLAINT: Major depressive disorder PCP: None [facility] [place] HISTORY OF PRESENT ILLNESS: 63 year-old female with a PMH significant for major depressive disorder, began ECT in 2016. She presents today for ECT. Recent Events: * none reported PAST MEDICAL HISTORY: Major depressive disorder Collagenous colitis (in remission since October 2016) ETOH abuse (sober 36 years) PAST SURGICAL HISTORY: Left humerus fracture x 1 ectopic x 2 Family history: non-contributory Social History: lives with son Smoking:d/fredis tobacco use 12/2017 Alcohol:denies Drugs: denies Allergies No Known Drug Allergies Allergy (Verified 11/14/18 07:20) HOME MEDICATIONS: Home Medications Medication Instructions Recorded Diazepam 10 mg PO HS 03/30/16 Diazepam 20 mg PO BID 03/30/16 Multivitamins [Multivit ([facility] 1 tab PO HS 03/30/16 Formulary)] Pantoprazole Sodium [Protonix] 40 mg PO DAILY 03/30/16 Potassium Citrate [Potassium 1,080 mg PO HS 03/30/16 Citrate ER] Topiramate 50 mg PO DAILY 03/30/16 Topiramate 100 mg PO HS 03/30/16 Ziprasidone [Geodon -] 80 mg PO BID 03/30/16 Loratadine [Claritin] 10 mg PO DAILY 01/30/17 Vortioxetine Hydrobromide 20 mg PO HS 11/06/18 [Trintellix] REVIEW OF SYSTEMS CONSTITUTIONAL: Absent: fever, chills, diaphoresis, generalized weakness, malaise, loss of appetite, weight change HEENT: Absent: rhinorrhea, nasal congestion, throat pain, throat swelling, difficulty swallowing, mouth swelling, ear pain, eye pain, visual changes CARDIOVASCULAR: Absent: chest pain, syncope, palpitations, irregular heart rate, lightheadedness , peripheral edema RESPIRATORY: Absent: cough, shortness of breath, dyspnea with exertion, orthopnea, wheezing, stridor, hemoptysis GASTROINTESTINAL: Absent: abdominal pain, abdominal distension, nausea, vomiting, diarrhea, constipation, melena, hematochezia GENITOURINARY: Absent: dysuria, frequency, urgency, hesitancy, hematuria, flank pain, genital pain MUSCULOSKELETAL: Absent: myalgia, arthralgia, joint swelling, back pain, neck pain SKIN: Absent: rash, itching, pallor HEMATOLOGIC/IMMUNOLOGIC: Absent: easy bleeding, easy bruising, lymphadenopathy, frequent infections ENDOCRINE: Absent: unexplained weight gain, unexplained weight loss, heat intolerance, cold intolerance NEUROLOGIC: Absent: headache, focal weakness or paresthesias, dizziness, unsteady gait, seizure, mental status changes, bladder or bowel incontinence PHYSICAL EXAMINATION Vital Signs Temperature 98 F 03/25/19 11:45 Pulse Rate 80 03/25/19 11:45 Respiratory Rate 18 03/25/19 11:45 Blood Pressure 121/61 03/25/19 11:45 O2 Sat by Pulse Oximetry (%) 97 03/25/19 11:05 GENERAL: Awake, alert, and fully oriented, in no acute distress. HEAD: Normal with no signs of trauma. EYES: Pupils equal, round and reactive to light, sclera anicteric, conjunctiva clear. LUNGS: Breath sounds equal, clear to auscultation bilaterally. No wheezes, and no crackles. No accessory muscle use. HEART: Regular rate and rhythm, normal S1 and S2 ABDOMEN: Soft, nontender, not distended MUSCULOSKELETAL: Normal range of motion at all joints. No bony deformities or tenderness. No CVA tenderness. UPPER EXTREMITIES: 2+ pulses, warm, well-perfused. No cyanosis. No clubbing. No peripheral edema. LOWER EXTREMITIES: 2+ pulses, warm, well-perfused. No calf tenderness. No peripheral edema. NEUROLOGICAL: Cranial nerves II-XII intact. Normal speech. ASSESSMENT/PLAN: 63 year-old female with a PMH significant for major depressive disorder. She presents today for ECT. Cardiac --no cardiac history --Revised Cardiac Risk Index for Pre-Operative Risk: 0 points, 0.4% risk of major cardiac event Pulmonary --no pulmonary history Neurological --no neurological or neurosurgical history; no history of trauma Anesthesia --no reported problems with anesthesia ECT is a low risk procedure. The relative benefits of the planned procedure outweigh the relative risks for this patient at this time. Visit type - Emergency Visit Emergency Visit: No - New Patient This patient is new to me today: Yes Date on this admission: 04/02/19 - Critical Care Critical Care patient: No
== END 2019-03-25 11:45 | disposition home or self-care (01) ==
LOC: FECT 05:43
PROVIDERS: ATTEND Psychiatry & Neurology Psychiatry
PROC: GZB4ZZZ Other Electroconvulsive Therapy (ICD-10-PCS; principal; 2019-03-25 07:45)
DX: F33.2 Major depressive disorder, recurrent severe without psychotic features (principal)
CPT/HCPCS: 90870; 94760

== ENCOUNTER 2019-04-08 05:42 | Day surgery (SDC) | payer OTHER ==
[2019-04-08 07:03] VITALS: BMI 17.8
[2019-04-08] MEDS ORDERED: KETAMINE HCL 500 MG/10 ML VIAL ONE (07:30)
[2019-04-08] MEDS ORDERED: ONDANSETRON 4 MG/2 ML VIAL IVPUSH PRN (07:57)
[2019-04-08] MEDS ORDERED: LACTATED RINGERS SOLUTION 1,000 ML IV SCH (08:00)
[2019-04-08 08:39] VITALS: TEMP 97.7
[2019-04-08 09:15] VITALS: BP 114/74; PULSE 69
== END 2019-04-08 09:55 | disposition home or self-care (01) ==
LOC: FECT 05:42
PROVIDERS: ATTEND Psychiatry & Neurology Psychiatry
PROC: GZB4ZZZ Other Electroconvulsive Therapy (ICD-10-PCS; principal; 2019-04-08 07:00)
DX: F33.2 Major depressive disorder, recurrent severe without psychotic features (principal)
CPT/HCPCS: 90870; 94760

== ENCOUNTER 2019-04-23 05:39 | Day surgery (SDC) | payer OTHER ==
[2019-04-15 17:44] VITALS: BMI 17.8
--- NOTE | 2019-04-23 07:49 | HP ---
CHIEF COMPLAINT: Major depressive disorder PCP: None [facility] [place] HISTORY OF PRESENT ILLNESS: 63 year-old female with a PMH significant for major depressive disorder, began ECT in 2016. She presents today for ECT. Recent Events: * none reported PAST MEDICAL HISTORY: Major depressive disorder Collagenous colitis (in remission since October 2016) ETOH abuse (sober 36 years) PAST SURGICAL HISTORY: Left humerus fracture x 1 ectopic x 2 Family history: non-contributory Social History: lives with son Smoking:d/fredis tobacco use 12/2017 Alcohol:denies Drugs: denies Allergies No Known Drug Allergies Allergy (Verified 04/15/19 17:36) HOME MEDICATIONS: Home Medications Medication Instructions Recorded Diazepam 10 mg PO HS 03/30/16 Diazepam 20 mg PO BID 03/30/16 Multivitamins [Multivit ([facility] 1 tab PO HS 03/30/16 Formulary)] Pantoprazole Sodium [Protonix] 40 mg PO DAILY 03/30/16 Potassium Citrate [Potassium 1,080 mg PO HS 03/30/16 Citrate ER] Topiramate 50 mg PO DAILY 03/30/16 Topiramate 100 mg PO HS 03/30/16 Ziprasidone [Geodon -] 80 mg PO BID 03/30/16 Loratadine [Claritin] 10 mg PO DAILY 01/30/17 Vortioxetine Hydrobromide 20 mg PO HS 11/06/18 [Trintellix] REVIEW OF SYSTEMS CONSTITUTIONAL: Absent: fever, chills, diaphoresis, generalized weakness, malaise, loss of appetite, weight change HEENT: Absent: rhinorrhea, nasal congestion, throat pain, throat swelling, difficulty swallowing, mouth swelling, ear pain, eye pain, visual changes CARDIOVASCULAR: Absent: chest pain, syncope, palpitations, irregular heart rate, lightheadedness , peripheral edema RESPIRATORY: Absent: cough, shortness of breath, dyspnea with exertion, orthopnea, wheezing, stridor, hemoptysis GASTROINTESTINAL: Absent: abdominal pain, abdominal distension, nausea, vomiting, diarrhea, constipation, melena, hematochezia GENITOURINARY: Absent: dysuria, frequency, urgency, hesitancy, hematuria, flank pain, genital pain MUSCULOSKELETAL: Absent: myalgia, arthralgia, joint swelling, back pain, neck pain SKIN: Absent: rash, itching, pallor HEMATOLOGIC/IMMUNOLOGIC: Absent: easy bleeding, easy bruising, lymphadenopathy, frequent infections ENDOCRINE: Absent: unexplained weight gain, unexplained weight loss, heat intolerance, cold intolerance NEUROLOGIC: Absent: headache, focal weakness or paresthesias, dizziness, unsteady gait, seizure, mental status changes, bladder or bowel incontinence PHYSICAL EXAMINATION Vital Signs Temperature 97.8 F 04/23/19 11:25 Pulse Rate 72 04/23/19 11:25 Respiratory Rate 16 04/23/19 11:25 Blood Pressure 112/69 04/23/19 11:25 O2 Sat by Pulse Oximetry (%) 97 04/23/19 11:25 GENERAL: Awake, alert, and fully oriented, in no acute distress. HEAD: Normal with no signs of trauma. EYES: Pupils equal, round and reactive to light, sclera anicteric, conjunctiva clear. LUNGS: Breath sounds equal, clear to auscultation bilaterally. No wheezes, and no crackles. No accessory muscle use. HEART: Regular rate and rhythm, normal S1 and S2 ABDOMEN: Soft, nontender, not distended MUSCULOSKELETAL: Normal range of motion at all joints. No bony deformities or tenderness. No CVA tenderness. UPPER EXTREMITIES: 2+ pulses, warm, well-perfused. No cyanosis. No clubbing. No peripheral edema. LOWER EXTREMITIES: 2+ pulses, warm, well-perfused. No calf tenderness. No peripheral edema. NEUROLOGICAL: Cranial nerves II-XII intact. Normal speech. ASSESSMENT/PLAN: 63 year-old female with a PMH significant for major depressive disorder. She presents today for ECT. Cardiac --no cardiac history --Revised Cardiac Risk Index for Pre-Operative Risk: 0 points, 0.4% risk of major cardiac event Pulmonary --no pulmonary history Neurological --no neurological or neurosurgical history; no history of trauma Anesthesia --no reported problems with anesthesia ECT is a low risk procedure. The relative benefits of the planned procedure outweigh the relative risks for this patient at this time. Visit type - Emergency Visit Emergency Visit: No - New Patient This patient is new to me today: Yes Date on this admission: 04/25/19 - Critical Care Critical Care patient: No
[2019-04-23] MEDS ORDERED: KETAMINE HCL 500 MG/10 ML VIAL ONE (08:46)
[2019-04-23 10:17] VITALS: TEMP 97.8
[2019-04-23 10:48] VITALS: BP 112/69; PULSE 72
== END 2019-04-23 11:35 | disposition home or self-care (01) ==
LOC: FECT 05:39
PROVIDERS: ATTEND Psychiatry & Neurology Psychiatry
PROC: GZB4ZZZ Other Electroconvulsive Therapy (ICD-10-PCS; principal; 2019-04-23 07:15)
DX: F33.2 Major depressive disorder, recurrent severe without psychotic features (principal)
CPT/HCPCS: 90870; 94760

== ENCOUNTER 2019-05-06 05:39 | Day surgery (SDC) | payer OTHER ==
[2019-04-25 11:31] VITALS: BMI 17.8
[2019-05-06] MEDS ORDERED: LACTATED RINGERS SOLUTION 1,000 ML IV SCH (07:00)
[2019-05-06] MEDS ORDERED: KETAMINE HCL 500 MG/10 ML VIAL ONE (07:44)
[2019-05-06 08:59] VITALS: TEMP 97.5
[2019-05-06 10:06] VITALS: BP 110/71; PULSE 71
== END 2019-05-06 10:05 | disposition home or self-care (01) ==
LOC: FECT 05:39
PROVIDERS: ATTEND Psychiatry & Neurology Psychiatry
PROC: GZB4ZZZ Other Electroconvulsive Therapy (ICD-10-PCS; principal; 2019-05-06 07:15)
DX: F33.2 Major depressive disorder, recurrent severe without psychotic features (principal)
CPT/HCPCS: 90870; 94760

== ENCOUNTER 2019-05-21 05:35 | Day surgery (SDC) | payer OTHER ==
[2019-05-21] MEDS ORDERED: ONDANSETRON 4 MG/2 ML VIAL IVPUSH PRN (06:58)
[2019-05-21] MEDS ORDERED: LACTATED RINGERS SOLUTION 1,000 ML IV SCH (07:00)
[2019-05-21 07:50] VITALS: TEMP 97.4; BMI 18.4
[2019-05-21] MEDS ORDERED: KETAMINE HCL 500 MG/10 ML VIAL ONE (08:35)
--- NOTE | 2019-05-21 08:35 | HP ---
CHIEF COMPLAINT: Major depressive disorder PCP: None [facility] [place] HISTORY OF PRESENT ILLNESS: 63 year-old female with a PMH significant for major depressive disorder, began ECT in 2016. She presents today for ECT. Recent Events: * none reported PAST MEDICAL HISTORY: Major depressive disorder Collagenous colitis (in remission since October 2016) ETOH abuse (sober 36 years) PAST SURGICAL HISTORY: Left humerus fracture x 1 ectopic x 2 Family history: non-contributory Social History: lives with son Smoking:d/fredis tobacco use 12/2017 Alcohol:denies Drugs: denies Allergies No Known Drug Allergies Allergy (Verified 04/15/19 17:36) HOME MEDICATIONS: Home Medications Medication Instructions Recorded Diazepam 10 mg PO HS 03/30/16 Diazepam 20 mg PO BID 03/30/16 Multivitamins [Multivit ([facility] 1 tab PO HS 03/30/16 Formulary)] Pantoprazole Sodium [Protonix] 40 mg PO DAILY 03/30/16 Potassium Citrate [Potassium 1,080 mg PO HS 03/30/16 Citrate ER] Topiramate 50 mg PO DAILY 03/30/16 Topiramate 100 mg PO HS 03/30/16 Ziprasidone [Geodon -] 80 mg PO BID 03/30/16 Loratadine [Claritin] 10 mg PO DAILY 01/30/17 Vortioxetine Hydrobromide 20 mg PO HS 11/06/18 [Trintellix] REVIEW OF SYSTEMS CONSTITUTIONAL: Absent: fever, chills, diaphoresis, generalized weakness, malaise, loss of appetite, weight change HEENT: Absent: rhinorrhea, nasal congestion, throat pain, throat swelling, difficulty swallowing, mouth swelling, ear pain, eye pain, visual changes CARDIOVASCULAR: Absent: chest pain, syncope, palpitations, irregular heart rate, lightheadedness , peripheral edema RESPIRATORY: Absent: cough, shortness of breath, dyspnea with exertion, orthopnea, wheezing, stridor, hemoptysis GASTROINTESTINAL: Absent: abdominal pain, abdominal distension, nausea, vomiting, diarrhea, constipation, melena, hematochezia GENITOURINARY: Absent: dysuria, frequency, urgency, hesitancy, hematuria, flank pain, genital pain MUSCULOSKELETAL: Absent: myalgia, arthralgia, joint swelling, back pain, neck pain SKIN: Absent: rash, itching, pallor HEMATOLOGIC/IMMUNOLOGIC: Absent: easy bleeding, easy bruising, lymphadenopathy, frequent infections ENDOCRINE: Absent: unexplained weight gain, unexplained weight loss, heat intolerance, cold intolerance NEUROLOGIC: Absent: headache, focal weakness or paresthesias, dizziness, unsteady gait, seizure, mental status changes, bladder or bowel incontinence PHYSICAL EXAMINATION Vital Signs - 24 hr 05/21/19 07:46 Temperature 97.4 F L Pulse Rate 80 Respiratory 18 Rate Blood Pressure 99/67 O2 Sat by Pulse 98 Oximetry (%) GENERAL: Awake, alert, and fully oriented, in no acute distress. HEAD: Normal with no signs of trauma. EYES: Pupils equal, round and reactive to light, sclera anicteric, conjunctiva clear. LUNGS: Breath sounds equal, clear to auscultation bilaterally. No wheezes, and no crackles. No accessory muscle use. HEART: Regular rate and rhythm, normal S1 and S2 ABDOMEN: Soft, nontender, not distended MUSCULOSKELETAL: Normal range of motion at all joints. No bony deformities or tenderness. No CVA tenderness. UPPER EXTREMITIES: 2+ pulses, warm, well-perfused. No cyanosis. No clubbing. No peripheral edema. LOWER EXTREMITIES: 2+ pulses, warm, well-perfused. No calf tenderness. No peripheral edema. NEUROLOGICAL: Cranial nerves II-XII intact. Normal speech. ASSESSMENT/PLAN: 63 year-old female with a PMH significant for major depressive disorder. She presents today for ECT. Cardiac --no cardiac history --Revised Cardiac Risk Index for Pre-Operative Risk: 0 points, 0.4% risk of major cardiac event Pulmonary --no pulmonary history Neurological --no neurological or neurosurgical history; no history of trauma Anesthesia --no reported problems with anesthesia ECT is a low risk procedure. The relative benefits of the planned procedure outweigh the relative risks for this patient at this time. Visit type - Emergency Visit Emergency Visit: No - New Patient This patient is new to me today: Yes Date on this admission: 05/21/19 - Critical Care Critical Care patient: No
[2019-05-21 09:58] VITALS: BP 117/73; PULSE 79
== END 2019-05-21 10:46 | disposition home or self-care (01) ==
LOC: FECT 05:35
PROVIDERS: ATTEND Psychiatry & Neurology Psychiatry
PROC: GZB4ZZZ Other Electroconvulsive Therapy (ICD-10-PCS; principal; 2019-05-21 07:15)
DX: F32.9 Major depressive disorder, single episode, unspecified (principal)
CPT/HCPCS: 90870; 94760

== ENCOUNTER 2019-06-03 05:43 | Day surgery (SDC) | payer OTHER ==
[2019-06-03 07:00] VITALS: BMI 18.3
[2019-06-03] MEDS ORDERED: KETAMINE HCL 500 MG/10 ML VIAL ONE (07:21)
[2019-06-03] MEDS ORDERED: ONDANSETRON *ODT* 4 MG TABLET ONE (09:27)
[2019-06-03 09:37] VITALS: TEMP 97.6
[2019-06-03 10:46] VITALS: BP 114/72; PULSE 76
== END 2019-06-03 10:15 | disposition home or self-care (01) ==
LOC: FECT 05:43
PROVIDERS: ATTEND Psychiatry & Neurology Psychiatry
PROC: GZB4ZZZ Other Electroconvulsive Therapy (ICD-10-PCS; principal; 2019-06-03 07:30)
DX: F33.2 Major depressive disorder, recurrent severe without psychotic features (principal)
CPT/HCPCS: 90870; 94760; Q0162